=== PATIENT | male | born 1955 | race Caucasian/White ===

== ENCOUNTER → 2017-11-03 09:38 | Outpatient (CLI) | payer BC, SELFPAY ==
[2017-11-03 11:12] LABS: Blood Urea Nitrogen 19 mg/dL (7-18); Creatinine,Serum 1.07 mg/dL (0.70-1.30); Estimated Glomerular Filt Rate 70 ml/min (>60); GFR (African American) 85 ML/MIN (>60)
== END ==
PROVIDERS: Visit Provider Family Medicine
DX: R59.0 Localized enlarged lymph nodes (principal)
CPT/HCPCS: 36415; 82565; 84520

== ENCOUNTER → 2017-11-04 10:15 | Outpatient (CLI) | payer BC, SELFPAY ==
--- NOTE | 2017-11-04 10:36 | CT_ITS ---
CT abdomen pelvis w con CLINICAL INDICATION: Lymphadenopathy, right groin pain and discomfort ITS.REASON: LYMPHADENOPATHY ORDERING PHYSICIAN: Christopher Singleton MD PATIENT AGE: 62 years COMPARISON: 05/03/2013 TECHNIQUE: Axial images obtained with sagittal and coronal reformats. All CT scans at the facility use one or more dose reduction, viz: automated exposure control, ma/kV adjustment per patient size (including targeted exams where dose is matched to indication, i.e. head), or iterative reconstruction technique. PROCEDURE: Oral Contrast: Redicat IV Contrast: 75 mL's of Isovue-370. FINDINGS: Lung bases are clear. There are multiple hepatic cysts measuring up to 17 mm. No radio opaque gallstones. The spleen, adrenal glands, and pancreas are unremarkable. No renal or ureteral calculi. No hydronephrosis. There are bilateral renal cysts measuring up to 5.5 cm left. No intestinal obstruction or free air. Unremarkable appendix. No evidence of diverticulitis. There are diverticula of the descending and sigmoid colon. No pelvic mass or abnormal fluid collection or focal inflammatory change of the pelvis. There is a tiny umbilical hernia containing fat. There are scattered small lymph nodes in the mesentery's. No enlarged lymph nodes are evident within the abdomen or pelvis. Small nodes are present in the inguinal region but no enlarged lymph nodes are evident. No evidence of abdominal wall or inguinal hernia. No acute bony anomalies. Degenerative changes are present in the lumbar spine with mild chronic wedging of T12. IMPRESSION: 1. No change from 05/03/2013 with no acute abdominal or pelvic findings. 2. Multiple hepatic cysts. 3. No enlarged lymph nodes apparent. No evidence of abdominal wall hernias
== END ==
PROVIDERS: Family Provider Family Medicine; PCP Family Medicine; Visit Provider Family Medicine
DX: R59.0 Localized enlarged lymph nodes (principal)
CPT/HCPCS: 74177; Q9967

== ENCOUNTER 2018-09-16 23:46 | Emergency (ER) | payer BC, SELFPAY ==
[2018-09-16 23:46] VITALS: BP 193/85; PULSE 74; RESP 18; TEMP 36.8; O2SAT 99; BMI 31.8
--- NOTE | 2018-09-16 23:54 | [facility].EDGENADL ---
ED Disposition Clinical Impression: Cervical radiculopathy Right shoulder pain Qualifiers: Chronicity: acute Qualified Code(s): M25.511 - Pain in right shoulder Disposition: Home, Self-Care Condition on Discharge: Good Additional Instructions: Prednisone as prescribed. Follow-up with your primary care doctor, call tomorrow for appointment. Follow-up with primary care doctor for final interpretation of shoulder x-ray, bone lesion and right humerus. Return to the emergency department if symptoms worsen. Prescriptions: predniSONE [Prednisone 20mg Tab] 20 mg PO BID #10 tab Referrals: Provider,Referral, [Primary Care Provider] - - Critical Care Critical Care Time: No Attestation: On , the high probability of a clinically significant, sudden or life threatening deterioration of the following system(s) required my full and direct attention, intervention and personal management. The time I documented below is in addition to time spent performing reported procedures but includes the following listed in this critical care notation. Medical Decision Making - Chapo Inquiry Pt receiving controlled substance: No Vital Signs: 09/16/18 23:46 Temperature 98.3 F Temperature Source Oral Pulse Rate [Right Radial] 74 Respiratory Rate 18 Blood Pressure [Right Arm] 193/85 H Blood Pressure Mean [Right Arm] 121 02 Sat by Pulse Oximetry 99 Oxygen Delivery Method Room Air - Lab Data Lab Results 09/16/18 23:50: WBC 7.9, RBC 4.91, Hgb 13.4 L, Hct 43.3, MCV 88.1, MCH 27.3, MCHC 31.0 L, RDW 12.9, Plt Count 182, MPV 6.6 L, Neut % (Auto) 44.7, Lymph % (Auto) 45.9, [place] % (Auto) 6.5, Eos % (Auto) 2.2, Baso % (Auto) 0.7, Neut # (Auto) 3.5, Lymph # (Auto) 3.6, [place] # (Auto) 0.5, Eos # (Auto) 0.2, Baso # (Auto) 0.1 09/16/18 23:50: Sodium 145, Potassium 3.7, Chloride 107, Carbon Dioxide 27, Anion Gap 14.7, BUN 19 H, Creatinine 1.19, Estimated Creat Clear 105, Estimated GFR 62, Est GFR ( Amer) 75, Glucose 105, Calcium 9.3, Total Bilirubin 0.6, AST 20, ALT 33, Alkaline Phosphatase 109, Troponin I < 0.02, Total Protein 7.2, Albumin 3.9, Globulin 3.3 H, Albumin/Globulin Ratio 1.2 Result diagrams: 09/16/18 23:50 09/16/18 23:50 Orders (Tests/Meds): ED MEDICATIONS Generic Name Dose Route Start Last Admin Trade Name Freq PRN Reason Stop Dose Admin Sodium Chloride 1,000 mls @ 999 mls/hr 09/16/18 23:45 Sod Chlor 0.9% 1000ml Bag IV 09/17/18 00:45 .Q1H1M EPHRAIM ORDERS Category Date Time Status XR chest 2V Stat Exams 09/17/18 00:01 Taken XR shoulder RT min 2V Stat Exams 09/17/18 00:01 Taken - Radiology Data #1 Image(s): Chest, Shoulder Image Reviewed: Yes I reviewed the patient's radiology image Chest: No acute disease. Shoulder: Sclerotic density in proximal right humerus. Degenerative changes of acromioclavicular and glenohumeral joints. - ECG Data Tracing #1 EKG interpreted by Siddhartha Perez MD: Rhythm: sinus Rate: 69 [place]: normal Ectopy: none Conduction: normal ST Segment Changes: none T Wave Changes: none Q Waves: none No evidence of acute ischemia or injury Normal electrocardiogram General Adult HPI - General Chief complaint: Syncope Stated complaint: arm pain Time Seen by Provider: 09/17/18 01:03 Mode of Arrival: Wheelchair Limitations: No Limitations Description of Symptoms (Recalled from ER Triage Doc. by RN): while watching a movie tonight approx 15 min ago at 1130 pt right shoulder and back became numb and patient felt shaky pt states he became nauseated and tried to walk around and became light headed. pt states that he is having some shortness of breath also. pt states that his right shoulder has been bothering him for approx 1 week. - History of Present Illness HPI narrative: States he has been having pain in his right shoulder for about a week anteriorly. He put his right arm over his head tonight because he thought it made it feel bett
--- NOTE | 2018-09-17 00:01 | XR_ITS ---
XR shoulder RT min 2V Ordering Physician: Siddhartha Perez MD Patient Age: 63 years: Male HISTORY: ITS.REASON: pain pain proximal humerus just below the joint past 5 days no known injury. The lifting a Joseph's. TECHNIQUE: 3 views right shoulder. COMPARISON :Today's 09/17/2018 CXR. & September 2010 CXR Left shoulder April 2008 FINDINGS . No fracture nor dislocation at the right shoulder the glenohumeral joint is intact. Humeral head and neck intact Hypertrophic, degenerative changes at right AC joint. Inferior spurring and may encroach upon the medial outlet. There is Approximate 3 cm length x 2 cm wide focal very dense ovoid sclerotic area at the proximal right humeral shaft. No prior films for comparison.. The bone in this region shows no expansion or destruction. No endosteal changes. This dense sclerotic focus is fairly well marginated. Period Suspect more likely a indolent or benign features such as osteoma but cannot totally exclude more significant sclerotic/or blastic lesion or metastatic lesion.. Suggest a follow-up right humerus in 3-4 weeks to further evaluate. If any outside films of humerus available to confirm stability of the be helpful as well. IMPRESSION:... 1. No acute findings at the right shoulder. No fracture nor dislocation 2. . AC joint hypertrophy ... Glenohumeral joint is intact . 3.... Approximate 3 cm length x 2 cm ovoid sclerotic focus at proximal humeral shaft. More likely indolent or benign feature, but suggest Follow-Up Right Humerus radiograph within 3 - 4 weeks or sooner if pain progresses. (Any outside films of the right humerus would also be helpful to confirm stable character)
--- NOTE | 2018-09-17 00:01 | XR_ITS ---
XR chest 2V HISTORY: ITS.REASON: weakness ORDERING PHYSICIAN: Siddhartha Perez MD PATIENT AGE: 63 years Technique: PA and lateral chest COMPARISON: September 2010 PA and lateral chest FINDINGS: Lungs are clear with no active disease. No focal infiltrate. No effusion. No pulmonary nodule or mass evident. Duyen and mediastinum appear satisfactory with No hilar no mediastinal adenopathy. No pleural effusion or pneumothorax. The patient does have some progressive marginal osteophytes at the lower T-spine. The most evident progressive generous marginal osteophyte extends left at at T10-11, with marginal ossified to also seen throughout the mid right T-spine showing slight progression since 2010.. Lateral film shows mild diffuse anterior hyperostosis which has become more evident throughout the mid T-spine since 2010. CXR IMPRESSION....... Lungs clear nothing definite acute. progressive degenerative changes T-spine. . progression of marginal osteophytes & hyperostosis at T-spine
[2018-09-17 00:04] LABS: Basophils # 0.1 K/mm3 (0-0.2); Basophils % 0.7 % (0.1-2.0); Eosinophils # 0.2 K/mm3 (0.0-0.4); Eosinophils % 2.2 % (0.1-12.0); Hematocrit 43.3 % (42.0-52.0); Hemoglobin 13.4 g/dL (14.1-18.0); Lymphocytes # 3.6 K/mm3 (0.7-4.5); Lymphocytes % 45.9 % (10-50); Mean Corpuscular Hemoglobin 27.3 pg (27.0-31.2); Mean Corpuscular Volume 88.1 fl (80-94); Mean Platelet Volume 6.6 fl (7.4-10.4); Monocytes # 0.5 K/mm3 (0.1-1.0); Monocytes % 6.5 % (1.7-9.3); Neutrophils # 3.5 K/mm3 (1.8-7.8); Neutrophils % 44.7 % (37.0-80.0); Platelet Count 182 K/mm3 (142-424); Red Blood Count 4.91 M/mm3 (4.60-6.20); Red Cell Distribution Width 12.9 % (11.5-17.5); White Blood Count 7.9 K/mm3 (4.8-10.8)
[2018-09-17 00:26] LABS: Alanine Aminotransferase 33 U/L (12-78); Albumin Level 3.9 gm/dL (3.4-5.0); Albumin/Globulin Ratio 1.2 (1.1-1.8); Alkaline Phosphatase 109 U/L (46-116); Anion Gap 14.7 mEq/L (5-15); Aspartate Amino Transferase 20 U/L (15-37); Bilirubin,Total 0.6 mg/dL (0.2-1.0); Blood Urea Nitrogen 19 mg/dL (7-18); Calcium 9.3 mg/dL (8.5-10.1); Carbon Dioxide 27 mmol/L (21.0-32.0); Chloride 107 mmol/L (98-107); Creatinine Clearance Estimated 105 mL/min (50-200); Creatinine,Serum 1.19 mg/dL (0.70-1.30); Estimated Glomerular Filt Rate 62 ml/min (>60); GFR (African American) 75 ML/MIN (>60); Globulin 3.3 gm/dl (1.3-3.2); Glucose 105 mg/dL (74-106); Potassium 3.7 mmoL/L (3.5-5.1); Sodium 145 mmol/L (136-145); Total Protein,Serum 7.2 gm/dL (6.4-8.2); Troponin I < 0.02 ng/ml (0.00-0.06)
[2018-09-17 02:49] VITALS: BP 146/79; PULSE 89; RESP 17; TEMP 36.7; O2SAT 100
== END 2018-09-17 02:49 | disposition home or self-care (01) ==
PROVIDERS: Emergency Provider Emergency Medicine
DX: M54.12 Radiculopathy, cervical region (principal); M25.511 Pain in right shoulder
CPT/HCPCS: 71046; 73030; 80053; 84484; 85025; 93005; 96365; 96375; 99283

== ENCOUNTER → 2018-10-02 15:03 | Outpatient (CLI) | payer BC, SELFPAY ==
--- NOTE | 2018-10-02 15:09 | XR_ITS ---
EXAM: XR cervical spine 5V HISTORY: ITS.REASON: RT UPPER EXTREMITY NUMBNESS ORDERING PHYSICIAN: Christopher Singleton MD PATIENT AGE: 63 years COMPARISON: None FINDINGS: Normal alignment. Mild degenerative changes with small anterior osteophytes at C4, C5, and C6. Facet and uncovertebral hypertrophic changes are noted. There is mild foraminal narrowing on the right at C3-C4 and on the left at C2-C3 from facet and uncovertebral hypertrophy. No acute fracture or dislocation. No lytic or blastic change. IMPRESSION: Mild degenerative changes as described above, no acute finding. Right-sided foraminal narrowing at C3-C4 and left-sided foraminal narrowing at C2-C3
== END ==
PROVIDERS: PCP Family Medicine; Visit Provider Family Medicine
DX: R20.0 Anesthesia of skin (principal)
CPT/HCPCS: 72050

== ENCOUNTER → 2018-10-23 09:55 | Outpatient (POV) | payer BC, SELFPAY | PROVIDERS: Visit Provider Specialist | DX: R20.2 Paresthesia of skin (principal); M79.601 Pain in right arm | CPT/HCPCS: 95886; 95908 ==

== ENCOUNTER → 2018-10-23 14:06 | Outpatient (CLI) | payer BC, SELFPAY ==
--- NOTE | 2018-10-23 14:10 | XR_ITS ---
XR hip RT 2-3V w/pelvis HISTORY: ITS.REASON: RT HIP PAIN ORDERING PHYSICIAN: Christopher Singleton MD PATIENT AGE: 63 years COMPARISON: None FINDINGS: There are mild osteoarthritic changes of the right hip. Small osteophyte is noted projecting off the superior aspect of the lesser trochanter and there is a small sclerotic focus in the medial aspect of the acetabular area which may be due to small bone island. No fracture or dislocation. No lytic or blastic change. Small bone island also noted along the right ilium laterally and superiorly IMPRESSION: 1. Mild osteoarthritis of the right hip.
== END ==
PROVIDERS: PCP Family Medicine; Visit Provider Family Medicine
DX: M25.551 Pain in right hip (principal)
CPT/HCPCS: 73502

== ENCOUNTER → 2019-04-13 09:38 | Outpatient (CLI) | payer OTHER, SELFPAY ==
--- NOTE | 2019-04-13 09:42 | XR_ITS ---
PROCEDURE: XR SHOULDER RT MIN 2V CLINICAL INDICATION: RT SHOULDER PAIN COMPARISON: Shoulder R from 09/17/2018 FINDINGS: There are moderate to severe osteoarthritic changes of the acromioclavicular joint with spurring at the AC joint. Some of the spurs projecting inferior and may be causing impingement upon supraspinatus tendon. No significant subacromial stenosis. There are minor osteoarthritic changes of the glenohumeral joint. There is a densely calcified lesion involving the proximal shaft of the humerus which is well-circumscribed measuring 2.8 cm and appears stable IMPRESSION: 1. Osteoarthritic change of the AC joint with bony spurring with mild osteoarthritic changes of the glenohumeral joint. 2. Stable sclerotic lesion of the proximal humerus. This is well-circumscribed and not significantly changed Dictated by: Bimal Encarnacion MD 04/13/2019 10:06 Electronically signed by Bimal Encarnacion MD in [place] 04/13/2019 10:06
== END ==
PROVIDERS: PCP Family Medicine; Visit Provider Surgery
DX: M25.511 Pain in right shoulder (principal)
CPT/HCPCS: 73030

== ENCOUNTER → 2019-04-19 09:28 | Outpatient (CLI) | payer BC, SELFPAY ==
[2019-04-19 10:03] LABS: Blood Urea Nitrogen 23 mg/dL (7-18); Creatinine,Serum 1.04 mg/dL (0.70-1.30); Estimated Glomerular Filt Rate 72 ml/min (>60); GFR (African American) 87 ML/MIN (>60)
== END ==
PROVIDERS: Visit Provider Surgery
DX: Z01.818 Encounter for other preprocedural examination (principal); R10.9 Unspecified abdominal pain; R11.2 Nausea with vomiting, unspecified
CPT/HCPCS: 36415; 82565; 84520

== ENCOUNTER → 2019-04-20 09:29 | Outpatient (CLI) | payer BC, SELFPAY ==
--- NOTE | 2019-04-20 09:29 | CT_ITS ---
PROCEDURE: CT ABDOMEN PELVIS W CON CLINICAL INDICATION: abdominal pain COMPARISON: ABDPELW CT abdomen pelvis w con from 11/04/2017 TECHNIQUE: IV Contrast: 75ML OPTIRAY 350 Oral Contrast 20ml Gastroview Axial images obtained with sagittal and coronal reformats. All CT scans at the facility use one or more dose reduction, viz: automated exposure control, ma/kV adjustment per patient size (including targeted exams where dose is matched to indication, i.e. head), or iterative reconstruction technique. FINDINGS: LOWER THORAX: There is a small amount of atelectasis in both lung bases. ABDOMEN & PELVIS: There is fatty infiltration of the liver. Multiple hepatic and renal cysts are again noted and not significantly changed largest cyst in the lower pole the left kidney measures up to 7.5 centimeters. A 3 millimeter nonobstructing stone is seen in the lower pole of the right kidney. There is no ureteral stone. Remaining intra-abdominal organs have a normal appearance. There is no free fluid lymphadenopathy or focal inflammatory process. The appendix has a normal appearance. Calcifications are seen in the abdominal aorta and and iliac vessels. There is no aneurysm. There is colonic diverticulosis without diverticulitis. Chronic compression deformity of T12 is unchanged. Degenerative changes are seen in spine. Dystrophic calcifications are seen in the prostate gland without a discrete mass. IMPRESSION: No acute findings or significant changes compared 11/04/2017. Dictated by: Geo Lara 04/20/2019 10:48 Electronically signed by Geo Lara in [facility] 04/20/2019 10:48
== END ==
PROVIDERS: PCP Family Medicine; Visit Provider Surgery
DX: R10.9 Unspecified abdominal pain (principal)
CPT/HCPCS: 74177; Q9967

== ENCOUNTER → 2019-04-30 12:12 | Outpatient (CLI) | payer BC, SELFPAY ==
--- NOTE | 2019-04-30 12:19 | XR_ITS ---
PROCEDURE: XR ABDOMEN MIN 2V CLINICAL INDICATION: LT LOW QUAD PAIN Left lower quadrant pain COMPARISON: No exams were available for comparison FINDINGS: Upright and supine views of the abdomen show a nonspecific bowel gas pattern. No intestinal obstruction or free air. There are few scattered air-fluid levels within the small bowel which do not appear distended. There is questionable bowel wall thickening in the left mid abdominal region. Abdominal CT may provide further evaluation if clinically warranted. IMPRESSION: Nonspecific bowel gas pattern with a few scattered small bowel air-fluid levels and questionable bowel wall thickening in the mid abdominal region on the left Dictated by: Bimal Encarnacion MD 04/30/2019 13:11 Electronically signed by Bimal Encarnacion MD in [facility] 04/30/2019 13:11
== END ==
PROVIDERS: PCP Family Medicine; Visit Provider Family Medicine
DX: R10.32 Left lower quadrant pain (principal)
CPT/HCPCS: 74019

== ENCOUNTER → 2019-05-14 10:36 | Outpatient (CLI) | payer BC, SELFPAY ==
[2019-05-14 10:38] LABS: Adenovirus F 40/41, stool Not Detected (NotDetected); Astrovirus Not Detected (NotDetected); Campylobacter Not Detected (NotDetected); Clostridium Difficile A/B, PCR Not Detected (NotDetected); Cryptosporidium Not Detected (NotDetected); Cyclospora Cayetanesis Not Detected (NotDetected); Entamoeba histolytica Not Detected (NotDetected); Enteroaggregative E coli Not Detected (NotDetected); Enteropathogenic E coli Not Detected (NotDetected); Enterotoxigenic E coli Not Detected (NotDetected); Giardia lamblia Not Detected (NotDetected); Norovirus Not Detected (NotDetected); Plesimonas Shigalloides, PCR Not Detected (NotDetected); Rotavirus A Not Detected (NotDetected); Salmonella, PCR Not Detected (NotDetected); Sapovirus Not Detected (NotDetected); Shiga-like toxin E coli Not Detected (NotDetected); Shigella Enterovasive E coli Not Detected (NotDetected); Vibrio Cholerae Not Detected (NotDetected); Vibrio, PCR Not Detected (NotDetected); Yersinia Entercolitica, PCR Not Detected (NotDetected)
== END ==
PROVIDERS: Visit Provider Family Medicine
DX: R19.7 Diarrhea, unspecified (principal)
CPT/HCPCS: 87507

== ENCOUNTER → 2019-11-21 16:13 | Outpatient (CLI) | payer BC, SELFPAY ==
[2019-11-21 17:56] LABS: Blood Urea Nitrogen 20 mg/dl (9-20); Estimated Glomerular Filt Rate 68 ml/min (>60); GFR (African American) 82 ML/MIN (>60)
== END ==
PROVIDERS: Visit Provider Family Medicine
DX: K57.32 Diverticulitis of large intestine without perforation or abscess without bleeding (principal)
CPT/HCPCS: 36415; 82565; 84520

== ENCOUNTER → 2019-11-22 11:22 | Outpatient (CLI) | payer BC, SELFPAY ==
--- NOTE | 2019-11-22 11:35 | CT_ITS ---
PROCEDURE: CT ABDOMEN PELVIS W CON CLINICAL INDICATION: DIVERTICULITIS Left lower quadrant pain COMPARISON: CT CT ABDOMEN PELVIS W CON from 04/20/2019 TECHNIQUE: IV Contrast: 75ML OPTIRAY 350 Oral Contrast 450ml Redicat Axial images obtained with sagittal and coronal reformats. All CT scans at the facility use one or more dose reduction, viz: automated exposure control, ma/kV adjustment per patient size (including targeted exams where dose is matched to indication, i.e. head), or iterative reconstruction technique. FINDINGS: LOWER THORAX: 5 mm noncalcified nodules present in the right lower lobe posteriorly ABDOMEN & PELVIS: There are multiple hypodense nodules of the liver the largest in the quadrate area measuring 18 mm. These may represent hepatic cysts. The spleen, adrenal glands, and pancreas have an unremarkable appearance. There are bilateral renal cysts measuring up to 7 cm in the lower pole on the left. There is a nonobstructing 4 mm stone in the lower pole of the right kidney. No hydronephrosis. No ureteral calculi. No evidence of appendicitis. There are few scattered small mesenteric lymph nodes which are nonspecific. There is colonic diverticulosis. There is focal stranding of the pericolic fat in the left lower quadrant at the junction of the descending and sigmoid colon consistent with acute diverticulitis. No abscess or perforation. There are degenerative changes of the spine and hips. Scattered bone islands are noted. IMPRESSION: Colonic diverticulosis with acute diverticulitis involving the junction of the descending and sigmoid colon in the left lower quadrant. No evidence of abscess or perforation. Right nephrolithiasis Multiple hepatic cysts Dictated by: Bimal Encarnacion MD 11/22/2019 15:44 Bimal Encarnacion MD in [place] 11/22/2019 15:44
== END ==
PROVIDERS: PCP Family Medicine; Visit Provider Family Medicine
DX: K57.32 Diverticulitis of large intestine without perforation or abscess without bleeding (principal)
CPT/HCPCS: 74177; Q9967

== ENCOUNTER 2020-05-06 13:00 | Outpatient (RCR) | payer BC, SELFPAY ==
--- NOTE | 2020-04-28 14:43 | HMH.PTOPEV ---
PT Outpatient Evaluation Rehab PT Outpatient Evaluation Start: 04/28/20 13:06 Freq: Status: Active Protocol: Document 04/28/20 14:21 PHOASHLEY (Rec: 04/28/20 14:43 PHORNE [id number]) Electronically Signed By Vaibhav Ford, PT 04/28/20 14:21 Outpatient Therapy Subjective History Subjective History Pt is 65 yowm who presents with c/o pain in the L shld x ~ 8 mos (2 falls onto the L shld in that time-frame) and R low back x ~ 1-2 wks. He reports the low back hurts worse because I fell back into the tub because my left shoulder hurt when I was trying to get out. He reports hx of L shld RCT repair ~ 10 yrs ago and Lumbar compression fxs ~ 20 yrs ago. He reports the L shld is much improved over the past 2-3 wks. He reports the low back has improved a little over the past week and he has no pain with walking, only transfers. He reports other PMH of HTN. Chief Complaint Pain,Stiff Symptom Type Ache,Sharp Symptoms Relieved By Rest/Positioning,Heat,Ice Prior Functional Limitations None Current Functional Limitations Bending/Stooping Symptom Description Activity Dependent Level of pain today (0-10) 0 Pain scale - at its worst (0-10) 9 Shoulder/Elbow Eval Shoulder Objective Measurements Palpation Tenderness tenderness shoulder exam standard left tenderness over the bicipital tendon left shoulder exam standard Shoulder ROM Left full ROM shoulder exam standard left Shoulder MMT Shoulder Abduction Strength Grade 4- Good- Shoulder Extension Strength Grade 4- Good- Shoulder Flexion Strength Grade 4- Good- Shoulder External Rotation Strength 4 Good Grade Shoulder Internal Rotation Strength 4- Good- Grade Shoulder Special Tests Shoulder Empty Can (Supraspinatus) Test Negative Left,Negative Right Shoulder Sethi-Rodolfo Impingement Negative Right,Positive Left Test Shoulder [place] Test Negative Left,Negative Right Elbow Objective Measurements Lumbopelvic Eval Palapation tenderness right Lumbar/Sacral Palpation Findings Tenderness Lumbar/Sacral Palpation Overall Comment R SI and Quad Lumborum Accessory Movement L-spine Vertebrae Accessory Movements Central P/A Strunk that Elicit Symptoms L2
== END 2020-05-06 13:05 | disposition home or self-care (01) ==
LOC: PT 13:00
PROVIDERS: PCP Family Medicine; Visit Provider Family Medicine
DX: M54.5 Low back pain (principal); M25.512 Pain in left shoulder
CPT/HCPCS: 97010; 97014; 97033; 97035; 97110; 97140; 97163; G0283

== ENCOUNTER → 2020-05-07 12:36 | Outpatient (CLI) | payer BC, SELFPAY ==
--- NOTE | 2020-05-07 12:43 | XR_ITS ---
PROCEDURE: XR LUMBAR SPINE MIN 4V CLINICAL INDICATION: RT SIDE SACROILIAC JOINT DYSFUNCTION COMPARISON: CT CT ABDOMEN PELVIS W CON from 11/22/2019 FINDINGS: There are mild osteoarthritic changes of both SI joints with decrease in the joint spaces and mild osteosclerosis along the superior aspect of the joint. No bony lytic process evident. Mild osteoarthritis is present in the hips on both sides There is normal alignment. Mild degenerative disc disease is present at T12-L1 L2-L3 and L4-5. Mild sclerosis of the endplates are noted. A sclerotic region is present in the L3 vertebral body posteriorly at 11 mm and may be due to a bone island. There is slight decrease in height anteriorly of L3 which has developed since 11/22/2019 suggesting mild compression change. Anterior osteophytes are present at L3-L4. Possible bone island of the right ilium superiorly at 6 mm. There is chronic wedge deformity of T11 and T12 with partial fusion anteriorly and degenerative disc disease at T12-L1 with anterior osteophytes. IMPRESSION: 1. Lumbar spondylosis as described above. 2. Minimal wedge compression changes of L3 which have developed since the previous exam without retropulsion. 3. Osteoarthritic change of the SI joints Dictated by: Bimal Encarnacion MD 05/07/2020 14:01 Bimal Encarnacion MD in [place] 05/07/2020 14:01
== END ==
PROVIDERS: PCP Family Medicine; Visit Provider Family Medicine
DX: M53.3 Sacrococcygeal disorders, not elsewhere classified (principal)
CPT/HCPCS: 72110

== ENCOUNTER → 2020-05-14 15:08 | Outpatient (CLI) | payer BC, SELFPAY ==
[2020-05-14 16:50] LABS: Chloride 98 mmol/L (98-107); Potassium 3.9 mmoL/L (3.5-5.1); Sodium 138 mmol/L (136-145)
[2020-05-14 16:53] LABS: Alanine Aminotransferase 23 U/L (12-78); Albumin Level 4.6 g/dl (3.5-5.0); Albumin/Globulin Ratio 1.8 (1.1-1.8); Alkaline Phosphatase 60 U/L (38-126); Anion Gap 8.9 mEq/L (5-15); Aspartate Amino Transferase 22 U/L (17-59); Bilirubin,Total 1.2 mg/dl (0.2-1.3); Blood Urea Nitrogen 21 mg/dl (9-20); Carbon Dioxide 35 mmol/L (22.0-30.0); Estimated Glomerular Filt Rate 67 ml/min (>60); GFR (African American) 82 ML/MIN (>60); Globulin 2.6 g/dL (1.3-3.2); Total Protein,Serum 7.2 g/dl (6.3-8.2)
[2020-05-14 16:54] LABS: Calcium 9.8 mg/dl (8.4-10.2); Glucose 121 mg/dl (74-100)
== END ==
PROVIDERS: Visit Provider Family Medicine
DX: M54.41 Lumbago with sciatica, right side (principal); S32.030D Wedge compression fracture of third lumbar vertebra, subsequent encounter for fracture with routine healing
CPT/HCPCS: 36415; 80053

== ENCOUNTER → 2020-05-15 12:44 | Outpatient (CLI) | payer BC, SELFPAY ==
--- NOTE | 2020-05-15 12:48 | MR_ITS ---
PROCEDURE: MR LUMBAR SPINE WO/W CON CLINICAL INDICATION: ACUTE MIDLINE LOW BACK PAIN, COMPRESSION FX Line low back pain history of compression fracture 19 years ago. Fell 2-3 weeks ago in the bathroom now with right-sided low back pain and numbness in the right leg. Completed physical therapy x2 weeks. COMPARISON: CT CT ABDOMEN PELVIS W CON from 11/22/2019 CR XR LUMBAR SPINE MIN 4V from 05/07/2020 TECHNIQUE: Standard multiplanar multiecho sequences are performed contrast. Following administration of 23 cc ProHance intravenously. 3-D MIP and myelographic images are also rendered and reviewed FINDINGS: There is normal height and alignment of the lumbar vertebral bodies. A benign island is incidentally noted in L3. Focal edema or mode developing Modic type 1 signal is is present at the base of an osteophyte projecting from the anterior superior L4 cortex. There is otherwise normal signal throughout the lumbar vertebral bodies. There is normal height of the intervertebral discs. There is no disc herniation. There are multilevel mild diffuse endplate osteophyte disc bulges without significant narrowing the spinal canal. The spinal cord terminates at a normal level the conus. There is moderate to severe bilateral sacroiliac joint degenerative change. A left renal cyst is partly visible. Minimal visualization of the remaining surrounding structures is unremarkable. L1-2: There is mild diffuse endplate osteophyte disc bulge and mild degenerative change of the facet joints. There is no significant narrowing the central spinal. L2-3: There is mild diffuse endplate osteophyte disc bulge and mild degenerative change of the facet joints. There is no significant narrowing the central spinal. L3-4: There is mild diffuse endplate osteophyte disc bulge and mild degenerative change of the facet joints. There is mild bilateral neural foraminal narrowing. L4-5: There is mild diffuse endplate osteophyte disc bulge. There is moderate left greater and mild right facet degenerative change. There is narrowing of the lateral recesses which could impinge on the traversing L5 nerve roots. There is moderate narrowing of the neural foramina. L5-S1: There is mild diffuse endplate osteophyte disc bulge. Incidentally noted is a torn annulus fibrosis without disc herniation. There is moderate bilateral hypertrophic degenerative change of the facet joints. There is moderate bilateral foraminal narrowing. There is a short segment of articulation of the right L5 transverse process with the sacrum, separate from the facet joints. This can be a source of pain. IMPRESSION: 1. No acute disc herniation. 2. Scattered degenerative changes as described above. 3. Lateral recess and foraminal narrowing at L4-5 and moderate bilateral foraminal narrowing at L5-S1. There is no obvious impingement, however correlate clinically to determine if there are clinical findings consistent with L4 or L5 nerve root impingement. 4. SI joint degenerative change and short segment of lumbosacral articulation as further described above. Dictated by: Tomasa Franklin MD 05/16/2020 08:52 Tomasa Franklin MD in [place] 05/16/2020 08:52
== END ==
PROVIDERS: PCP Family Medicine; Visit Provider Family Medicine
DX: M54.41 Lumbago with sciatica, right side (principal); S32.030D Wedge compression fracture of third lumbar vertebra, subsequent encounter for fracture with routine healing
CPT/HCPCS: 72158; 76376; A9576

== ENCOUNTER → 2020-08-14 14:49 | Outpatient (CLI) | payer BC, SELFPAY ==
[2020-08-14 15:11] LABS: Blood Urea Nitrogen 17 mg/dl (9-20); Estimated Glomerular Filt Rate 75 ml/min (>60); GFR (African American) 91 ML/MIN (>60)
--- NOTE | 2020-08-14 16:09 | CT_ITS ---
PROCEDURE INFORMATION: Exam: CT Abdomen And Pelvis With Contrast Exam date and time: 08/14/2020 4:09 PM Age: 65 years old Clinical indication: Abdominal pain; Localized; Patient HX: Lower abd pain TECHNIQUE: Imaging protocol: Computed tomography of the abdomen and pelvis with contrast. Radiation optimization: All CT scans at this facility use at least one of these dose optimization techniques: automated exposure control; mA and/or kV adjustment per patient size (includes targeted exams where dose is matched to clinical indication); or iterative reconstruction. Contrast material: ISOVUE; Contrast volume: 75 ml; Contrast route: IV; COMPARISON: CT ABDOMEN PELVIS W CON 11/22/2019 12:04 PM FINDINGS: Liver: Multiple small hepatic cysts. Gallbladder and bile ducts: Distended gallbladder without evidence of gallstones. Pancreas: Normal. No ductal dilation. Spleen: Normal. No splenomegaly. Adrenal glands: Normal. No mass. Kidneys and ureters: 2 mm nonobstructing right renal stone. Multiple simple bilateral renal cysts measuring up to 7.8 cm in diameter. Stomach and bowel: Diverticulosis. Thickened segment of mid to distal sigmoid colon with adjacent inflammatory fat stranding. No adjacent fluid collection. Appendix: No evidence of appendicitis. Intraperitoneal space: Unremarkable. No free air. No significant fluid collection. Vasculature: Mild atherosclerotic changes are seen within the abdominal aorta and branch vasculature without evidence of aneurysm. Lymph nodes: Unremarkable. No enlarged lymph nodes. Urinary bladder: Unremarkable as visualized. Reproductive: Unremarkable as visualized. Bones/joints: Unremarkable. No acute fracture. Soft tissues: Unremarkable. IMPRESSION: 1. Sigmoid diverticulitis. 2. 2 mm nonobstructing right renal stone. 3. Simple bilateral renal cysts. No follow-up imaging recommended. COMMENTS: Consistent with the [employer]'s Incidental Findings Committee white paper (J Am Cheko Radiol 2018): Any incidental renal lesion less than 1 cm or classified as too small to characterize, or any incidental cystic renal lesion characterized as simple-appearing, is likely benign. No follow-up imaging is recommended for these lesions per consensus recommendations based on imaging criteria.
== END ==
PROVIDERS: Visit Provider Physician Assistant
DX: R10.30 Lower abdominal pain, unspecified (principal)
CPT/HCPCS: 36415; 74177; 82565; 84520; Q9967

== ENCOUNTER 2020-11-28 13:24 | Emergency (ER) | payer BC, SELFPAY ==
[2020-11-28 13:24] VITALS: BP 160/100; PULSE 92; RESP 18; TEMP 36.7; O2SAT 98; BMI 31.2
[2020-11-28 13:35] VITALS: BMI 31.2
--- NOTE | 2020-11-28 13:48 | CT_ITS ---
PROCEDURE: CT CERVICAL SPINE WO CON CLINICAL INDICATION: Fall, spine pain COMPARISON: No exams were available for comparison TECHNIQUE: Axial images obtained with sagittal and coronal reformats. All CT scans at the facility use one or more dose reduction, viz: automated exposure control, ma/kV adjustment per patient size (including targeted exams where dose is matched to indication, i.e. head), or iterative reconstruction technique. Axial spiral CT scanning performed of the cervical spine beginning at the base of the skull and continuing to the upper T-spine. 3-D multiplanar reconstruction with 3-D manipulation of volumetric data set in image rendering was completed by the radiologist and/or technologist with the supervision of the radiologist on independent workstation. FINDINGS: No fracture nor subluxation is evident. Normal prevertebral soft tissues. Facets, neural foramen and vertebral bodies intact and unremarkable. There is no significant disc space narrowing. There minor multilevel osteoarthritic changes of the apophyseal joints mid cervical spine. There is focal calcification of the posterior longitudinal ligament at the C3-4 level. Minor arthritic changes at the C1/C2 relationships. Apices of lungs are clear with no acute findings. IMPRESSION: Cervical spine intact with no acute fracture nor subluxation. Degenerate changes and osteoarthritic changes noted as described Dictated by: Dr. Keshav Jiang MD 11/28/2020 16:08 Dr. Keshav Jiang MD in [facility] 11/28/2020 16:08
--- NOTE | 2020-11-28 13:48 | CT_ITS ---
PROCEDURE: CT THORACIC SPINE WO CON CLINICAL HISTORY: Fall, spine pain COMPARISON: No exams were available for comparison TECHNIQUE: Axial images obtained with sagittal and coronal reformats. All CT scans at the facility use one or more dose reduction, viz: automated exposure control, ma/kV adjustment per patient size (including targeted exams where dose is matched to indication, i.e. head), or iterative reconstruction technique. FINDINGS: There is normal curvature and alignment. There is mild generalized osteopenia. There is mild non recent compression of T12 with possibly 25 percent loss of height anteriorly. Prominent multilevel degenerate changes are seen upper and midthoracic spine. No paraspinal mass. IMPRESSION: Osteopenia, negative for acute compression fracture Dictated by: Dr. Keshav Jiang MD 11/28/2020 16:11 Dr. Keshav Jiang MD in [facility] 11/28/2020 16:11
--- NOTE | 2020-11-28 13:48 | CT_ITS ---
PROCEDURE: CT HEAD/BRAIN WO CON CLINICAL INDICATION: Fall, spine pain COMPARISON: No exams were available for comparison TECHNIQUE: Axial images obtained. All CT scans at the facility use one or more dose reduction, viz: automated exposure control, ma/kV adjustment per patient size (including targeted exams where dose is matched to indication, i.e. head), or iterative reconstruction technique. FINDINGS: No midline shift, mass effect, intracranial hemorrhage, hydrocephalus, or extra-axial fluid collection is evident. The sylvian fissures and cortical sulci mildly. The calvarium has an unremarkable appearance. No mastoid effusion. No sinus air-fluid level. IMPRESSION: Mild age-appropriate cortical atrophy, no acute intracranial pathology noted Dictated by: Dr. Keshav Jiang MD 11/28/2020 16:03 Dr. Keshav Jiang MD in [facility] 11/28/2020 16:03
--- NOTE | 2020-11-28 13:48 | CT_ITS ---
PROCEDURE: CT LUMBAR SPINE WO CON CLINICAL HISTORY: Fall, spine pain COMPARISON: No exams were available for comparison TECHNIQUE: Axial images obtained with sagittal and coronal reformats. All CT scans at the facility use one or more dose reduction, viz: automated exposure control, ma/kV adjustment per patient size (including targeted exams where dose is matched to indication, i.e. head), or iterative reconstruction technique. FINDINGS: There is normal curvature and alignment. All lumbar vertebrae appear intact and disc spaces are well maintained. There are mild diffuse disc bulges at L 3 4 and L4-5 levels. There are mild hypertrophic facet changes at the L4-5 and L5-S1 levels. There is moderate anterior osteophytic spurring at the L2-3, L3-4 and L4-5 levels. There is no acute compression fracture seen. IMPRESSION: Mild multilevel degenerate changes as noted, mild diffuse disc bulges L3-4 and L4-5 Dictated by: Dr. Keshav Jiang MD 11/28/2020 16:14 Dr. Keshav Jiang MD in [facility] 11/28/2020 16:14
--- NOTE | 2020-11-28 13:56 | HMH.EDGENADL ---
ED Disposition Clinical Impression: Muscle spasm Strain of lumbar region Qualifiers: Encounter type: initial encounter Qualified Code(s): S39.012A - Strain of muscle, fascia and tendon of lower back, initial encounter Disposition: Home, Self-Care Condition on Discharge: Fair Instructions: DI for Low Back Pain Prescriptions: methocarbamoL [Methocarbamol 500mg Tablet] 1,000 mg PO TID 30 Days #60 tab Transmission Status: Pending to [facility] Oxycodone HCl [Oxycodone 5mg tab (IR)] 5 mg PO Q6 3 Days #14 tab [facility] predniSONE [Prednisone 20mg Tab] 20 mg PO DAILY #5 tab Transmission Status: [facility] Referrals: Christopher Singleton MD [Primary Care Provider] - - Critical Care Critical Care Time: No Attestation: On 11/28/20, the high probability of a clinically significant, sudden or life threatening deterioration of the following system(s) required my full and direct attention, intervention and personal management. The time I documented below is in addition to time spent performing reported procedures but includes the following listed in this critical care notation. Medical Decision Making - Medical Records Medical records reviewed: Yes: I reviewed the patient's medical records. - Chapo Inquiry Pt receiving controlled substance: No Vital Signs: 11/28/20 13:24 11/28/20 14:38 Temperature 98.1 F Temperature Source Oral Pulse Rate 67 Pulse Rate [Right] 92 H Respiratory Rate 18 18 Blood Pressure 118/76 Blood Pressure [Right Arm] 160/100 H Blood Pressure Mean [Right Arm] 120 02 Sat by Pulse Oximetry 98 Oxygen Delivery Method Room Air Orders (Tests/Meds): ED MEDICATIONS Generic Name Dose Route Start Last Admin Trade Name Freq PRN Reason Stop Dose Admin Sodium Chloride 10 ml 11/28/20 17:45 Sodium Chloride 0.9% 10ml Vial IV 12/28/20 17:44 NEEDED PRN to Dilute Lorazepam inj Discontinued Medications Generic Name Dose Route Start Last Admin Trade Name Freq PRN Reason Stop Dose Admin Hydromorphone HCl 1 mg 11/28/20 14:01 11/28/20 14:12 Hydromorphone 4 Mg/Ml Syringe IV 11/28/20 14:02 1 mg ONCE ONE Administration Hydromorphone HCl 1 mg 11/28/20 17:45 Hydromorphone 2mg/Ml Syringe IV 11/28/20 17:46 ONCE ONE Lorazepam 1 mg 11/28/20 13:29 11/28/20 13:42 Lorazepam 1mg Tablet PO 11/28/20 13:30 1 mg ONCE ONE Administration Lorazepam 1 mg 11/28/20 17:45 Lorazepam 2mg/Ml Vial IV 11/28/20 17:46 ONCE ONE Morphine Sulfate 4 mg 11/28/20 13:29 11/28/20 13:39 Morphine 4mg/Ml Syringe IV 11/28/20 13:30 4 mg ONCE ONE Administration Ondansetron HCl 4 mg 11/28/20 13:37 11/28/20 13:38 Ondansetron 4mg/2ml Vial IV 11/28/20 13:38 4 mg ONCE ONE Administration Medical Decision Narrative: Patient is a 65-year-old male presents the ED today with severe mid back pain after a fall. Differential diagnosis includes spinal fracture, slipped disc, muscle spasm. Patient patient has severe pain on initial evaluation IV access was obtained 4 mg of IV morphine given in addition to 1 mg of oral Ativan. Pt stated he was nauseous as well we administered 4 mg of IV Zofran. I have ordered CT of the head C-spine T-spine and L-spine for further evaluation of spinal fracture. Pain, no intracranial abnormality, no evidence of fracture of the cervical thoracic or lumbar spine. Patient reassessed, pain is improved, but is still having muscle spasm of the bilateral paraspinal muscles. Patient has no neurologic deficits on examination no lower extremity numbness or weakness, no saddle anesthesia, no difficulty urinating. And his informed at bedside that if any of the symptoms develop he is to return to the emergency department quickly. Discussed signs and symptoms of cauda equina syndrome, discussed intractable pain management at home as indications retur
[2020-11-28 14:38] VITALS: BP 118/76; PULSE 67; RESP 18
[2020-11-28 17:57] VITALS: BP 118/79; PULSE 72; RESP 18; O2SAT 97
[2020-11-28 18:00] VITALS: BP 134/61; PULSE 76; RESP 18; TEMP 36.8; O2SAT 98
== END 2020-11-28 18:10 | disposition home or self-care (01) ==
PROVIDERS: Emergency Provider Student in an Organized Health Care Education/Training Program; PCP Family Medicine
DX: S39.012A Strain of muscle, fascia and tendon of lower back, initial encounter (principal); W01.198A Fall on same level from slipping, tripping and stumbling with subsequent striking against other object, initial encounter; Y92.017 Garden or yard in single-family (private) house as the place of occurrence of the external cause
CPT/HCPCS: 70450; 72125; 72128; 72131; 99282; J2405

== ENCOUNTER 2021-01-19 10:00 | Outpatient (RCR) | payer BC, SELFPAY ==
--- NOTE | 2020-12-23 12:06 | HMH.PTOPEV ---
PT Outpatient Evaluation Rehab PT Outpatient Evaluation Start: 12/23/20 11:24 Freq: Status: Active Protocol: Document 12/23/20 11:24 EDGAR (Rec: 12/23/20 12:06 EDGAR [id number]) Electronically Signed By Oneal Merritt, PT 12/23/20 11:24 Outpatient Therapy Subjective History Subjective History Pt reports acute onset mid back following a fall on . Pt reports 'cleaning out fence row, tripped, fell backwards directly onto thoraco-lumbar junction, and hit my head too.' Pt reports Xrays were negative, and reports improved s/s since injury, however, still reports localized midline mid back pain, referred pain into paraspinal mm and ribs, and inability to play golf d/t pain. Chief Complaint Pain,Stiff Symptom Type Ache,Sharp,Dull Symptoms Relieved By Rest/Positioning,Heat,OTC Meds ,Prescription Meds Symptoms Aggravated By Bending/Stooping,Physical Activity,Twisting Prior Functional Limitations Lifting,Housework,Recreation Activity,Bending/Stooping Current Functional Limitations Lifting,Housework,Recreation Activity,Bending/Stooping Symptom Description Constant but Variable Level of pain today (0-10) 2 Pain scale - at its best (0-10) 1 Pain scale - at its worst (0-10) 5 Shoulder/Elbow Eval Shoulder Objective Measurements Posture Shoulder Posture Sitting Position (L) Rounded,(R) Rounded Shoulder Posture Standing Position (L) Rounded,(R) Rounded Scapula Posture Sitting Position (L) Protracted,(R) Protracted Scapular Posture Standing Position (L) Protracted,(R) Protracted Flexibilty Deficits Latissmus Dorsi Muscle Length (R) Mild Tightness,(L) Mild Tightness Pectoralis Minor Muscle Length (R) Mild Tightness,(L) Mild Tightness Pectoralis Major Muscle Length (R) Mild Tightness,(L) Mild Tightness Shoulder MMT Bilateral Lower Trapezius Strength Grade 3+ Fair+ Middle Trapezius Strength Grade 3+ Fair+ Rhomboids Strength Grade 3+ Fair+ Shoulder Abduction Strength Grade 4 Good Shoulder Flexion Strength Grade 4 Good Shoulder External Rotation Strength 4 Good Grade Shoulder Internal Rotation Strength 5 Normal Grade Elbow Objective Maulik
== END 2021-01-19 10:05 | disposition home or self-care (01) ==
LOC: PT 10:00
PROVIDERS: PCP Family Medicine; Visit Provider Family Medicine
DX: S23.9XXD Sprain of unspecified parts of thorax, subsequent encounter (principal)
CPT/HCPCS: 97010; 97014; 97035; 97110; 97140; 97163; G0283

== ENCOUNTER → 2021-09-07 06:35 | Outpatient (CLI) | payer MEDICARE, SELFPAY ==
--- NOTE | 2021-09-07 | CA_ITS ---
APPROVED REPORT Exam: Exercise Treadmill Technologist: Belinda Salas, Ht: 6 ft 3 in Wt: 255 lbs BSA: 2.43 m2 HR: 65 bpm BP: 143/83 mmHg Medical History Medications: Irbesartan,,,,, Aspirin,,,,, TAMSULOSIN,,,,, Lansoprazole,,,,, LoraTADINE,,,,, OxYCODONE,,,,, SuLmdac,,,,, Stress Test Details Test: Gary HR Resting HR: 75 bpm Max Heart Rate (APMHR): 155.590941 bpm Max HR Achieved: 135 bpm Target HR (85% APMHR): 131.714512 bpm % of APMHR: 87.10 Recovery HR: 90 bpm BP Resting BP: 160/79 mmHg Max BP: 202/98 mmHg Recovery BP: 186.0/90.0 mmHg ECG Resting ECG: NSR Clinical Reason for Termination: Dyspnea Exercise duration: 09:01 min Highest Stage Achieved: II Exercise capacity: 10.1 METs Stress ECG Conclusion 9 Min Max HR: 135 % of PM: 102 METs: 10.1 Test stopped due to: SOA Symptoms: No Cp Arrhythmias/Ectopy: None ST-T Changes: <1.5mm ST Segment changes Conclusion: Negative stress test. Hypertensive response. Test Summary REST . . . . . . . Sitting REST . . . . . . . Standing REST 09:32 0.0 1.2 75 . 160/ 79 . . Stage 1 01:00 10.0 1.7 98 . . . . Stage 1 02:00 10.0 1.7 101 . . . . Stage 1 03:00 10.0 1.7 99 . 180/ 90 . . Stage 2 01:00 12.0 2.5 112 . . . . Stage 2 02:00 12.0 2.5 113 . . . . Stage 2 03:00 12.0 2.5 118 . 182/ 90 . . Stage 3 01:00 14.0 3.4 126 . . . . Stage 3 02:00 14.0 3.4 130 . . . . Stage 3 03:00 14.0 3.4 135 . . . . Stage 4 00:01 16.0 4.2 135 . . . Stop exercise at 09:01 RECOVERY 01:00 0.0 0.0 103 . . . . RECOVERY 02:00 0.0 0.0 88 . 202/ 98 . . RECOVERY 03:00 0.0 0.0 91 . 202/ 98 . . RECOVERY 04:00 0.0 0.0 93 . 202/ 98 . . RECOVERY 05:00 0.0 0.0 87 . 185/ 90 . . RECOVERY 06:00 0.0 0.0 87 . 186/ 90 . . RECOVERY 06:06 0.0 0.0 89 . 186/ 90 . . Electronically signed by : King Luna MD 09/07/2021 18:42:12
--- NOTE | 2021-09-07 06:39 | NM_ITS ---
APPROVED REPORT Exam: Nuclear Stress Test Indication: Chest pain, HTN, High cholesterol, Family history Patient Location: Outpatient Stress Tech: Belinda Donahue PA Tech:Maritza Wolf, ARRT, RT (R)(N) Ht: 6 ft 3 in Wt: 255 lbs HR: 65 bpm BP: 143/83 mmHg BSA: 2.43 m2 TID: 1.22 BMI: 31.8 History: Chest pain, HTN, High cholesterol, Family history Procedure: Patient exercised on Gary protocol 9:00 minutes and sec, resting heart rate 65 bpm, resting blood pressure 143/83 mmHg, with exercise maximum heart rate achived was 135 bpm which is 102 % of the maximum predicted heart rate and blood pressure was 202/90 mmHg. Test was stopped due to SOA. Patient denied any complaint of chest pain. Patient has Good exercise capacity, achieved 10.1 METs of workload on treadmill, the blood pressure response to exercise was Hypertensive. Electrocardiogram Resting electrocardiogram shows sinus rhythm, with exercise there is less than 1.[address] segment depression noted from the baseline EKG. The EKG portion of the exercise sestamibi is negative for ischemia. Cardiac Stress and Resting SPECT Images: Cardiac Stress and Resting SPECT images were obtained using technetium 99m Myoview 30.0 mCi stress and 9.93 mCi at rest. Gated SPECT for analysis of segmental wall motion and calculation of the ejection fraction also done. Cardiac stress and rest SPECT images show uniform myocardial activity without segmental perfusion abnormality, computer derived ejection fraction is 54% with no regional wall motion abnormality, right ventricle is normal size and contractility. Prone images were also obtained. Conclusion: 1. The EKG portion of the exercise Myoview is negative for ischemia, patient has good exercise capacity achieved 10.1 METs of workload on treadmill, the blood pressure response to exercise was hypertensive, there was no exercise-induced chest discomfort. 2. No scintigraphic evidence of reversible ischemia seen at this level of exercise, computer derived ejection fraction 54% with no regional wall motion abnormality, right ventricle is normal size and contractility. 3. Normal exercise Myoview study except for hypertensive blood pressure response. Electronically signed by : King Luna MD 09/07/2021 18:45:57
--- NOTE | 2021-09-07 08:37 | HMH.ITSHM ---
Current Home Medications as stated by this patient Lawrence Walsh or digital sales representative. []METRONIDAZOLE METHOCARBAMAL LEVOFLOXACIN HYOSCYAMINE TAMSULOSIN SULINDAC OXYCODONE LORATADINE LANSOPRAZOLE IRBESARTAN ASA
== END ==
PROVIDERS: PCP Family Medicine; Visit Provider Family Medicine
DX: R07.9 Chest pain, unspecified (principal)
CPT/HCPCS: 78452; 93017; A9502

== ENCOUNTER → 2022-02-23 09:54 | Outpatient (POV) | payer MEDICARE, SELFPAY | PROVIDERS: Visit Provider Dermatology | DX: Z00.00 Encounter for general adult medical examination without abnormal findings (principal) ==

== ENCOUNTER → 2023-01-11 10:25 | Outpatient (POV) | payer MEDICARE, SELFPAY | PROVIDERS: Visit Provider Dermatology | DX: Z00.00 Encounter for general adult medical examination without abnormal findings (principal) ==

== ENCOUNTER 2024-03-07 11:00 | Outpatient (RCR) | payer MEDICARE, SELFPAY ==
--- NOTE | 2023-12-14 10:51 | HMH.OTOPEV ---
OT Inpatient Evaluation Rehab OT Outpatient Eval Start: 12/14/23 10:34 Freq: Status: Active Protocol: Document 12/14/23 10:34 RMARSHALL (Rec: 12/14/23 10:51 [facility] [id number]) E-signed By Nandini Jeter, OT Outpatient Therapy Subjective History Subjective History Pt seen this date for initial evaluation on left shoulder. Pt is right hand dominant. Previous incidence with skin cancer ~6-7 years ago. Pt reports having RTC surgery on left UE ~12-15 years ago. However, around 10/02/23 pt fell and landed on left shoulder while loading hay. Afterwards, pt had significant pain in left shoulder that woke him up while sleeping. Pt has been engaging in UE exercises at home using pulleys, green TheraBand, and dumbells. With the pulleys, pt reports having minimal difficulty with flexion and abduction, but has significant pain with horizonal abduction. Pt frequently plays golf and experiences pain during his back swing. Pt does demonstrate with decreased AROM and strength of left shoulder. Pt will continue to be seen for OT services to address shoulder deficits. New diagnosis of cancer in past 12 No months? Chief Complaint Pain,Stiff,Weakness Symptom Type Ache,Throb,Sharp,Dull Symptoms Relieved By Rest/Positioning Symptoms Aggravated By Physical Activity,Lifting Prior Functional Limitations None Current Functional Limitations Reaching,Lifting,Housework, Driving,Recreation Activity Symptom Description Intermittent,Activity Dependent Level of pain today (0-10) 0 Pain scale - at its best (0-10) 0 Pain scale - at its worst (0-10) 7 Shoulder/Elbow Eval Shoulder Objective Measurements Shoulder ROM Left Shoulder Abduction Active Range of 145 degrees Motion (degrees) Shoulder Flexion Active Range of Motion 135 degrees (degrees) Query Text: Shoulder External Rotation Active Range 50 degrees of Motion (degrees) Shoulder Internal Rotation Active Range 70 degrees of Motion (degrees) Shoulder MMT Shoulder Abduction Strength Grade 4- Good- Shoulder Flexion Strength Grade 4- Good- Shoulder External Rotation Strength 4- Good- Grade Shoulder Internal Rotation Strength 4- Good- Grade Shoulder Strength Patient Testing Sitting Position Elbow Objective Measurements OT Outpatient Assessment Impairments Problems/Impairments Palpation Tenderness,Impaired Range of Motion,Impaired Strength,Impaired Endurance, Impaired Lifting,Impaired Household Care,Impaired Recreational Activities, Subjective C/O Pain Prognosis Rehab Potential Good Clinical Impression Consistent with Diagnosis Yes Short Term Goals Number of Weeks 3 Increase Range of Motion Yes: Flex: 145 ABd: 155 ER: 70 Increase Strength Yes: 4/5 throughout left shoulder Increase Endurance Yes: Pt will tolerate L shoulder exercises for ~30 min prior to rest. Decrease Subjective C/O Pain Yes: 5/10 at worst Patient to be Ind w/ HEP Yes: AROM/AAROM exercises; Luke exercises GTB Usp Goals Number of Weeks 6 Increase Range of Motion Yes: Flex: 155 Abd: 160 ER: 80 Increase Strength Yes: 5/5 throughout left shoulder Increase Endurance Yes: Pt will tolerate L shoulder exercises for ~40 minutes prior to rest. Decrease Subjective C/O Pain Yes: 3/10 at worst Patient to be Ind w/ Advanced HEP Yes: Advanced strengthening exercises Outpatient Therapy Plan of Care Treatment Plan May Include Therapeutic Exercise Including Home Yes Exercise Program Manual Therapy Techniques Yes Neuromuscular Re-education Yes Therapeutic Activities to Return to Yes Previous Functional/Work Level ADL/Self Care Education Yes Dry Needling Yes Thermal Modalities Yes Electrical Stimulation Yes Ultrasound/Phonophoresis Yes Iontophoresis Yes Orthotics/Bracing/Splinting Yes Massage Yes Eval/Re-Eval Yes Frequency Times per week 2 Duration Number of Weeks 6 Addendums This patient is a candidate for social No or vocational rehab? Patient/Guardian verbally acknowledges Yes understanding of treatment program and consents to further treatment? Patient/Guardian verbally acknowledges Yes understanding of diagnosis, prognosis and goals for treatment? Eval Complexity OT Charge [id number] - Moderate Complexity PHYSICIAN CERTIFICATION: I certify the specified therapy services for Lawrence Walsh are required, authorized, and reviewed every 30 days.
--- NOTE | 2024-01-10 08:56 | HMH.RHREAS ---
Rehab Reassessment Rehab OP Re-assessment Start: 12/14/23 10:34 Freq: Status: Active Protocol: Document 01/10/24 08:04 MARCY (Rec: 01/10/24 08:56 MARCY [id number]) E-signed By Nandini Jeetr OT Rehab Re-assessment Subjective Subjective Well I golfed yesterday so it 's a little wore. Objective Objective Notes Pt continues to be seen weekly in order to address left shoulder deficits. Each session pt engages in L shoulder AROM, AAROM, and strengthening exercises. Pt also receives PROM manual stretching in all planes: flexion, abduction, ER, and IR . Pt usually refuses modalities. Assessment Progress Assessment Slower Than Expected Assessment Notes Pt is currently only being seen one time a week per his request, therapist has recommended upping therapy to twice a week. Pt is agreeable to this plan. Pt missed last week because he was on vacation. Pt reports worst pain reaching 7/10 especially during certain movements. Pt is very consistent with completing HEP independently. Pt's AROM has improved with flexion and er, but remains very limited. Current L shoulder AROM Flex: 145 degrees Abd: 145 degrees ER: 65 degrees IR: [address] degrees [address] goals [address] and 5 Goals Not Met See below Revised Goals ST, 2, and 4 LT-5 Plan Plan Continue with OT plan of care at this time Therapist also recommends returning to PCP for more imaging such as MRI. Pt agreeable with this plan as well. Frequency of Therapy 2x's a week Duration of therapy 4 more weeks Time and Billing Re-Eval Time 9 Re-Eval Billing Units 1 PHYSICIAN CERTIFICATION: I certify the specified therapy services for Lawrence Walsh are required, authorized, and reviewed every 30 days.
--- NOTE | 2024-02-09 08:25 | HMH.RHREAS ---
Rehab Reassessment Rehab OP Re-assessment Start: 12/14/23 10:34 Freq: Status: Active Protocol: Document 02/09/24 08:06 MARCY (Rec: 02/09/24 08:25 MARCY [id number]) E-signed By Nandini Jeter OT QuickDASH Activities Please rate your ability to do the following activities in the last week by selecting the number below the appropriate response. 1. Open a tight or new jar. Moderate difficulty 2. Do heavy material control associate (e.g., wash Severe difficulty elaine, floors). 3. Carry a shopping bag or briefcase. Mild difficulty 4. Wash your back. Moderate difficulty 5. Use a knife to cut food. No difficulty 6. Recreational activities in which you Moderate difficulty take some force or impact through your arm, shoulder, or hand (e.g., golf, hammering, tennis, etc.). 7. During the past week, to what extent Slightly has your arm, shoulder or hand problem interfered with your normal social activities with family, friends, neighbors or groups? 8. During the past week, were you Moderately limited limited in your work or other regular daily activites as a result of your arm, shoulder or hand problem? 9. Arm, shoulder or hand pain. Moderate 10. Tingling (pins and needles) in your None arm, shoulder or hand. 11. During the past week, how much Moderate difficulty difficulty have you had sleeping because of the pain in your arm, shoulder or hand? Quick DASH 28 Rehab Re-assessment Subjective Subjective I think the therapy is helping me. Objective Objective Notes Pt continues to be seen weekly in order to address left shoulder deficits. Each session pt engages in L shoulder AROM, AAROM, and strengthening exercises. Pt also receives PROM manual stretching in all planes: flexion, abduction, ER, and IR . Pt usually refuses modalities. Assessment Progress Assessment Slower Than Expected Assessment Notes Pt has been consistent about attending therapy sessions 2x' s a week within the past month . Pt reports worst pain reaching 5/10 especially during certain movements such as abduction and cross body motions. Pt is very consistent with completing HEP independently. Pt's AROM has remained the same since last re-assessment. He has most pain with abduction, ER, and IR. Pt's strength has improved since last re- assessment and he is now able to tolerate more exercise reps . Current L shoulder AROM Flex: 150 degrees Abd: 140 degrees ER: 65 degrees IR: [address] degrees Patient goals [address], 3, 4, and 5 Goals Not Met See below Revised Goals ST LT-5 Plan Plan Continue with OT plan of care at this time Therapist also recommends returning to PCP for more imaging such as MRI. Pt agreeable with this plan as well. Frequency of Therapy 2x's a week Duration of therapy 4 more weeks Time and Billing Re-Eval Time 8 Re-Eval Billing Units 1 Charge for OT reassessment? No PHYSICIAN CERTIFICATION: I certify the specified therapy services for Lawrencerayshawn Walsh are required, authorized, and reviewed every 30 days.
== END 2024-03-07 23:59 | disposition home or self-care (01) ==
LOC: OT 11:00
PROVIDERS: Visit Provider Family Medicine
DX: M25.512 Pain in left shoulder (principal)
CPT/HCPCS: 97014; 97110; 97140; 97166; 97530; G0283

== ENCOUNTER 2024-03-13 11:36 | Outpatient (CLI) | payer MEDICARE, SELFPAY ==
--- NOTE | 2024-03-13 11:42 | XR_ITS ---
FINAL REPORT CLINICAL HISTORY: LEFT SHOULDER PAIN COMPARISON: None FINDINGS: LEFT SHOULDER 3 views show no evidence of acute displaced fracture or dislocation of the visualized bony architecture. There are moderate degenerative changes of the acromioclavicular and glenohumeral joints. IMPRESSION: Degenerative changes without acute abnormality. Reviewed, Interpreted and Dictated by Christopher Jaramillo MD Transcribed by Елена Aponte Authenticated and [facility]
== END 2024-03-13 23:59 | disposition home or self-care (01) ==
LOC: RAD 11:38
PROVIDERS: PCP Nurse Practitioner Family; Visit Provider Nurse Practitioner Family
DX: M25.512 Pain in left shoulder (principal)
CPT/HCPCS: 73030

== ENCOUNTER 2024-03-26 10:20 | Outpatient (CLI) | payer MEDICARE, SELFPAY ==
[2024-03-26 11:14] LABS: Blood Urea Nitrogen 21 mg/dl (9-20); Estimated Glomerular Filt Rate 74 ml/min (>60); GFR (African American) 90 ML/MIN (>60)
[2024-03-27 03:37] LABS: Sex Hormone Binding Globulin 49.9 nmol/L (19.3-76.4)
[2024-03-27 04:07] LABS: PSA, Free 1.74 ng/mL; Prostate Specific Ag 3.6 ng/mL (0.0-4.0); Testosterone,Total 556 ng/dL (264-916)
== END 2024-03-26 23:59 | disposition home or self-care (01) ==
LOC: LAB 10:22
PROVIDERS: PCP Family Medicine; Visit Provider Urology
DX: Z12.5 Encounter for screening for malignant neoplasm of prostate (principal); N52.9 Male erectile dysfunction, unspecified; N40.2 Nodular prostate without lower urinary tract symptoms
CPT/HCPCS: 36415; 82565; 84153; 84154; 84270; 84403; 84520

== ENCOUNTER 2024-05-14 14:32 | Outpatient (CLI) | payer MEDICARE, SELFPAY ==
[2024-05-15 08:21] LABS: PSA, Free 0.43 ng/mL; Prostate Specific Ag 1.3 ng/mL (0.0-4.0)
== END 2024-05-14 23:59 | disposition home or self-care (01) ==
LOC: LAB 14:34
PROVIDERS: PCP Family Medicine; Visit Provider Urology
DX: N40.0 Benign prostatic hyperplasia without lower urinary tract symptoms (principal); R97.20 Elevated prostate specific antigen [PSA]
CPT/HCPCS: 36415; 84153; 84154

== ENCOUNTER 2024-05-15 11:24 | Outpatient (CLI) | payer MEDICARE, SELFPAY ==
--- NOTE | 2024-05-15 11:29 | XR_ITS ---
FINAL REPORT CLINICAL HISTORY: COUGH X3 WEEKS FINDINGS: 2 views of the chest were obtained . The heart is normal in size. The mediastinum is within normal limits. There is emphysematous change. The lungs are otherwise clear. There is no pneumothorax. Osseous structures demonstrate a likely chronic lower thoracic compression fracture. IMPRESSION: No acute cardiopulmonary process. Reviewed, Interpreted and Dictated by Kitty Shearer MD Transcribed by Kandace Hollis Authenticated and [facility]
== END 2024-05-15 23:59 | disposition home or self-care (01) ==
LOC: RAD 11:26
PROVIDERS: PCP Family Medicine; Visit Provider Nurse Practitioner Family
DX: R05.9 Cough, unspecified (principal)
CPT/HCPCS: 71046

== ENCOUNTER 2024-10-03 15:34 | Outpatient (CLI) | payer MEDICARE, SELFPAY ==
--- OUTSIDE RECORDS SUMMARY | 2024-06-05 05:45 | XMS_ITS ---
Author Organization [facility] Address [address] [place] [id number] Care Team Providers Care Line Decorator Name Role Phone Ap Singleton Primary Care Provider [phone] Beverley Franz Unavailable [phone] Allergies Allergen (clinical drug ingredient) Drug/Non Drug Allergy documented on EMR Reaction Allergy Type Onset Date Status erythromycin Erythromycin Unknown Drug Allergy A ctive atorvastatin Atorvastatin Unknown Drug Allergy A ctive Results Component Value Reference Range Notes P-Comprehensive Metabolic Pa caleb (CMP) Reviewed date:06/06/2024 04:33:36 PM Interpretation:Normal Performing Lab: Notes/Report: Test performed by [employer], [employer] [address] [place] [address] , [address], [place] [address] Delmar Jaramillo MD, Correspondence Transcriber CLIA: [id number] Sodium 140 135-145 mmol/L Potassium 4.3 3.5-5.3 [...] Omeprazole 40 MG take [address] [facility] once daily 30 minutes before morning [...] Duration: 30 days 05/15/2024 Active Vital Signs Blood pressure systolic 126 mm Hg 06/06/19 25 Blood pressure diastolic 78 mm Hg 025 Heart Rate 67 /min 06/05/2024 Height 75.50 in 06/05/2024 Weight 253.4 lbs 06/05/2024 BMI 31.25 kg/m2 06/05/2024 Encounters Encounter Location Date [facility] [address] [phone] 06/05/2024 Beverley Franz Gastroesophageal reflux disease without esophagitis K21.9 ; Essential hypertension I10 and Pure hypercholesterolemia E78.00 Assessments Encounter Date Diagnosis (ICD Code) Assessment Notes Treatment Notes Treatment Clinical Notes Section Notes 06/05/2024 Gastroesophageal ref lux disease without esophagitis (ICD-10 - K21.9) will try RX to see about cost; will also do without for [id number] to see if cough returns 06/05/2024 Essential [...] about cost; will also do without for [id number] to see if cough returns Pure hypercholesterolemia reviewed Lipid s with LDL at 144; discussed low fat/cholesterol diet; he has several dietary changes that he will make; does not want to take a statin due to SE of joint pain; will recheck Lipids after 4 months with dietary changes Next Appt Details Follow Up: 4 Months,and prn, Reason: Provider Name:Reena cedillo, 10/03/2024 03:00:00 PM, [address], [address], [place], [place], [phone], Provider Name:Beverley elena, 04/08/2025 10:00:00 AM, [address], [address], [place], [place], [phone], Progress Notes * JEET CARRDOB:07/1954 (69 yo M)Acc No.[id number]:06/05/2024 Patient: BERONICA EDWARDSMOND Provider: TARIQ Arguelles :1955 A ge:69 Y S ex:Male Date:06/05/2024 Address:[address] [facility] [address] [place] [facility] [id number] Pcp:Ap Singleton Subjective: * Chief Complaints: * [...] Hospitalization/Major Diagno stic Procedure: D iverticulitis 12-17-09, [facility] ER-right arm pain 09/16/18. * Family History: [...] * Images: Billing Information: * Visit Code: 96176 Office Visit, Est Pt., Level 3. * Procedure Codes: G2211 Complex e/m visit add on. 3074F SYST BP LT 130 MM HG. 3078F DIAST BP < 80 MM HG. * Electronic signature of Wen Franz APRN on 10/03/2024 at 03:38 PM EDT Sign off status: Pending * Provider: TARIQ Arguelles Date: 0 06/05/2024 Generated for Dutch potter/Denis/eTransmitting on: 0 10/03/2024 03:38 PM EDT History and Physical Notes * HPI (History [...]
--- OUTSIDE RECORDS SUMMARY | 2024-10-02 05:30 | XMS_ITS ---
Author Organization [facility] Address [address] [facility] [address] [place] [phone] Care Team Providers Care Supervisor Dock Name Role Phone Ap Singleton Primary Care Provider [phone] Beverley Franz Unavailable [phone] Allergies Allergen (clinical drug ingredient) Drug/Non Drug [...] W/U Status Risk Notes Problem Environmental allergy (974599916) Environmental allergies (Z91.048) Active confirmed Vital Signs Blood pressure systolic 130 mm Hg 10/03/19 25 Blood pressure diastolic 76 mm Hg 025 Heart Rate 64 /min 10/02/2024 Height 75.50 in 10/02/2024 Weight 247 lbs 10/02/2024 BMI 30.46 kg/m2 10/02/2024 Encounters Encounter Location Date Provider Diagnosis [facility] [address] [facility] [address] [facility] [address] [place] [phone] 10/02/2024 Beverley Franz Gastroesophageal ref lux disease without esophagitis K21.9 ; Environmental allergies Z91.048 ; Reflux K21.9 ; Acute diarrhea R19.7 and Lesion of skin of nose L98.9 Assessments Encounter Date Diagnosis (ICD Code) Assessment Notes Treatment Notes Treatment Clinical Notes Section Notes 10/02/2024 Gastroesophageal reflux disease without esophagitis (ICD-10 - K21.9) will try RX to see about cost; will also do without for [id number] to see if cough returns 10/02/2024 Environmental [...] screen; he does play alot of golf Plan Of Treatment Medication Medication Name Sig Start Date Stop Date Notes Loratadine 10 MG 1 tablet Orally Once a day Voquezna 10 MG 1 tablet Orally Once a day; Duration: 30 days has failed PPI Treatment Notes Assessment Notes Gastroesophageal reflux dise ase without esophagitis will try RX to see about cost; will also do without for [id number] to see if cough returns Environmental allergies [...] Follow Up: 6 Months,and prn, Reason: Provider Name:Reena Rodriguez nguyen, 10/03/2024 03:00:00 PM, [address], [place], [phone], Provider Name:Beverley elena, 04/08/2025 10:00:00 AM, [facility] [address] [facility], [address], [place], [place], [phone], Progress Notes * JEET CARRDOB:07/1954 (69 yo M)Acc No.[id number]:10/02/2024 Progress Notes Patient: BERONICA EDWARDSMOND Provider: TARIQ Arguelles :1955 A ge:69 Y S ex:Male Date:10/02/2024 Address:[facility] [address] [id number] Pcp:Ap Singleton Subjective: * Chief Complaints: * [...] Hospitalization/Major Diagno stic Procedure: D iverticulitis 12-17-09, [facility] ER-right arm pain 09/16/18. * Family [...] esion of skin of nose - L98.9 Plan: * Treatment: Value Reference Range w [...] about cost; will also do without for ejnkb2ofoj to see if cough returns ?3.?Reflux? Notes: will do GI consult??4.?Acute diarrhea? Notes: encouraged bland diet until diarrhea ceases??5.?Lesion of skin of nose? Notes: has derm appt 12/2024 ; reinforced use of sun screen; he does play alot of golf?? * Procedure Codes: 3 6416 CAPILLARY BLOOD DRAW, 73834 CBC WITH AUTO DIFF * Follow Up: 6 Months,and prn * Images: Billing Information: * Visit Code: 67625 Office Visit, Est Pt., Level 3. * Procedure Codes: 40827 CAPILLARY BLOOD DRAW. 30663 CBC WITH AUTO DIFF. * Electronic signature of Wen Franz , DIRECT CARE PROFESSIONAL on 10/03/2024 at 03:39 PM EDT Sign off status: Pending * Provider: TARIQ Arguelles Date: 0 10/02/2024 Generated for Dutch potter/Faxing/eTransmitting on: 0 10/03/2024 03:39 PM EDT History and Physical Notes * [...]
--- OUTSIDE RECORDS SUMMARY | 2024-10-03 15:38 | XMS_ITS ---
Author Organization Unknown Allergies, Adverse Reactions and Alerts Date IsAllergic OnsetDate Allergen Reaction Type Severity Josh rgyCode Legacyallergictoid ReactionCode ReactionCodeSystemID 07/05 00:00 :00 1 Atorvasta tin 07/05 00:00 :00 1 Erythromy [facility] [id number]
--- OUTSIDE RECORDS SUMMARY | 2024-10-03 15:39 | XMS_ITS | Data Portability ---
Author Organization [facility] LUD[facility] [place] [facility] Address [address] [facility] [place] [address] Care Team Providers Care Rn Clinical Name Role Phone KORYANTHONY Primary Care Provider [phone] Assessment No assessment recorded. Plan of Treatment Reminders Order Date Submit Date Provider Last Modified By Organization Details Last Modified Time Details Appointments RECHECK 2024 02:00P M KRISTOPHER MOSLEY MD Not available Not available Not available Lab urinalysi s panel, auto [address] [facility], [address], [address], [place], [address], 09/08/2024 07:38:30 urinalysi s panel, auto [email or web address] [facility], [facility] [address], [place], [address], 06/29/2024 15:47:39 Referral None recorded. Procedures None recorded. Surgeries None recorded. Imaging None recorded. Medication Orders cefuroxim e axetil 500 mg tablet 2024 025 [facility], [address], [place], [address], 06/29/2024 15:47:45 tamsulosi n 0.4 mg capsule 2024 025 [facility], [address] [place], [address], 06/29/2024 15:47:46 tadalafil 5 mg tablet 2024 025 [facility], [address] [place], [address], 06/29/2024 15:47:44 Patient TargetsNo targets recorded. Patient InstructionsNo instructions recorded. Reason for Referral None Reported. Results Created Date Observation Date Name Description Value Unit Range Abnormal Flag Note LastModifiedBy Organization Detail LastModifiedTime 06/30/1906/29/2024 urina lysis panel , auto Unknown Analyte Clean Catch Not Available [facility] [address], [place], [address], 06/29/2024 12:00:13 06/30/19 25 06/29/2024 urina lysis panel , auto Unknown Analyte Yellow Not Available [facility] [address], [place], [address], 06/29/2024 12:00:13 06/30/19 25 06/29/2024 urina lysis panel , auto Unknown Analyte Clear Not Available [facility] [address], [place], [address], 06/29/2024 12:00:13 06/30/19 25 06/29/2024 urina lysis panel , auto Unknown Analyte 1.030 Not Available [facility] [address], [place], [address], 06/29/2024 12:00:13 06/30/19 25 06/29/2024 urina lysis panel , auto Unknown Analyte 1.003 - 1.030 Not Available [facility] [address], [place], [address], 06/29/2024 12:00:13 06/30/19 25 06/29/2024 urina lysis panel , auto Unknown Analyte 7.0 Not Available [facility] [address], [place], [address], 06/29/2024 12:00:13 06/30/1906/29/2024 urina lysis panel , auto Unknown Analyte 5.0 - 8.0 Not Available [facility] [address], [place], [address], 06/29/2024 12:00:13 06/30/19 25 06/29/2024 urina lysis panel , auto Unknown Analyte 25 Yue/uL Not Available [facility] [address], [place], [address], 06/29/2024 12:00:13 06/30/19 25 06/29/2024 urina lysis panel , auto Unknown Analyte Negati ve Not Available [facility] [address], [place], [address], 06/29/2024 12:00:13 06/30/1906/29/2024 urina lysis panel , auto Unknown Analyte POSITI VE (Abnor mal) Not Available [facility] [address], [place], [address], 06/29/2024 12:00:13 06/30/19 25 06/29/2024 urina lysis panel , auto Unknown Analyte Negati ve Not Available [facility] [address], [place], [address], 06/29/2024 12:00:13 06/30/19 25 06/29/2024 urina lysis panel , auto Unknown Analyte Negati ve Not Available [facility] [address], [place], [address], 06/29/2024 12:00:13 06/30/1906/29/2024 urina lysis panel , auto Unknown Analyte Negati ve Not Available [facility] [address], [place], [address], 06/29/2024 12:00:13 06/30/19 25 06/29/2024 urina lysis panel , auto Unknown Analyte Normal Not Available [facility] [address], [place], [address], 06/29/2024 12:00:13 06/30/1906/29/2024 urina lysis panel , auto Unknown Analyte Normal Not Available [facility] [address], [place], [address], 06/29/2024 12:00:13 06/30/1906/29/2024 urina lysis panel , auto Unknown Analyte Negati ve Not Available [facility] [address], [place], [address], 06/29/2024 12:00:13 06/30/19 25 06/29/2024 urina lysis panel , auto Unknown Analyte Negati ve Not Available [facility] [address], [place], [address], 06/29/2024 12:00:13 06/30/19 25 06/29/2024 urina lysis panel , auto Unknown Analyte Normal Not Available [facility] [address], [place], [address], 06/29/2024 12:00:13 06/30/19 25 06/29/2024 urina lysis panel , auto Unknown Analyte Normal Not Available [facility] [address], [place], [address], 06/29/2024 12:00:13 06/30/19 25 06/29/2024 urina lysis panel , auto Unknown Analyte Negati ve Not Available [facility] [address], [place], [address], 06/29/2024 12:00:13 06/30/19 25 06/29/2024 urina lysis panel , auto Unknown Analyte Negati ve Not Available [facility] [address], [place], [address], 06/29/2024 12:00:13 06/30/19 25 06/29/2024 urina lysis panel , auto Unknown Analyte Negati ve Not Available [facility] [address], [place], [address], 06/29/2024 12:00:13 06/30/19 25 06/29/2024 urina lysis panel , auto Unknown Analyte Negati ve Not Available [facility] [address], [place], [address], 06/29/2024 12:00:13 09/04/19 25 09/03/2024 urina lysis panel , auto Unknown Analyte Clean Catch Not Available [facility] [address], [place], [address], 09/03/2024 14:25:00 09/04/19 25 09/03/2024 urina lysis panel , auto Unknown Analyte Yellow Not Available [facility] [address], [place], [address], 09/03/2024 14:25:00 09/04/19 25 09/03/2024 urina lysis panel , auto Unknown Analyte Clear Not Available [facility] [address], [place], [address], 09/03/2024 14:25:00 09/04/1909/03/2024 urina lysis panel , auto Unknown Analyte 1.015 Not Available [facility] [address], [place], [address], 09/03/2024 14:25:00 09/04/19 25 09/03/2024 urina lysis panel , auto Unknown Analyte 1.003 - 1.030 Not Available [facility] [address], [place], [address], 09/03/2024 14:25:00 09/04/19 25 09/03/2024 urina lysis panel , auto Unknown Analyte 6.0 Not Available [facility] [address], [address], 09/03/2024 14:25:00 09/04/19 25 09/03/2024 urina lysis panel , auto Unknown Analyte 5.0 - 8.0 Not Available [facility] [address], [place], [address], 09/03/2024 14:25:00 09/04/19 25 09/03/2024 urina lysis panel , auto Unknown Analyte Negati ve Not Available [facility] [address], [place], [address], 09/03/2024 14:25:00 09/04/19 25 09/03/2024 urina lysis panel , auto Unknown Analyte Negati ve Not Available [facility] [address], [place], [address], 09/03/2024 14:25:00 09/04/19 25 09/03/2024 urina lysis panel , auto Unknown Analyte Negati ve Not Available [facility] [address], [place], [address], 09/03/2024 14:25:00 09/04/19 25 09/03/2024 urina lysis panel , auto Unknown Analyte Negati ve Not Available [facility] [address], [place], [address], 09/03/2024 14:25:00 09/04/19 25 09/03/2024 urina lysis panel , auto Unknown Analyte Negati ve Not Available [facility] [address], [place], [address], 09/03/2024 14:25:00 09/04/19 25 09/03/2024 urina lysis panel , auto Unknown Analyte Negati ve Not Available [facility] [address], [place], [address], 09/03/2024 14:25:00 09/04/19 25 09/03/2024 urina lysis panel , auto Unknown Analyte Normal Not Available [facility] [address], [place], [address], 09/03/2024 14:25:00 09/04/19 25 09/03/2024 urina lysis panel , auto Unknown Analyte Normal Not Available [facility] [address], [place], [address], 09/03/2024 14:25:00 09/04/19 25 09/03/2024 urina lysis panel , auto Unknown Analyte Negati ve Not Available [facility] [address], [place], [address], 09/03/2024 14:25:00 09/04/19 25 09/03/2024 urina lysis panel , auto Unknown Analyte Negati ve Not Available [facility] [address], [place], [address], 09/03/2024 14:25:00 09/04/19 25 09/03/2024 urina lysis panel , auto Unknown Analyte Normal Not Available [facility] [address], [place], [address], 09/03/2024 14:25:00 09/04/19 25 09/03/2024 urina lysis panel , auto Unknown Analyte Normal Not Available [facility] [address], [place], [address], 09/03/2024 14:25:00 09/04/19 25 09/03/2024 urina lysis panel , auto Unknown Analyte Negati ve Not Available [facility] [address], [place], [address], 09/03/2024 14:25:00 09/04/19 25 09/03/2024 urina lysis panel , auto Unknown Analyte Negati ve Not Available [facility] [address], [address], 09/03/2024 14:25:00 09/04/19 25 09/03/2024 urina lysis panel , auto Unknown Analyte 50 Carlos Manuel/uL Not Available [facility] [address], [place], [address], 09/03/2024 14:25:00 09/04/19 25 09/03/2024 urina lysis panel , auto Unknown Analyte Negati ve Not Available [facility] [address], [place], [address], 09/03/2024 14:25:00 Result Notes None recorded. Problems No Known Problems Procedures Surgical History Date Name Laterality Status Provider Name and Address Organization Details Recorded Time procedure on shoulder completed Antonieta Kelly [facility] 06/29/2024 12:21:53 Imaging Results None recorded. Procedure Notes None recorded. Medical Equipment None Reported. Allergies Allergen ID Allergen Name Allergen Category Reaction Reaction Severity Criticality Documentation Date Start Date Code Code System Note Provider Name and Address Organization Details Recorded Time 286238 E-Mycin medicatio n Not available Not available Not available 02/20/2016201460 8 RxNorm Comme nt: Olegario ed By: Aubree schrader Date: 2014 9:49: 34 AM; Not Available [facility] 6 08:11:38 Medications Name Sig Start Date Stop Date Status Note LastModified by Organization Details LastModified Time tamsulosin 0.4 mg capsule Take 1 capsule twice a day by oral route. 2024 active Not Available Not Available Not Avai lable cefuroxime axetil 500 mg tablet Take 1 tablet every 12 hours by oral route. 2024 active Not Available Not Available Not Avai lable valsartan 40 mg tablet active Medication Descriptio n: valsartan; refills:0 Not Available Not Available Not Available tadalafil 5 mg tablet Take 1 tablet every day by oral route. 2024 active Not Available Not Available Not Avai lable loratadine active Medicatio n Descriptio n: loratadine ; refills:0 Not Available Not Available Not Available aspirin active Medication Descriptio n: aspirin; refills:0 Not Available Not Available Not Available lansoprazo le active Medication Descriptio n: lansoprazo le; refills:0 Not Available Not Available Not Available oxybutynin active Not Available Not Av ailable Not Available tadalafil active Not Available Not Erika ilable Not Available loratadine 10 mg capsule Take by oral route. active Not Available Not Available No t Available Vitals Date Recorded Body height Body mass index (BMI) Body weight Provider Name and Address Organization Details Last Updated DateTime 06/29/2024 190.5 cm 31.2 kg/m2 160787.09 g Antonieta Kelly [facility] 06/29/2024 12:20:24 Date Recorded Body height Body mass index (BMI) Body weight Provider Name and Address Organization Details Last Updated DateTime 09/03/2024 190.5 cm 30 kg/m2 288424.17 g Deidre Lacey [facility] 09/03/2024 14:25:52 Social History Question Answer Notes LastModified by Organizat ion Details LastModified Time Tobacco Smoking Status Never Smoker Ysabel [facility] 06/29/2024 10:55:36 What Is Your Relationship Status? [email or web address] Information not available 06/29/2024 Sex: Unknown Functional Status Question Answer Note LastModified by Organizat ion Details LastModified Time How many times per week do you consume alcohol? Less than 1 time per week [email or web address] Information not available 06/29/2024 Do you or have you ever used any other forms of tobacco or nicotine? No [email or web address] Information not available 06/29/2024 What is your level of alcohol consumption? Occasional Information not available 06/29/2024 Are you currently employed? No [email or web address] Information not available 06/29/2024 Mental Status None recorded. Family History Relationship Description Onset Age of this Age Resolved Age Notes LastModified by Organization Details LastModified Time Brother Kidney stone [email or web address] Not av ailable 06/29/2024 10:55:36 Sister Kidney stone [email or web address] Not erika ilable 06/29/2024 10:55:36 Medical History Condition Response Erectile Dysfunction Y BPH Y Acid Reflux (GERD) Y Cancer Y Arthritis Y Seasonal Allergies Y Past Encounters Encounter ID Performer Location Encounter Start Date Encounter Closed Date Diagnosis/Indication Diagnosis SNOMED-CT Code Diagnosis ICD10 Code Diagnosis Note [id number] MD [facility] [address] [place] [address] 06/29/2024 10:47:53 06/29/2024 12:49:24 Benign prostatic hyperplasia with outflow obstruction 826125948 N40.1 Primary er ectile dysfunction 680454767 N52.9 We will readdress this at follow-up in 4 to 6 weeks Acute urin deyvi tract infection 863230621 N39.0 [id number] MD CAS[facility]DRA [facility] [address] [place] [address] 09/03/2024 14:01:49 09/03/2024 15:23:03 Benign prostatic hyperplasia with outflow obstruction 943044452 N40.1 N13.8 Follow-up 6 months, he will decrease his tamsulosin to once per day Primary er ectile dysfunction 425367397 N52.9 As above Health Concerns Section Related Observation LastModified by Organization Detai ls LastModified Time None Recorded Concern Status LastModified by Organization Details LastModified Time None Recorded Advance Directives Directive None Recorded Payers Insurance Date Sequence Insurance Name Policy Number Policy Serna Covered Member ID Serna Member ID Guarantor Name 09/09/2024 2 [employer] Lawrence Walsh [id number] Lawrence Walsh 08/31/2024 1 [place] Lawrence Walsh [id number] Lawrence Gillilandkatey Notes Date Note Type Note Provider Name and Address Organization Details Recorded Time 06/29/2024 text/html Patient was seen by me years ago and Greg for obstructive symptoms. Since that time he has recently seen Dr. Eaton there. He last saw him in February and April for urinary obstruction. In February on exam total felt as though he might have a prostate nodule. His PSA at that time was 3.6. Nothing was done regarding that. At follow-up in April he had a repeat PSA of 1.[address] Eaton suggested that he have an MRI. In the interim his obstructive symptoms seems to become more bothersome. He takes tamsulosin once per day and tadalafil 5 mg daily. He still has some issues with erectile dysfunction with poor rigidity. We discussed consideration of the addition of sildenafil. We also discussed increasing his tamsulosin to twice daily to address his obstructive symptoms. His exam however does reveal that he has some slight asymmetry with his prostate but he has no true nodule or induration. The right side is more prominent. Considering the decline in PSA I suggest we follow his PSA for now. His urine today is nitrite positive but only trace leukocytes. He has no dysuria. He does have complaints of urinary frequency with mild urgency however this has been present for several months or years. KRISTOPHER MOSLEY MD [facility] [place], [address], [facility] 06/29/2024 15:48:21 09/03/2024 text/html Patient is here in follow-up of obstructive urination symptoms. In April his PSA was 1.2. In June he was taking tamsulosin once per day as well as tadalafil 5 mg daily but still had bothersome obstructive symptoms. After discussion we increased his tamsulosin to twice per day. He has noticed no significant improvement and inquired about decreasing it back to once per day. His symptoms at this point did not bother him significantly to proceed with any intervention. He typically has nocturia x 2. We discussed that for further intervention of obstructive symptoms we probably should consider medical cystoscopy to assess treatment options. He also mentions some difficulty with rigidity. We discussed the addition of sildenafil to his tadalafil intermittently or even consider injection therapy. At this point he will observe. KRISTOPHER MOSLEY MD [address] [place] [address], [phone], [facility] 09/08/2024 07:39:56
--- OUTSIDE RECORDS SUMMARY | 2024-10-03 15:39 | XMS_ITS | Patient Health Record ---
Author Organization [facility] Address [address] [place] [id number] Care Team Providers Care Automotive Professional Name Role Phone Mani Ap Cope Primary Care Provider Beverley Franz Unavailable [phone] Reena Spears Unavailable [phone] Allergies Allergen (clinical drug ingredient) Drug/Non Drug Allergy documented on EMR Reaction Allergy Type Onset Date Status erythromycin Erythromycin Unknown Drug Allergy A ctive atorvastatin Atorvastatin Unknown Drug Allergy A ctive Results Component Value Reference Range Notes P-Comprehensive Metabolic Pa caleb (CMP) Reviewed date:06/06/2024 04:33:36 PM Interpretation:Normal Performing Lab: Notes/Report: Test performed by [facility], [address] , [address], [place] [address] Delmar Jaramillo MD, Rn Supplemental CLIA: [id number] Sodium 140 135-145 mmol/L Potassium 4.3 3.5-5.3 [...] 0.8 <0.2-1.2 mg/dL A/G Ratio 1.8 1.1-2.5 CBC Fingerstick (in house) Reviewed date:10/02/2024 07:19:47 [...] - 38 plat 171 100 - 400 CXR Reviewed date:06/05/2024 02:27:19 PM Interpretation:Negative Performing Lab: Notes/Report: Negative CBC Fingerstick (in house) Reviewed date:05/15/2024 07:36:10 [...] - 38 plat 129 100 - 400 Physical Therapy Reviewed date:12/07/2023 10:27:02 AM Interpretation: Performing Lab: Notes/Report: P-Acetylcholine Receptor Bin ding Antibody Reviewed date:12/12/2023 03:39:27 PM Interpretation:Normal Performing Lab: Notes/Report: Acetylcholine Receptor Binding Antibody 0.0 0.0-0.4 nmol/L INTERPRETIVE INFORMATION: Acetylcholine Binding Ab Negative ....... 0.0 - 0.4 nmol/L Positive ....... 0.5 nmol/L or greater Approximately 85-90 percent of patients with myasthenia gravis (MG) express antibodies to the acetylcholine receptor (AChR), which can be divided into binding, blocking, and modulating antibodies. Binding antibody can activate complement and lead to loss of AChR. Blocking antibody may impair binding of acetylcholine to the receptor, leading to poor muscle contraction. Modulating antibody causes receptor endocytosis resulting in loss of AChR expression, which correlates most closely with clinical severity of disease. Approximately 10-15 percent of individuals with confirmed myasthenia gravis have no measurable binding, blocking, or modulating antibodies. This test was developed and its performance characteristics determined by [facility]. It has not been cleared or approved by the [place] Food and Drug Administration. This test was performed in a CLIA certified laboratory and is intended for clinical purposes. Performed By: [facility] [address] [place] [id number] Rn Supplemental: Jaguar Mosley MD, PhD CLIA Number: [id number] P-Uric Acid Reviewed date:12/12/2023 03:39:27 PM Interpretation:Normal Performing Lab: Notes/Report: Test performed by [facility] [address] [place] [address] , [facility] [place] [address] Delmar Jaramillo MD, Rn Supplemental CLIA: [id number] Uric Acid 6.0 3.4-8.0 mg/dL P-Sed Rate (ESR) Reviewed date:12/12/2023 03:39:27 PM Interpretation:Normal Performing Lab: Notes/Report: Test performed by [facility] [address] [place] [address] , [place] [address] Delmar Jaramillo MD, Rn Supplemental CLIA: [id number] Erythrocyte Sedimentation Rate (ESR), Automated 5 <21 mm/hr P-CPK Reviewed date:12/12/2023 03:39:27 PM Interpretation:Normal Performing Lab: Notes/Report: Test performed by [facility] [address] [place] [address] , [place] [address] Delmar Jaramillo MD, Rn Supplemental CLIA: [id number] Creatine Kinase 110 20-200 U/L Glycohemoglobin A1c (in hous e) Reviewed date:06/05/2024 02:27:41 PM Interpretation:5.2 Performing Lab: Notes/Report: 5.2 glycohemoglobin 5.2% 5 - 6.5 % P-Lipid Panel Reviewed date:06/05/2024 02:28:07 PM Interpretation:LDL 141;HDL 47;TG 109 Performing Lab: Notes/Report: Test performed by [facility] [address] [place] [address] , [address], [place] [address] Delmar Jaramillo MD, Rn Supplemental CLIA: [id number] Cholesterol 210 <200 mg/dL Triglycerides 109 <150 [...] Results: 141 Units: mg/dL % Change: +11% Glycohemoglobin A1c (in hous e) Reviewed date:05/28/2024 02:42:12 PM Interpretation: Performing Lab: Notes/Report: X ray : Shoulder, left Reviewed date:03/14/2024 12:42:43 PM Interpretation:degenerative changes Performing Lab: Notes/Report: degenerative changes P-Culture, Urine Reviewed date:03/15/2024 12:27:00 PM Interpretation:No growth Performing Lab: Notes/Report: Test performed by [facility], [facility] [address] [place] [address] , [address], [place] [address] Delmar Jaramillo MD, Rn Supplemental CLIA: [id number] Specimen Source Urine - Void Culture, Urine See Below Final Report : No growth Urinalysis - Inhouse Reviewed date:03/13/2024 03:04:51 PM Interpretation: Performing Lab: Notes/Report: Color/Clarity yellow/clear Leuk trace Nitrite neg Urobili 1.6 Protein neg pH 7.0 Blood neg Sp. Gr. 1.015 Ketone neg Bili neg Gluc neg Influenza Screen (in house) Reviewed date:04/27/2024 12:17:29 [...] Interpretation:Negative Performing Lab: Notes/Report: Negative Result: neg Medications Medication SIG (Take, Route, Frequency, Duration) [...] a day; Duration: 30 days 10/03/2024 Active Irbesartan 150 MG 1 tab(s) orally [...] a day; Duration: 30 days 06/08/2024 Active Tamsulosin HCl 0.4 MG TAKE 1 CAPSULE BY MOUTH ONCE DAILY AT BEDTIME FOR 90 DAYS Active Sulindac 200 MG 1 tab(s) orally 2 times a day Active Aspirin 81 MG 1 tab(s) orally every other day Active Immunizations Vaccine Route Administration Date Status Comme nts COVID 19 Moderna IM Intramuscular 05/14/2020 Administered COVID 19 Moderna Unknown 06/13/2020 Administered COVID 19 Moderna Unknown 12/17/2020 Administered COVID 19 Moderna Unknown 10/19/2021 Administered Flublok IM Intramuscular 02/22/2018 Administered Fluzone High Dose (65yr and older) IM Intramuscular 02/01/2022 Pending Fluzone High Dose (65yr and older) IM Intramuscular 2023 Administered Fluzone High Dose (65yr and older) IM Intramuscular 12/20/2023 Administered Fluzone PF Quad (6-35 months) Unknown 01/08/2016 Administered Fluzone PF Quad (6-35 months) Unknown 12/28/2016 Administered Fluzone Quad (6months&older) IM Intramuscular 12/25/2018 Administered Fluzone Quad (6months&older) IM Intramuscular 02/25/2020 Administered Fluzone Quad (6months&older) IM Intramuscular 01/05/2021 Administered PNEUMOVAX 23 VACCINE IM Intramuscular 07/21/2016 Administe red Prevnar (PCV20) IM Intramuscular 07/21/2021 Administered Shingrix Unknown 03/11/2023 Administered Tetanus Tdap-Adacel (over 7yrs) IM Intramuscular 10/06/2017 Administered Problems Problem Type SNOMED Code ICD Code Onset Dates Problem Status W/U Status Risk Notes Problem Gastroesophageal reflux disease (102022109) GERD (gastroesophageal reflux disease) (K21.9) Active confirmed Problem Tear film insufficiency (40596384) Dry eyes, bilateral (H04.123) Active confirmed Problem Hyperglycemia (69159165) Hyperglycemia (R73.9) Active confirmed Problem Hypertension (62105388) HTN (hypertension) (I10) Active confirmed Problem Essential hypertension (06145242) Essential hypertension (I10) Active confirmed Problem Diverticulitis (28701773) Diverticulitis (K57.92) Active confirmed Problem Environmental allerg y (937909180) Environmental allergies (Z91.048) Active confirmed Problem Gastroesophageal reflux disease (339916314) Reflux (K21.9) Active confirmed Problem Mixed anxiety and depressive disorder (705357229) Depression with anxiety (F41.8) Active confirmed Problem Chronic pain (27475320) Other chronic pain (G89.29) Active confirmed Problem Conductive hearing loss, bilateral (571386505) Conductive hearing loss, bilateral (H90.0) Active confirmed Problem Tinnitus of left ear (8342621433462) Tinnitus, left ear (H93.12) Active confirmed Problem Diverticulitis of colon (513470544) Diverticulitis of large intestine without perforation or abscess without bleeding (K57.32) Active confirmed Problem Male erectile disorder (817540671) Male erectile disorder (N52.9) Active confirmed Problem Sciatica (56710679) Sciatica of right side (M54.31) Active confirmed Problem Gastroesophageal reflux disease without esophagitis (532225897) Gastroesophageal reflux disease without esophagitis (K21.9) Active confirmed Problem New daily persistent headache (332099503467345) New daily persistent headache (G44.52) Active confirmed Problem Carpal tunnel syndrome of right wrist (841086175955662) Carpal tunnel syndrome of right wrist (G56.01) Active confirmed Problem Osteoarthritis of knee (572365604) Primary osteoarthritis of both knees (M17.0) Active confirmed Problem Hemorrhoids without complication (28916536) Hemorrhoids, unspecified hemorrhoid type (K64.9) Active confirmed Problem Carpal tunnel syndrome of left wrist (628401111186456) Carpal tunnel syndrome of left wrist (G56.02) Active confirmed Problem Body mass index 30.0 0 to 34.99 (615312250137286) BMI 31.0-31.9,adult (Z68.31) Active confirmed Problem Pure hypercholesterolemia (911097793) Pure hypercholesterolemia (E78.00) Active confirmed Problem Benign prostatic hypertrophy without outflow obstruction (786237942) Benign prostatic hyperplasia without lower urinary tract symptoms (N40.0) Active confirmed Problem Prostate nodule (832607754625979) Prostate nodule (N40.2) Active confirmed Problem Tinnitus (56094273) Tinnitus, un specified laterality (H93.19) Active confirmed Problem Somatic dysfunction of right sacroiliac joint (finding) (84088895207402700) Sacroiliac joint dysfunction of right side (M53.3) Active confirmed Problem Personality change (465005073) Personality change (F68.8) Active confirmed Vital Signs Heart Rate 67 /min 10/03/2024 Blood pressure diastolic 86 mm Hg 10/03/2024 Height 75.50 in 10/03/2024 Blood pressure systolic 132 mm Hg 10/03/2024 Weight 247.8 lbs 10/03/2024 BMI 30.56 kg/m2 10/03/2024 Encounters Encounter Location Date [facility] [address] [place] [id number] 12/05/2023 Ap Singleton Ptosis, bilateral H0 2.403 ; Acute pain of left shoulder M25.512 and Seborrheic keratoses L82.1 [facility] [id number] 12/20/2023 Beverley Franz Dry eyes, bilateral H04.123 and Shoulder pain, left M25.512 [facility] [id number] 03/13/2024 Beverley Franz Left shoulder pain M25.512 ; Frequent urination R35.0 ; Eye irritation H57.89 and GERD (gastroesophageal reflux disease) K21.9 [facility] [id number] 04/27/2024 Ap Singleton Acute URI J06.9 and Acute cough R05.[address] [id number] 05/15/2024 Beverley Franz Adult general medical examination Z00.00 ; Cough R05.9 ; Reflux K21.9 ; Prostate nodule N40.2 ; Lipid screening Z13.220 ; HTN (hypertension) I10 ; Diverticulitis of large intestine without perforation or abscess without bleeding K57.32 ; Pure hypercholesterolemia E78.00 ; Other chronic pain G89.29 ; Primary osteoarthritis of both knees M17.0 ; Frequent urination R35.0 and BMI 31.0-31.9,adult Z68.31 [facility] [address] [place], [place] [id number] 05/18/2024 Beverley Franz Pure hypercholesterolemia E78.00 ; Hyperglycemia R73.9 and Essential hypertension I10 [facility] [address] [place], [place] [id number] 05/22/2024 Beverley Franz Hyperglycemia R73.9 [facility] [address] [id number] 06/05/2024 Beverley Franz Gastroesophageal reflux disease without esophagitis K21.9 ; Essential hypertension I10 and Pure hypercholesterolemia E78.00 [facility] [address], [place] [id number] 10/02/2024 Beverley Franz Gastroesophageal reflux disease without esophagitis K21.9 ; Environmental allergies Z91.048 ; Reflux K21.9 ; Acute diarrhea R19.7 and Lesion of skin of nose L98.9 [facility] [address] [id number] 10/03/2024 Reena Crowdy Diarrhea of presumed infectious origin R19.7 ; Injury of left hand, initial encounter S69.92XA ; Left orbit trauma, initial encounter S05.92XA and Muscle spasms of neck M62.838 [facility] [address] [place], [place] [id number] 11/04/2023 Ap Singleton [facility] [address] [place], [place] [id number] 06/05/2024 [facility] [address] [place], [place] [id number] 07/05/2024 Ap [facility] [address] [place], [place] [id number] 10/02/2024 Ap Singleton Assessments Encounter Date Diagnosis (ICD Code) Assessment Notes Treatment Notes Treatment Clinical Notes Section Notes 12/05/2023 Acute pain of left shoulder (ICD-10 - M25.512) 12/05/2023 Ptosis, bilateral (ICD-10 - H02.403) 12/20/2023 Dry eyes, bilateral (ICD-10 - H04.123) will schedule YAG procedure; will stop claritin due to drying effect of the eyes; continue with moisturing with the gel gtts; moist heat in AM fo assist with opening; encouraged to wear sunglasses whenever out; turn the fan OFF; increase water intake 12/20/2023 Shoulder pain, left (ICD-10 - M25.512) continue with exercises as per PT 03/13/2024 Left shoulder pain (ICD-10 - M25.512) discussed Tx plan; has a trip planned to [facility] and will be playing rounds of golf; will see what he wishes to do after ths; will xray today; he edgar consider ortho appt, additional PT; he will continue with the exercises; he has made tremendous progress with PT 03/13/2024 Frequent urination (ICD-10 - R35.0) discussed his frequency; UA appears neg; will wait on Culture results; he agrees to urology appt 04/27/2024 Acute URI (ICD-10 - J06.9) 04/27/2024 Acute cough (ICD-10 - R05.1) 05/15/2024 Adult general medica l examination (ICD-10 [...] the full feelingi in his throat throat/cough 05/18/2024 Hyperglycemia (ICD-1 0 - R73.9) 05/18/2024 Pure hypercholesterolemia (ICD-10 - E78.00) 05/22/2024 Hyperglycemia (ICD-1 0 - R73.9) 06/05/2024 Essential hypertensi on (ICD-10 - I10) 06/05/2024 Gastroesophageal ref lux disease without esophagitis (ICD-10 - K21.9) will try RX to see about cost; will also do without for [id number] to see if cough returns 10/02/2024 Environmental allerg ies (ICD-10 - Z91.048) to add OTC Flonase daily; has been taking claritin QOD and will take daily 10/02/2024 Gastroesophageal ref lux disease without esophagitis (ICD-10 - K21.9) will try RX to see about cost; will also do without for [id number] to see if cough returns 10/03/2024 Injury of left hand, initial encounter (ICD-10 - S69.92XA) 10/03/2024 Diarrhea of presumed infectious origin (ICD-10 - R19.7) 10/03/2024 Left orbit trauma, initial encounter (ICD-10 - S05.92XA) 10/02/2024 Reflux (ICD-10 - K21.9) will do GI consult 06/05/2024 Pure hypercholesterolemia (ICD-10 - E78.00) reviewed Lipids with LDL at 144; discussed low fat/cholesterol diet; he has several dietary changes that he will make; does not want to take a statin due to SE of joint pain; will recheck Lipids after 4 months with dietary changes 05/18/2024 Essential hypertensi on (ICD-10 - I10) 05/15/2024 Reflux (ICD-10 - K21.9) will do GI consult 03/13/2024 Eye irritation (ICD- 10 - H57.89) has been following with eye provider and DX with eyelash mites ( demodex mites); has started using RX cream 12/05/2023 Seborrheic keratoses (ICD-10 - L82.1) 03/13/2024 GERD (gastroesophage al reflux disease) (ICD-10 - K21.9) 05/15/2024 Prostate nodule (ICD -10 - N40.2) wants a second opinion with Dr. Vargas or Dr. Narvaez 10/02/2024 Acute diarrhea (ICD- 10 - R19.7) encouraged bland diet until diarrhea ceases 10/03/2024 Muscle spasms of nec k (ICD-10 - M62.838) 10/02/2024 Lesion of skin of no se (ICD-10 - L98.9) has derm appt 12/2024 ; reinforced use of sun screen; he does play alot of golf 05/15/2024 Lipid screening (ICD -10 - Z13.220) [...] will RTC for lab Plan Of Treatment Pending Test Test Name Order Date X ray : Hand, left 10/03/2024 X ray : Orbits, bilateral 10/03/2024 CBC Venipuncture (in house) 05/18/2024 X ray : Wrist, left 10/03/2024 P-Comprehensive Metabolic Panel (CMP) P-Magnesium 05/18/2024 TEN-stool panel 10/03/2024 Next Appt Details Provider Name:Reena cedillo, 10/03/2024 03:00:00 PM, [address], [address], [place], [id number], Provider Name:Beverley elena, 04/08/2025 10:00:00 AM, [address], [address], [place], [place], [id number], Insurance Providers Payer Name Payer Address Payer Phone Subscriber Number Group Number Insured Name Patient Relationship to Insured Coverage Start Date Coverage End Date MEDICARE PART B [address] [address] [place] [address] [id number] JEET MERLOS Self - patient is the insured [facility] [address] [place] [id number] JEET MERLOS Self - patient is the insured Medications Administered Medication Instructions Date of Administration Dosage Notes Dexamethasone 06/08/2005 1 mL Morphine 05/03/2013 Reported to [facility] ([facility]) History Medical History History ICD Code Hypertension Esophageal reflux Arthritis diverticulosis hemorrhoids Left rotator cuff tear, s/p surgical rep air BPH COVID 19 Surgical History Surgery Date(Month/Year) Pilonidal abcess cyst removal rotator cuff surgery on L shoulder, Dr. 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 Costello 07/17/2013 Colonoscopy, Dr. Khan 01/15/2020 Hospitalization History Reason Date(Month/Year) [facility] ER-right arm pain 09/16/18 Diverticulitis 12-17-09
--- OUTSIDE RECORDS SUMMARY | 2024-10-03 15:39 | XMS_ITS | Continuity of Care Document ---
Author Organization [facility] Brian mitchell [facility] Address [address] [address] [place] [address] Care Team Providers Care Solutions Architect Name Role Phone ANTHONY HORN Primary Care Provider Assessment No assessment recorded. Plan of Treatment Reminders Order Date Submit Date Provider Last Modified By Organization Details Last Modified Time Details Appointments RECHECK 2024 02:00P M KRISTOPHER MOSLEY MD Not available Not available Not available Lab urinalysi s panel, auto 2024 025 [email or web address] [facility], [address], [address], [place], [address], 09/08/2024 07:38:30 Referral None recorded. Procedures None recorded. Surgeries None recorded. Imaging None recorded. Medication Orders None recorded. Patient TargetsNo targets recorded. Patient InstructionsNo instructions recorded. Reason for Referral None Reported. Results Created Date Observation Date Name Description Value Unit Range Abnormal Flag Note LastModifiedBy Organization Detail LastModifiedTime 09/04/1909/03/2024 urina lysis panel , auto Unknown Analyte Clean Catch Not Available [facility] [address], [place], [address], 09/03/2024 14:25:00 09/04/19 25 09/03/2024 urina lysis panel , auto Unknown Analyte Yellow Not Available [facility] [address], [place], [address], 09/03/2024 14:25:00 09/04/19 25 09/03/2024 urina lysis panel , auto Unknown Analyte Clear Not Available [facility] [address], [place], [address], 09/03/2024 14:25:00 09/04/19 25 09/03/2024 urina lysis panel , auto Unknown Analyte 1.015 Not Available [facility] [address], [place], [address], 09/03/2024 14:25:00 09/04/19 25 09/03/2024 urina lysis panel , auto Unknown Analyte 1.003 - 1.030 Not Available [facility] [address], [place], [address], 09/03/2024 14:25:00 09/04/19 25 09/03/2024 urina lysis panel , auto Unknown Analyte 6.0 Not Available [facility] [address], [place], [address], 09/03/2024 14:25:00 09/04/19 25 09/03/2024 urina lysis panel , auto Unknown Analyte 5.0 - 8.0 Not Available [facility] [address], [place], [address], 09/03/2024 14:25:00 09/04/19 25 09/03/2024 urina lysis panel , auto Unknown Analyte Negati ve Not Available [facility] [address], [place], [address], 09/03/2024 14:25:00 09/04/19 25 09/03/2024 urina lysis panel , auto Unknown Analyte Negati ve Not Available [facility] [address], [place], [address], 09/03/2024 14:25:00 09/04/19 25 09/03/2024 urina lysis panel , auto Unknown Analyte Negati ve Not Available [facility] [address], [place], [address], 09/03/2024 14:25:00 09/04/19 25 09/03/2024 urina lysis panel , auto Unknown Analyte Negati ve Not Available [facility] [address], [place], [address], 09/03/2024 14:25:00 09/04/19 25 09/03/2024 urina lysis panel , auto Unknown Analyte Negati ve Not Available [facility] [address], [place], [address], 09/03/2024 14:25:00 09/04/19 25 09/03/2024 urina lysis panel , auto Unknown Analyte Negati ve Not Available [facility] [address], [place], [address], 09/03/2024 14:25:00 09/04/19 25 09/03/2024 urina lysis panel , auto Unknown Analyte Normal Not Available [facility] [address], [place], [address], 09/03/2024 14:25:00 09/04/19 25 09/03/2024 urina lysis panel , auto Unknown Analyte Normal Not Available [facility] [address], [place], [address], 09/03/2024 14:25:00 09/04/19 25 09/03/2024 urina lysis panel , auto Unknown Analyte Negati ve Not Available [facility] [address], [place], [address], 09/03/2024 14:25:00 09/04/19 25 09/03/2024 urina lysis panel , auto Unknown Analyte Negati ve Not Available [facility] [address], [place], [address], 09/03/2024 14:25:00 09/04/19 25 09/03/2024 urina lysis panel , auto Unknown Analyte Normal Not Available [facility] [address], [place], [address], 09/03/2024 14:25:00 09/04/19 25 09/03/2024 urina lysis panel , auto Unknown Analyte Normal Not Available [facility] [address], [place], [address], 09/03/2024 14:25:00 09/04/19 25 09/03/2024 urina lysis panel , auto Unknown Analyte Negati ve Not Available [facility] [address], [place], [address], 09/03/2024 14:25:00 09/04/19 25 09/03/2024 urina lysis panel , auto Unknown Analyte Negati ve Not Available [facility] [address], [place], [address], 09/03/2024 14:25:00 09/04/19 25 09/03/2024 urina lysis panel , auto Unknown Analyte 50 Carlos Manuel/uL Not Available [facility] [address] [facility] [address], [place], [address], 09/03/2024 14:25:00 09/04/19 25 09/03/2024 urina lysis panel , auto Unknown Analyte Negati ve Not Available [facility] [address] [facility] [address], [place], [address], 09/03/2024 14:25:00 Result Notes None recorded. Problems No Known Problems Procedures Surgical History Date Name Laterality Status Provider Name and Address Organization Details Recorded Time procedure on shoulder completed Antonieta Robin [facility] 06/29/2024 12:21:53 Imaging Results None recorded. Procedure Notes None recorded. Medical Equipment None Reported. Allergies Allergen ID Allergen Name Allergen Category Reaction Reaction Severity Criticality Documentation Date Start Date Code Code System Note Provider Name and Address Organization Details Recorded Time 486853 E-Mycin medicatio n Not available Not available Not available 02/20/20162014 8 RxNorm Comme nt: Olegario ed By: Aubree schrader Date: 2014 9:49: 34 AM; Not Available [facility] 6 08:11:38 Medications Name Sig Start Date [...] Updated DateTime 09/03/2024 190.5 cm 30 kg/m2 052420.17 g Deidre Lacey [facility] 09/03/2024 14:25:52 Social History Question Answer Notes LastModified by [facility] Details LastModified Time Tobacco Smoking Status [facility]/29[facility]2024 10:55:36 What Is Your Relationship Status? [email or web address] Information not available 06/29/2024 Sex: Unknown Functional Status Question Answer Note LastModified by [facility] Details LastModified Time How many times per week do you consume alcohol? Less than 1 time per week [email or web address] Information not available 06/29/2024 Do you or have you ever used any other forms of tobacco or nicotine? No [email or web address] Information not available 06/29/2024 What is your level of alcohol consumption? Occasional [email or web address] Information not available 06/29/2024 Are you currently employed? No [email or web address] Information not available 06/29/2024 Mental Status None recorded. Family History Relationship Description Onset Age of this Age Resolved Age Notes LastModified by Organization Details LastModified Time Brother Kidney stone [email or web address] Not av ailable 06/29/2024 10:55:36 Sister Kidney stone [email or web address] Not erika ilable 06/29/2024 10:55:36 Medical History Condition Response Erectile Dysfunction Y Seasonal Allergies Y Arthritis Y Acid Reflux (GERD) Y Cancer Y BPH Y Past Encounters Encounter ID Performer Location Encounter Start Date Encounter Closed Date Diagnosis/Indication Diagnosis SNOMED-CT Code Diagnosis ICD10 Code Diagnosis Note [id number] KRISTOPHER MOSLEY MD [facility] [address] [place] [address] 09/03/2024 14:01:49 09/03/2024 15:23:03 Benign prostatic hyperplasia with outflow obstruction 880276960 N40.1 N13.8 Follow-up 6 months, he will decrease his tamsulosin to once per day Primary er ectile dysfunction 727153864 N52.9 As above Health Concerns Section Related Observation LastModified by Organization Detai ls LastModified Time None Recorded Concern Status LastModified by Organization Details LastModified Time None Recorded Payers Encounter Date Sequence Insurance Name Policy Number Policy Serna Covered Member ID Serna Member ID Guarantor Name 09/03/2024 1 [place]ARE[place] Lawrence Walsh [id number] Lawrence Walsh 09/03/2024 2 [facility] Lawrence Walsh [id number] Lawrence Walsh Notes Date Note Type Note Provider Name and Address Organization Details Recorded Time 09/03/2024 text/html Patient is here in follow-up [...] point he will observe. KRISTOPHER MOSLEY MD [address], [place], [address], [facility] 09/08/2024 07:39:56
--- NOTE | 2024-10-03 15:40 | XR_ITS ---
PROCEDURE INFORMATION: Exam: XR Left Wrist Exam date and time: 10/03/2024 3:50 PM Age: 69 years old Clinical indication: Injury or trauma; Fall; Blunt trauma (contusions or hematomas); Wrist; Left; Additional info: Fall yesterday playing pickleball TECHNIQUE: Imaging protocol: Radiologic exam of the left wrist. Views: 3 or more views. COMPARISON: CR XR WRIST LT MIN 3V 10/03/2024 3:50 PM FINDINGS: Bones/joints: No acute fracture or dislocation. Joint spaces are preserved. Normal bone mineralization. Normal carpal bone alignment. Radiocarpal joint is preserved. Soft tissues: No soft tissue swelling or radiopaque foreign body. IMPRESSION: No acute findings.
--- NOTE | 2024-10-03 15:40 | XR_ITS ---
PROCEDURE INFORMATION: Exam: XR Orbits Exam date and time: 10/03/2024 3:50 PM Age: 69 years old Clinical indication: Injury or trauma; Fall; Blunt trauma (contusions or hematomas); Orbit/periorbital; Left; Additional info: Injury of left hand, left orbit trauma. Fall yesterday playing pickleball TECHNIQUE: Imaging protocol: XR of the orbits. Views: Minimum of 4 views COMPARISON: CT HEAD/BRAIN WO CON 11/28/2020 3:08 PM FINDINGS: Paranasal sinuses: Well aerated. Bones/joints: No fracture. Soft tissues: Unremarkable. IMPRESSION: No acute findings.
--- NOTE | 2024-10-03 15:40 | XR_ITS ---
PROCEDURE INFORMATION: Exam: XR Left Hand Exam date and time: 10/03/2024 3:50 PM Age: 69 years old Clinical indication: Injury or trauma; Fall; Blunt trauma (contusions or hematomas); Hand; Left; Additional info: Fall yesterday playing pickleball TECHNIQUE: Imaging protocol: Radiologic exam of the left hand. Views: 3 or more views. COMPARISON: CR XR WRIST LT MIN 3V 10/03/2024 3:50 PM FINDINGS: Bones/joints: No acute fracture or dislocation. Narrowed IP joints. Normal bone mineralization. Radiocarpal joint and carpal bones are unremarkable. Soft tissues: Normal. IMPRESSION: No acute findings.
== END 2024-10-03 23:59 | disposition home or self-care (01) ==
LOC: RAD 15:35
PROVIDERS: PCP Family Medicine; Visit Provider Physician Assistant
DX: S69.92XA Unspecified injury of left wrist, hand and finger(s), initial encounter (principal); S05.92XA Unspecified injury of left eye and orbit, initial encounter
CPT/HCPCS: 70200; 73110; 73130

== ENCOUNTER 2024-10-15 06:33 | Day surgery (SDC) | payer MEDICARE, SELFPAY ==
[2024-10-12 16:00] VITALS: BMI 29.9
[2024-10-15 07:02] VITALS: BP 133/74; PULSE 66; RESP 18; TEMP 36.4; O2SAT 98; BMI 29.3
[2024-10-15] MEDS: LACTATED RINGERS 1000ML 1,000 ML 50 ML IV (07:14)
--- NOTE | 2024-10-15 07:22 | EXP.HP ---
History of Present Illness *Admission Date: 10/15/24 *Reason for visit:: GERD/dysphagia and screening *History of present illness: Mr. Walsh is a 69-year-old gentleman who is here for diagnostic EGD secondary to heartburn, reflux and dysphagia and for screening colonoscopy (paternal grandfather with colon cancer). The examination is deemed medically necessary for EGD and screening colonoscopy. The patient has been seen, interviewed and examined prior to the procedure by both myself and the anesthesia provider. [facility] Disclaimer: The information contained in this section may have been updated after the patient was seen, as this information can be updated by other users. Medical History Torn rotator cuff Surgical History History of colonoscopy Family History Grandfather Cancer Father Diabetes Hypertension Stroke Mother Hypertension Stroke Social History (Updated 10/15/24 @ 07:00 by Sammi Moe RN) Smoking Status: Never smoker alcohol intake: never substance use type: other current occupational status: retired Travel in the last 8 weeks?: None household members: spouse housing: house caffeine: No Have you lived/traveled outside US in past 30 days?: No Contact w/someone who lives/traveled outside US past 30 days?: No Exposure to someone with infectious disease in past 14 days?: No Do you have a fever (greater than 100.4 F or 38 C)?: No Have you tested positive for COVID-19?: No Exposed to someone with COVID-19 in past 14 days?: No Do you have a sore throat?: No Do you have a cough?: No Do you have any weakness?: No Do you have any diarrhea?: No Are you experiencing any unusual bleeding?: No Do you have any muscle aches/pain?: No Do you have any abdominal pain?: No Are you experiencing loss of taste or smell?: No Other Medical History Have you received the Flu Vaccine for this season: Yes Have you received the Pneumonia Vaccine: Yes Review of Systems Review of Systems Review of systems (narrative): Negative *Cardiovascular Comments: Negative *Gastrointestinal Comments: Negative *Genitourinary Comments: Negative *Musculoskeletal Comments: Negative *Neurologic Comments: Negative Meds Home Medications and Allergies Home Medications ?Medication ?Instructions ?Recorded ?Confirmed ?Type irbesartan 150 mg tablet 150 mg PO DAILY . 09/16/18 10/15/24 History lansoprazole 30 mg capsule,delayed 30 mg PO DAILY . 09/16/18 10/15/24 History release loratadine 10 mg tablet 10 mg PO DAILY allergies 09/16/18 10/15/24 History sulindac 200 mg tablet 200 mg PO BID Arthritis 04/10/19 10/15/24 History omeprazole 40 mg capsule,delayed 40 mg PO DAILY 03/26/24 10/15/24 History release oxybutynin chloride 10 mg 10 mg PO DAILY 90 days #90 tabs 05/14/24 10/15/24 Rx tablet,extended release 24 hr tamsulosin 0.4 mg capsule (Flomax) 0.4 mg PO DAILY 90 days #90 caps 05/14/24 10/15/24 Rx aspirin 81 mg tablet,delayed 81 mg PO DAILY heart health 06/26/24 10/15/24 History release New Prescriptions to Start Prescriptions: Allergies Allergy/AdvReac Type Severity Reaction Status Date / Time erythromycin base Allergy Unknown Rash Verified 10/15/24 06:58 (ERYTHROMYCIN BASE) Exam Data for Last 24 hours Vital signs and Labs for Last 24 Hours: Temp Pulse Resp BP Pulse Ox O2 Del Method 97.5 F L 66 18 133/74 98 Room Air 10/15/24 07:02 10/15/24 07:02 10/15/24 07:02 10/15/24 07:02 10/15/24 07:02 10/15/24 07:02 I & O for Last 24 hours: Intake & Output 10/12/24 10/13/24 10/14/24 10/15/24 23:59 23:59 23:59 23:59 Weight 240 lb 235 lb *Routine HEENT Exam Head: Present normocephalic Eye: Present EOMI and PERRL ENT: Present mucous membranes moist *Routine Neck Exam Neck: Present supple *Routine Respiratory Exam Respiratory: Present CTA bilaterally *Routine Cardiovascular Exam Cardiovascular: Present RRR *Routine Abdominal Exam Abdominal: Present soft and normoactive bowel sounds; Absent tenderness *Routine Rectal Exam Rectal:: deferred *Routine Genitalia Exam Genitalia:: deferred *Routine Extremities Exam Extremities: Absent cyanosis, clubbing or edema *Routine Skin Exam Skin: Present warm; Absent rash *Routine Neurological Exam Neurological: Present alert and oriented X3 Assessment and Plan *Assessment and plan (1) Dysphagia: Status: Acute Category: Medical Code(s): R13.10 - Dysphagia, unspecified (2) Chronic GERD: Status: Acute Category: Medical Code(s): K21.9 - Gastro-esophageal reflux disease without esophagitis (3) Heartburn: Status: Acute Category: Medical Code(s): R12 - Heartburn (4) Screening for malignant neoplasm of colon: Status: Acute Category: Medical Code(s): Z12.11 - Encounter for screening for malignant neoplasm of colon Plan A/P: 1. Dysphagia/GERD and heartburn for upper endoscopy and screening for colonoscopy is the preprocedural diagnosis. The patient will be anesthetized/sedated using MAC sedation. The patient has been seen and examined. Cardiac and lung assessment prior to the examination is stable. Proceed with planned EGD and colonoscopy.
--- NOTE | 2024-10-15 07:25 | P.PCN_ITS ---
[facility] Procedure Note Date: 10/15/24 Time: 07:41 Procedure Note:: Upper Endoscopy Procedure Report: Esophagogastroduodenoscopy with cold biopsies and TTS balloon dilation Endoscopost: Siddharth Naranjo II, MD Referring Physician: Anatoliy Singleton MD Date of Procedure: October 15, 2024 Equipment: Olympus GIF 190 standard upper endoscope Sedation: MAC sedation Indications: Mr. Walsh is a 69-year-old gentleman who is here for diagnostic/therapeutic upper endoscopy secondary to chronic heartburn, reflux and dysphagia. He has had the dysphagia to solids for the last 6 to 9 months and will sometimes have to regurgitate food. He has been on PPI therapy and has been on Nexium for well over a year. He has tried Tums and Pepto-Bismol over the years. He had been on lansoprazole but was still getting breakthrough heartburn and reflux. He had been given samples of Voquezna with great symptom relief but his insurance required that he failed esomeprazole. He does get a little bloating, belching and gassiness. Procedure: Prior to the procedure, a history and physical exam was performed, and patient's medications and allergies were reviewed. The risks, benefits and alternatives of the sedation and procedure were discussed with the patient. All questions were answered and informed consent was obtained. The patient was brought to the procedure room. Patient identification and proposed procedure were verified by the physician and the nurse. The patient was placed in a left lateral decubitus position and the scope was passed under direct vision. Throughout the procedure, the patient's blood pressure, pulse, and oxygen saturations were monitored continuously. The upper GI endoscopy was accomplished without difficulty. The patient tolerated the procedure well. Findings: The scope was passed directly into the upper esophagus and advanced to the fourth portion of duodenum and proximal jejunum. A cold biopsy was taken from the proximal jejunum for the disaccharidase assay. The proximal jejunum, post bulbar duodenum, ampulla and duodenal bulb were normal with normal mucosa and conniventes. The scope was withdrawn through a normal duodenal bulb and pylorus into the stomach. There was mild linear reactive gastropathy of the antrum. There are a few scattered fundic gland polyps in the body and fundus. Upon retroflexion there was no hiatal hernia. Cold biopsies were taken from the antrum. The scope was then withdrawn into the esophagus. There was no evidence of reflux esophagitis or Syed's. There was no Schatzki's ring, furrowing, corrugation or strictures. There were strong tertiary contractions and evidence of moderate esophageal dysmotility. The entire esophagus was dilated to 60 Tanzanian/20 mm with a TTS hydrostatic balloon. There was some resistance at the cricopharyngeus. The remainder of the esophageal mucosa was normal. Impression: 1. Cricopharyngeal spasm status post dilation to 20 mm 2. Nonerosive GERD with moderate esophageal dysmotility 3. Mild linear reactive gastropathy of antrum 4. A few scattered gastric fundic gland polyps Plan: I will follow-up the biopsies and discuss the findings with the patient and family. I will proceed with screening colonoscopy.
--- NOTE | 2024-10-15 07:35 | P.PNANES_ITS ---
[facility] Disclaimer: The information contained in this section may have been updated after the patient was seen, as this information can be updated by other users. Medical History Torn rotator cuff Surgical History History of colonoscopy Family History Grandfather Cancer Father Diabetes Hypertension Stroke Mother Hypertension Stroke Social History (Updated 10/15/24 @ 07:00 by Sammi Moe RN) Smoking Status: Never smoker alcohol intake: never substance use type: other current occupational status: retired Travel in the last 8 weeks?: None household members: spouse housing: house caffeine: No Have you lived/traveled outside US in past 30 days?: No Contact w/someone who lives/traveled outside US past 30 days?: No Exposure to someone with infectious disease in past 14 days?: No Do you have a fever (greater than 100.4 F or 38 C)?: No Have you tested positive for COVID-19?: No Exposed to someone with COVID-19 in past 14 days?: No Do you have a sore throat?: No Do you have a cough?: No Do you have any weakness?: No Do you have any diarrhea?: No Are you experiencing any unusual bleeding?: No Do you have any muscle aches/pain?: No Do you have any abdominal pain?: No Are you experiencing loss of taste or smell?: No [facility] Anesthesia Checklist Patient Identification Patient Identification: Arm Band Structural Data Admitted From: Home Planned Operative Procedure/s: Colonoscopy Consent for Planned Operative Procedure(s) Verified: Yes Verified Documents: Surgical Consent and History and Physical NPO Status Verified Time NPO: 00:00 Additional verifications Anesthesia Reactions: No Hx Blood Transfusions: No Blood Transfusion Reaction: No Airway Assessment Mallampati Score:: Class II C-Spine Mobility Assessed: Yes TMJ Mobility Assessed: Yes Dentition: Good Dentition Neurological Assessment Level of Consciousness: Awake, Alert and Appropriate Anesthesia Plan Anesthesia Risk discussed: Yes Anesthesia Plan: Verified ASA Class: II Anesthesia Type: MAC
--- NOTE | 2024-10-15 07:41 | P.PCN_ITS ---
[facility] Procedure Note Date: 10/15/24 Time: 07:57 Procedure Note:: Colonoscopy Procedure Report: Colonoscopy Endoscopist: Siddharth Naranjo II, MD Referring physician: Anatoliy Singleton MD Date of Procedure: October 15, 2024 Equipment: Olympus 190 variable stiffness pediatric colonoscope Sedation: MAC sedation Indication: Mr. Wlash is a 69-year-old gentleman who is here for screening colonoscopy. His paternal grandfather had colon cancer in his 60s. The patient does have a prior history of sigmoid diverticulitis. He had been seen by colorectal surgery (Dr. Antoni Khan) who had recommended surgery 6 or 7 years ago. The patient's last colonoscopy was in February 2019 (Dr. Yovanny Costello) who found resolving diverticulitis. The patient has not had a diverticulitis attack in for 5 years. He reports no rectal bleeding, abdominal pain or weight loss. He does have some chronic constipation. Procedure: Prior to the procedure, a history and physical exam was performed, and patient's medications and allergies were reviewed. The risks, benefits and alternatives of the sedation and procedure were discussed with the patient. All questions were answered and informed consent was obtained. The patient was brought to the procedure room. Patient identification and proposed procedure were verified by the physician and the nurse. The patient was placed in a left lateral decubitus position and the scope was passed under direct vision. Throughout the procedure, the patient's blood pressure, pulse, and oxygen saturations were monitored continuously. The colonoscopy was accomplished without difficulty. The patient tolerated the procedure well. Findings: On digital rectal examination there was normal rectal tone. There were no external hemorrhoids. The prostate was 2+, mildly firm but symmetric without nodules. The colonoscope was introduced through the anal canal to the rectum and advanced to the cecum. The ileocecal valve and appendiceal orifice were identified. The scope was advanced a short distance into the ileum which appeared grossly normal. The scope was then withdrawn into the colon. The cecum, ascending and transverse colon and mucosa were grossly normal. There were scattered diverticuli throughout the descending and sigmoid colon (LEFT colon). The rectum itself was normal. Upon retroflexion within the rectum there were grade 1-2 internal hemorrhoids. The preparation was excellent throughout with [place] Preparation Score of 9. The cecal time was 12 minutes. Impression: 1. Left-sided diverticulosis 2. Grade 1-2 internal hemorrhoids Plan: I would encourage a fiber bowel regimen on a long-term daily maintenance basis. He will not require surveillance colonoscopy again for 10 years.
[2024-10-15 07:58] VITALS: BP 100/63; PULSE 70; RESP 20; TEMP 36.1; O2SAT 95
[2024-10-15 08:08] VITALS: BP 104/69; PULSE 69; RESP 20; O2SAT 96
[2024-10-15 08:18] VITALS: BP 106/69; PULSE 65; RESP 20; O2SAT 98
[2024-10-15 08:28] VITALS: BP 111/80; PULSE 69; RESP 20; TEMP 36.1; O2SAT 99
== END 2024-10-15 08:31 | disposition home or self-care (01) ==
PROVIDERS: PCP Family Medicine; Visit Provider Internal Medicine Gastroenterology
PROC: 0DJ08ZZ Inspection of Upper Intestinal Tract, Via Natural or Artificial Opening Endoscopic (ICD-10-PCS; CPT 45378; principal; 2024-10-15 08:00)
DX: Z12.11 Encounter for screening for malignant neoplasm of colon (principal); K57.30 Diverticulosis of large intestine without perforation or abscess without bleeding; K64.0 First degree hemorrhoids; K64.1 Second degree hemorrhoids; K21.9 Gastro-esophageal reflux disease without esophagitis; K31.9 Disease of stomach and duodenum, unspecified; K31.7 Polyp of stomach and duodenum; Z88.1 Allergy status to other antibiotic agents; Z79.82 Long term (current) use of aspirin; Z79.899 Other long term (current) drug therapy
CPT/HCPCS: 43239; 43249; 45378; 82657; C1726; J2003; J2704; J7120

== ENCOUNTER 2025-03-22 14:09 | Emergency (ER) | payer MEDICARE, SELFPAY ==
--- OUTSIDE RECORDS SUMMARY | 2024-04-27 05:15 | XMS_ITS ---
Author Organization [facility] Address [address] [place] [id number] Care Team Providers Care Tax Services Professional Name Role Phone Ap Singleton Primary Care Provider Allergies Allergen (clinical drug ingredient) Drug/Non Drug Allergy documented on EMR Reaction Allergy Type Onset Date Status erythromycin Erythromycin Unknown Drug Allergy A ctive atorvastatin Atorvastatin Unknown Drug Allergy A ctive Results Component Value Reference Range Notes Influenza Screen (in house) Reviewed date:04/27/2024 12:17:29 PM Interpretation:Negative Performing Lab: Notes/Report: Negative results neg CBC Fingerstick (in house) Reviewed date:04/27/2024 12:24:38 PM Interpretation: Performing Lab: Notes/Report: wbc 7.2 3.5 - 10 lym 18.9 15 - 50 mid 6.1 2 - 15 gran 75.0 35 - 80 rbc 4.51 3.5 - 5.5 hgb 13.8 11.5 - 16.5 hct 40.4 35 - 55 mcv 89.6 75 - 100 mch 30.6 25 - 35 mchc 34.1 31 - 38 plat 198 100 - 400 Covid test (in house) Reviewed date:05/02/2024 08:03:43 AM Interpretation:Negative Performing Lab: Notes/Report: Negative Result: neg REASON FOR VISIT poss sinus Medications Medication SIG (Take, Route, Frequency, Duration) Notes Start Date End Date Status Irbesartan 150 MG 1 tab(s) orally once a day; Duration: 90 days Active Sulindac 200 MG 1 tab(s) orally 2 ti mes a day Active Omeprazole 40 MG take 1 capsule by [facility] once daily 30 minutes before morning meal Orally Once a day; Duration: 90 days Active Tamsulosin HCl 0.4 MG TAKE 1 CAPSULE BY MOUTH ONCE DAILY AT BEDTIME FOR 90 DAYS; Duration: 90 Active Loratadine 10 MG 1 tab(s) orally once a day otc Not-Taking Benzonatate 200 MG 1 capsule as needed Orally three times a day as needed 04/27/2024 Active oxyBUTYnin Chloride ER 10 MG 1 tablet Orally Once a day; Duration: 30 day(s) Active Aspirin 81 MG 1 tab(s) orally ever y other day Active Lidocaine-Hydrocortisone Chester 3-2.5 % apply rectally 2 times a day 01/05/2021 Active HYDROcodone Bit-Homatrop MBr 5-1.5 MG/5ML 5 ml as needed Orally four times a day as needed 04/27/2024 Active Vital Signs Weight 242.4 lbs 04/27/2024 Blood pressure systolic 98 mm Hg 04/27/19 25 Blood pressure diastolic 70 mm Hg 025 Heart Rate 79 /min 04/27/2024 Height 75.50 in 04/27/2024 BMI 29.89 kg/m2 04/27/2024 Encounters Encounter Location Date Provider Diagnosis [facility] [address] [place], [place] [id number] 04/27/2024 Ap Singleton Acute URI J06.9 and Acute cough R05.1 Assessments Encounter Date Diagnosis (ICD Code) Assessment Notes Treatment Notes Treatment Clinical Notes Section Notes 04/27/2024 Acute URI (ICD-10 - J06.9) 04/27/2024 Acute cough (ICD-10 - R05.1) Plan Of Treatment Medication Medication Name Sig Start Date Stop Date Notes Benzonatate 200 MG 1 capsule as needed Orally three times a day as needed 04/27/2024 HYDROcodone Bit-Homatrop MBr 5-1.5 MG/5ML 5 ml as needed Orally four times a day as needed 04/27/2024 Next Appt Details Follow Up: as scheduled, Lexy son: Provider Name:Issa daigle, 03/22/2025 02:15:00 PM, [address], [address], [place], [id number], Provider Name:Beverley elena, 04/08/2025 10:00:00 AM, [address], [address], [place], [place], [id number], Progress Notes * Lawrence CARRDOB:07/1954 (70 yo M)Acc No.[id number]:04/27/2024 Progress Notes Patient: Lawrence EDWARDS Provider: Ap Singleton M.D. :1955 A ge:69 Y S ex:Male Date:04/27/2024 Address:[address], [place], [id number] Subjective: * Chief Complaints: * 1 . Poss sinus. * HPI: E NT/respiratory: 69 year old male presents with c/o cough P t presents today with c/o cough and nasal congestion for a couple of weeks. Pt sts that he has yellow sputum production. Pt sts that he has some post nasal drainage but not a lot. Pt sts that when he first got sick that he had a couple of days of fever and body aches but sts that has resolved and he mostly has a lingering cough with sinus congestion. c/o nasal congestion. c/o post nasal drainage. c/o chest congestion. Denies : Fever. D enies : headache. D enies : body aches. * ROS: D ERMATOLOGY: no R shahnaz. n o H tiara. G ASTROENTEROLOGY: no N ausea. n o V omiting. n o D iarrhea.? U ROLOGY: no D ifficulty urinating. n o B lood in urine. * Medical History: H ypertension, Esophageal reflux, Arthritis, Diverticulosis, Hemorrhoids, Left rotator cuff tear, s/p surgical repair, BPH, COVID 19. * Surgical History: P ilonidal abcess cyst removal , rotator cuff surgery on L shoulder, Dr. 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 Costello 07/17/2013, Colonoscopy, Dr. Khan 01/15/2020. * Hospitalization/Major Diagno stic Procedure: D iverticulitis 12-17-09, [facility] ER-right arm pain 09/16/18. * Family History: F ather: , stroke, hypertension, CAD. M other: alive, pacemaker, stroke. 1 daughter(s) - healthy. . * Social History: C URRENT TOBACCO USE S moking Status: Patient does NOT smoke. C affeine: yes, frequency:. Home smoke detector use: yes. Past smoking status: no, Smoking status: Does not smoke. Alcohol: Type: , Frequency: ,Years: , Determination:. * Medications: T aking oxyBUTYnin Chloride ER 10 MG Tablet Extended Release 24 Hour 1 tablet Orally Once a day , Taking Aspirin 81 MG Tablet Delayed Release 1 tab(s) orally every other day , Taking Lidocaine-Hydrocortisone Chester 3-2.5 % Kit apply rectally 2 times a day , Taking Tamsulosin HCl 0.4 MG Capsule TAKE 1 CAPSULE BY MOUTH ONCE DAILY AT BEDTIME FOR 90 DAYS , Taking Irbesartan 150 MG Tablet 1 tab(s) orally once a day , Taking Sulindac 200 MG Tablet 1 tab(s) orally 2 times a day , Taking Omeprazole 40 MG Capsule Delayed Release take 1 capsule by mouth once daily 30 minutes before morning meal Orally Once a day , Not-Taking Loratadine 10 MG Tablet 1 tab(s) orally once a day , Notes to Pharmacist: otc, Medication List reviewed and reconciled with the patient * Allergies: E rythromycin, Atorvastatin. Objective: * Vitals: W t:242.4, Temp:97.6, BP:98/70, HR:79, O2 Sat:97% on RA, Nurse:KAREEN, Ht: 75.50, BMI:29.89. * Examination: G eneral Examination: General Appearance: NAD, appears healthy, alert, , pleasant. H EENT: sclera and conjunctiva clear, PERRLA, TM's normal, translucent. O ral cavity: mucosa moist and WNL, no erythema. N fariha: supple, no lymphadenopathy. H eart: RRR. L ungs: CTAB A&P. N eurologic Exam: alert and oriented. E xtremities: no leg edema. Assessment: * Assessment: 1. A cute URI - J06.9 (Primary) 2 . A jeb cough - R05.1 Plan: * Treatment: Value Reference [place] r esults neg * Deena Jasso 04/27/2024 12:1 6:28 PM > results reviewed w/ pt in office ?LAB: CBC Fingerstick (in house) (Collection Date & Time - 04/27/2024)* Value Reference [place] w bc 7.2 3.5 - 10 * l ym 18.9 15 - 50 * m id 6.1 2 - 15 * g ran 75.0 35 - 80 * r bc 4.51 3.5 - 5.5 * h gb 13.8 11.5 - 16.5 * h ct 40.4 35 - 55 * m cv 89.6 75 - 100 * m ch 30.6 25 - 35 * m chc 34.1 31 - 38 * p lat 198 100 - 400 * Deena Jasso 04/27/2024 11:0 7:51 AM > results reviewed w/ pt in office ?LAB: Covid test (in house) (Collection Date & Time - 04/27/2024)?Negative* Value Reference [place] R esult: neg * Deena Jasso 05/02/2024 8:03: 35 AM > reviewed w/ pt in office 2.?Acute cough? Start Benzonatate Capsule, 200 MG, 1 capsule as needed, Orally, three times a day as needed, 30, Refills 0.??3.?Others? Start HYDROcodone Bit-Homatrop MBr Solution, 5-1.5 MG/5ML, 5 ml as needed, Orally, four times a dayas needed, 250 Milliliter, Refills 0.?? * Procedure Codes: G 2211 Complex e/[place], [address] [place], [address] CAPILLARY BLOOD DRAW, 02583 CBC WITH AUTO DIFF, 58349 Flu Test- Nasal Swab, Modifiers: QW , 01196 COVID TEST IN HOUSE, Modifiers: QW * Follow Up: a s scheduled * Images: Billing Information: * Visit Code: 25819 Office Visit, Est Pt., Level 3. * Procedure Codes: G2211 Complex e/[place]. [address] [place]. [address] CAPILLARY BLOOD DRAW. 42016 CBC WITH AUTO DIFF. 86329 Flu Test- Nasal Swab. Modifiers: QW 68633 COVID TEST IN HOUSE. Modifiers: QW * Electronic signature of Ap Singleton MD on 03/22/2025 at 02:17 PM EST Sign off status: Pending * Provider: Ap Singleton M.D. Date: 0 04/27/2024 Generated for Printi ng/Faxing/eTransmitting on: 1 05/23/2024 02:17 PM EST History and Physical Notes * HPI (History of Present Illness) Category Sub-Category Detail Notes Category Not es ENT/respiratory cough Pt presents toda y with c/o cough and nasal congestion for a couple of weeks. Pt sts that he has yellow sputum production. Pt sts that he has some post nasal drainage but not a lot. Pt sts that when he first got sick that he had a couple of days of fever and body aches but sts that has resolved and he mostly has a lingering cough with sinus congestion Fever post nasal drainage headache chest congestion nasal congestion body aches Examination Category Sub-Category Detail Notes Category Not es General Examination HEENT: sclera and c onjunctiva clear, PERRLA, TM's normal, translucent Heart: RRR Lungs: CTAB A&P Extremities: no leg edema General Appearance: NAD, appears healthy , alert, , pleasant Neurologic Exam: alert and oriented Neck: supple, no lymphaden opathy Oral cavity: mucosa moist and WNL , no erythema
--- OUTSIDE RECORDS SUMMARY | 2024-05-15 05:00 | XMS_ITS ---
[facility] Address [address] [place] [id number] Care Team Providers Care Veneer Supervisor Name Role Phone Ap Singleton Primary Care Provider [phone] Beverley Franz Unavailable [phone] Allergies Allergen (clinical drug ingredient) Drug/Non Drug Allergy documented on EMR Reaction Allergy Type Onset Date Status erythromycin Erythromycin Unknown Drug Allergy A ctive atorvastatin Atorvastatin Unknown Drug Allergy A ctive Results Component Value Reference Range Notes CBC Fingerstick (in house) Reviewed date:05/15/2024 07:36:10 PM Interpretation: Performing Lab: Notes/Report: wbc 5.9 3.5 - 10 lym 31.9 15 - 50 mid 6.6 2 - 15 gran 61.5 35 - 80 rbc 4.60 3.5 - 5.5 hgb 14.1 11.5 - 16.5 hct 42.1 35 - 55 mcv 91.4 75 - 100 mch 30.6 25 - 35 mchc 33.5 31 - 38 plat 129 100 - 400 CXR Reviewed date:06/05/2024 02:27:19 PM Interpretation:Negative Performing Lab: Notes/Report: Negative Reason For Referral Diagnosis 1 Prostate nodule (N40 .2) Referral Organization [facility] Referring Provider First Name Beverley Referring Provider Last Name Osei Referring Provider Speciality Family Pra ctice Referred Provider Urology, . Referred Provider Specialty Urology General Notes Beverley Franz 12:09:02 PM > wants a second opinion with Dr Vargas or Dr Narvaez for a prostat nodule; will be OOT from 05/24-05/31/2024, Cass Thomson 05/15/2024 1:23:57 PM > sent to Dr. Vargas at [facility] Referral Priority Routine Diagnosis 1 Diverticulitis of la rge intestine without perforation or abscess without bleeding (K57.32) Referral Organization [facility] Referring Provider First Name Beverley Referring Provider Last Name Osei Referring Provider Speciality Family Pra ctice Referred Provider YOHANNES BARAKAT Referred Provider Specialty Gastroentero logy General Notes Beverley Franz 8:38:51 AM > history of chronic diverticulits and probable reflux; wishes to see Alix Solomon Brynn 05/21/2024 11:15:48 AM > spoke with Haley and refaxed referral Referral Priority Routine REASON FOR VISIT 2 month check and AWV Medications Medication SIG (Take, Route, Frequency, Duration) Notes Start Date End Date Status oxyBUTYnin Chloride ER 10 MG 1 tablet Orally Once a day Active Benzonatate 200 MG 1 capsule as needed Orally three times a day as needed 04/27/2024 Active HYDROcodone Bit-Homatrop MBr 5-1.5 MG/5ML 5 ml as needed Orally four times a day as needed 04/27/2024 Active Voquezna 10 MG 1 tablet Orally Once a day; Duration: 30 day(s) 05/15/2024 Active Omeprazole 40 MG take 1 capsule by [facility] once daily 30 minutes before morning meal Orally Once a day; Duration: 90 days Active Sulindac 200 MG 1 tab(s) orally 2 ti mes a day Active Lidocaine-Hydrocortisone [place] 3-2.5 % apply rectally 2 times a day 01/05/2021 Active Irbesartan 150 MG 1 tab(s) orally once a day Active Tamsulosin HCl 0.4 MG TAKE 1 CAPSULE BY MOUTH ONCE DAILY AT BEDTIME FOR 90 DAYS Active Aspirin 81 MG 1 tab(s) orally ever y other day Active Problems Problem Type SNOMED Code ICD Code Onset Dates Problem Status W/U Status Risk Notes Problem Gastroesophageal reflux disease (268308821) Reflux (K21.9) Active confirmed Problem Prostate nodule (019886688839200) Prostate nodule (N40.2) Active confirmed Problem Hypertension (70287613) HTN (hypertensio n) (I10) Active confirmed Problem Body mass index 30.00 to 34.99 (586839833328311) BMI 31.0-31.9,ad ult (Z68.31) Active confirmed Vital Signs Weight 254.4 lbs 05/15/2024 Blood pressure systolic 118 mm Hg 05/15/19 25 Blood pressure diastolic 72 mm Hg 025 Heart Rate 78 /min 05/15/2024 Height 75.50 in 05/15/2024 BMI 31.37 kg/m2 05/15/2024 Encounters Encounter Location Date Provider Diagnosis [facility] [address] [place], [place] [id number] 05/15/2024 Beverley Franz Adult general medical examination Z00.00 ; Cough R05.9 ; Reflux K21.9 ; Prostate nodule N40.2 ; Lipid screening Z13.220 ; HTN (hypertension) I10 ; Diverticulitis of large intestine without perforation or abscess without bleeding K57.32 ; Pure hypercholesterolemia E78.00 ; Other chronic pain G89.29 ; Primary osteoarthritis of both knees M17.0 ; Frequent urination R35.0 and BMI 31.0-31.9,adult Z68.31 Assessments Encounter Date Diagnosis (ICD Code) Assessment Notes Treatment Notes Treatment Clinical Notes Section Notes 05/15/2024 Adult general medica l examination (ICD-10 - Z00.00) Patient instructed to return to office Annually for Annual Wellness Visits to include annual screenings of Pain assessment, Functional Ability assessment, Cognitive Ability assessment, Fall Risk assessment, Depression screening and Bladder control screening. 05/15/2024 Cough (ICD-10 - R05.9) discu ssed possiblity of reflux as the cause of the cough; will try voquezna; discussed eating early dinners and elimination of most caffeine and pop; he will note recent eaten foods if he has the full feelingi in his throat throat/cough 05/15/2024 Reflux (ICD-10 - K21.9) will do GI consult 05/15/2024 Prostate nodule (ICD -10 - N40.2) wants a second opinion with Dr. Vargas or Dr. Narvaez 05/15/2024 Lipid screening (ICD -10 - Z13.220) will RTC for fasting Lipids 05/15/2024 HTN (hypertension) (ICD-10 - I10) 05/15/2024 Diverticulitis of la rge intestine without perforation or abscess without bleeding (ICD-10 - K57.32) note reviewed from last visit ith Dr Khan in 2019 and note pt most likely had a chronic diverticulitis and recommended surgery; has not had FU GI appt since; discussed GI referral for repeat colonoscopy and problem with reflux 05/15/2024 Pure hypercholesterolemia (ICD-10 - E78.00) 05/15/2024 Other chronic pain (ICD-10 - G89.29) 05/15/2024 Primary osteoarthrit is of both knees (ICD-10 - M17.0) 05/15/2024 Frequent urination (ICD-10 - R35.0) 05/15/2024 BMI 31.0-31.9,adult (ICD-10 - Z68.31) 05/15/2024 Other will RTO for fasting labs to include CMP, A!C, Lipids, MG++ will RTC for lab Plan Of Treatment Medication Medication Name Sig Start Date Stop Date Notes oxyBUTYnin Chloride ER 10 MG 1 tablet Orally Once a day Voquezna 10 MG 1 tablet Orally Once a day; Duration: 30 day(s) 05/15/2024 Sulindac 200 MG 1 tab(s) orally 2 times a day Irbesartan 150 MG 1 tab(s) orally once a day Tamsulosin HCl 0.4 MG TAKE 1 CAPSULE BY MOUTH ONCE DAILY AT BEDTIME FOR 90 DAYS Aspirin 81 MG 1 tab(s) orally ever y other day Treatment Notes Assessment Notes Adult general medical examination Patien t instructed to return to office Annually for Annual Wellness Visits to include annual screenings of Pain assessment, Functional Ability assessment, Cognitive Ability assessment, Fall Risk assessment, Depression screening and Bladder control screening. Cough discussed possiblity of reflux as the cause of the cough; will try voquezna; discussed eating early dinners and elimination of most caffeine and pop; he will note recent eaten foods if he has the full feelingi in his throat throat/cough Reflux will do GI consult Prostate nodule wants a second opini on with Dr. Vargas or Dr. Narvaez Lipid screening will RTC for fasting Lipids Diverticulitis of large inte rod without perforation or abscess without bleeding note reviewed from last visit ith Dr Khan in 2019 and note pt most likely had a chronic diverticulitis and recommended surgery; has not had FU GI appt since; discussed GI referral for repeat colonoscopy and problem with reflux Other will RTO for fasting labs to include CMP, A!C, Lipids, MG++ will RTC for lab Referrals Referral Date Details 05/15/2024 05/15/2024, . Urolog y 05/16/2024 05/16/2024, YOHANNES KRISTOFER CRISTIANO Next Appt Details Follow Up: will RTO for fast ing labs nd in 3 weeks, Reason: Provider Name:Issa Segundo ry, 03/22/2025 02:15:00 PM, [address], [address], [place], [place], [id number], Provider Name:Beverley elena, 04/08/2025 10:00:00 AM, [address], [address], [place], [place], [id number], Progress Notes * Lawrence CARRDOB:07/1954 (70 yo M)Acc No.[id number]:05/15/2024 Annual Wellness Visit Patient: Julieta EspanaCAROMEGAN Lawrence Provider: TARIQ Arguelles :1955 A ge:69 Y S ex:Male Date:05/15/2024 Address[address], [facility], [id number] Pcp:Ap Singleton Subjective: * Chief Complaints: * 1 . 2 month check and AWV. * HPI: H PI: Patient is here today for a scheduled 2 month c heck up and a Medicare Annual Wellness Visit. Pt sts he has had a cough and cold for 3-4 weeks and sts he saw Dr. Singleton adn was given Benzonatate and sts it has not helped. Pt sts he thinks it has made him cough more and would like a different medication. Pt sts he is not impressed with Dr. Pineda and would like a 2nd opinion from a different urologist . O pthalmology: Pt sts his eyes are doing better. E NT/respiratory: c/o cough w orse after EATING. c/o post nasal drainage. c/o Short of Breath. c/o chest congestion. Denies : sore throat. D enies : ear pain. D enies : headache. D enies : smoking. D enies : dizziness. D enies : body aches. throat congestion; worse with lying down; eating and drinking OK. * ROS: D ERMATOLOGY: no R shahnaz. n o H tiara. G ASTROENTEROLOGY: no N ausea. n o V omiting. n o D iarrhea.? M USCULOSKELETAL: Joint pain y es, s h[place]; PT was a tremendous help.? O PTHALMOLOGY: Negative for d enies issues with vision. P ositive for?saw his eye MD and was started on PO Magnesium and B12 and vit D after which twitching stopped.? U ROLOGY: Positive for u rology appt with Dr. Eaton 05/14/2024 with the following documentation:
? < content>HPI<br style= -ylhhys-bjd-tlnrgsorx-color: rgba(0, 0, 0, 0)"></content><content>labs<br style= -rbnueb-pjf-vqhoqduka-color: rgba(0, 0, 0, 0) ></content><content>Details: <br style= -pdunzq-yxp-qyysthewg-color: rgba(0, 0, 0, 0) ></content><content>Prostate nodule: On TRACI the patient was found to have a prostate nodule. His PSA has returned at 3.8 on 03/20. I am going to recommend an MRI of the prostate at this point.<br style= -yhwowl-ena-cdsdsimnq-color: rgba(0, 0, 0, 0)"></content><content><br style= -borxky-euw-thginjhev-color: rgba(0, 0, 0, 0) ></content><content>BPH with LUTS: The patient is voiding much better and has better control on Ditropan and Flomax. He would like to continue this treatment program. He now has nocturia x 0-1. He denies hesitation, intermittency, straining urinate, or feeling of incomplete emptying of the bladder.<br style= -qnwtzp-toa-ptbesecxo-color: rgba(0, 0, 0, 0) ></content><content><br style= -qxrmoy-vro-yjveruhvl-color: rgba(0, 0, 0, 0) ></content><content>Impotence: The patient has problems obtaining and maintaining an erection. I placed him on daily Cialis and he took it for a couple of weeks. He probably did not give it enough time for efficacy as his has been ill with pneumonia. He would like to continue this program as well.
& amp;#160;<content>Assessment & Plan<br style= -skadce-ess-ybnrkwzeu-color: rgba(0, 0, 0, 0) ></content><content>(1) BPH loc w/o ur obs/LUTS: <br style= -amoctz-sul-cnplxnrcs-color: rgba(0, 0, 0, 0) ></content><content></content><content>Code(s):<br style= -pldpyp-yza-zlmvmhcsa-color: rgba(0, 0, 0, 0) ></content><content>N40.0 - Benign prostatic hyperplasia without lower urinary tract symptoms<br style= -jhoxyh-rgi-oddbpdkfe-color: rgba(0, 0, 0, 0) ></content><content></content><content>Status: </content><content>Acute<br style= -zkyxvt-vlt-iqlrfepuy-color: rgba(0, 0, 0, 0) ></content><content>(2) Impotence: <br style= -czvgil-oxo-dcyeibpib-color: rgba(0, 0, 0, 0) ></content><content></content><content>Code(s):<br style= -xfzeff-jka-goutjwhhb-color: rgba(0, 0, 0, 0) ></content><content>N52.9 - Male erectile dysfunction, unspecified<br style= -jvrnup-wnj-ldrjhzchq-color: rgba(0, 0, 0, 0) ></content><content></content><content>Status: </content><content>Acute<br style= -thfziw-jkr-occcxtqsy-color: rgba(0, 0, 0, 0) ></content><content>(3) Prostate nodule: <br style= -yzxmnm-ueh-aegzuebxo-color: rgba(0, 0, 0, 0) ></content><content></content><content>Code(s):<br style= -lysrgv-swp-ubkbabodc-color: rgba(0, 0, 0, 0) ></content><content>N40.2 - Nodular prostate without lower urinary tract symptoms<br style= -lscyna-oug-wrmvjztxj-color: rgba(0, 0, 0, 0) ></content><content></content><content>Status: </content><content>Acute<br style= -wqwyie-qcc-gkujwkdul-color: rgba(0, 0, 0, 0) ></content><content>(4) Elevated PSA measurement: <br style= -vthmrl-paq-gbdrczthm-color: rgba(0, 0, 0, 0) ></content><content></content><content>Code(s):<br style= -clkkrt-voh-hqwouankd-color: rgba(0, 0, 0, 0) ></content><content>R97.20 - Elevated prostate specific antigen [PSA]<br style= -zrnpqp-tqy-afthnznrj-color: rgba(0, 0, 0, 0) ></content><content></content><content>Status: </content><content>Acute<br style= -jltgjx-nev-ooltdlxfq-color: rgba(0, 0, 0, 0) ></content><content>Orders: <br style= -ztgrtr-fpu-hvwnmzyyg-color: rgba(0, 0, 0, 0) ></content><content>Orders<br style= -pmeyui-xwg-iuvsnibak-color: rgba(0, 0, 0, 0) ></content><table style= border: 0.5px solid; border-collapse:collapse; position:relative; width:99%; margin-left: 1px; table-layout:fixed; word-break:break-word; -dc-gyfu-cgic:break-word; class= vcrgi-ea-hsffj-table ><tbody><tr><td style= border: 0.5px solid; paddinpx; width:100px; min-width:100px; box-sizing:border-box; font-size:13.33px; min- height: 20px; ><content>PSA Total+% Free</content></td><td style= border: 0.5px solid; paddinpx; width:100px; min-width:100px; box-sizing:border-box; font- size:13.33px; min-height: 20px; ><content>Today</content></td><td style= border: 0.5px solid; paddinpx; width:100px; min-width:100px; box-sizing:border-box; font- size:13.33px; min-height: 20px; > < /td><td style= border: 0.5px solid; paddinpx; width:100px; min-width:100px; box-sizing:border-box; font-size:13.33px; min-height: 20px; ><content>N40.0 - Benign prostatic hyperplasia without lower urinary tract symptoms, R97.20 - Elevated prostate specific antigen [PSA]</content></td></tr><tr><td style= border: 0.5px solid; paddinpx; width:100px; min-width:100px; box-sizing:border-box; font-size:13.33px; min-height: 20px; ><content>AMB Urinalysis</content></td><td style= border: 0.5px solid; paddinpx; width:100px; min-width:100px; box-sizing:border-box; font-size:13.33px; min-height: 20px; ><content>Today</content></td><td style= border: 0.5px solid; paddinpx; width:100px; min-width:100px; box-sizing:border-box; font-size:13.33px; min- height: 20px; > < /td><td style= border: 0.5px solid; paddinpx; width:100px; min-width:100px; box-sizing:border-box; font-size:13.33px; min-height: 20px; ><content>N52.9 - Male erectile dysfunction, unspecified</content></td></tr><tr><td style= border: 0.5px solid; paddinpx; width:100px; min-width:100px; box-sizing:border-box; font-size:13.33px; min-height: 20px; ><content>MR pelvis wo/w con</content></td><td style= border: 0.5px solid; paddinpx; width:100px; min-width:100px; box-sizing:border-box; font-size:13.33px; min-height: 20px; ><content>Today</content></td><td style= border: 0.5px solid; paddinpx; width:100px; min-width:100px; box-sizing:border-box; font-size:13.33px; min- height: 20px; > < /td><td style= border: 0.5px solid; paddinpx; width:100px; min-width:100px; box-sizing:border-box; font-size:13.33px; min-height: 20px; ><content>N40.0 - Benign prostatic hyperplasia without lower urinary tract symptoms, R97.20 - Elevated prostate specific antigen [PSA]</content></td></tr></tbody></table><content><br style= -pswnoi-iox-iggpmlbuk-color: rgba(0, 0, 0, 0) ></content><content>Medications: <br style= -psneyh-aej-muvjmgdgv-color: rgba(0, 0, 0, 0) ></content><content>Refilled<br style= -lahqxw-hqw-szfzhqjwi-color: rgba(0, 0, 0, 0) ></content> </content><table style= border: 0.5px solid; border-collapse:collapse; position:relative; width:99%; margin-left: 1px; table-layout:fixed; word-break:break-word; -zn-usew-abig:break-word; class= ozljc-pf-jepfi-table ><tbody><tr><td style= border: 0.5px solid; paddinpx; width:100px; min-width:100px; box-sizing:border-box; font-size:13.33px; min- height: 20px; ><content>oxybutynin chloride ER</content></td><td style= border: 0.5px solid; paddinpx; width:100px; min-width:100px; box-sizing:border-box; font-size:13.33px; min-height: 20px; ><content>10 mg PO DAILY 90 tabs 1RF 90 days</content></td><td style= border: 0.5px solid; paddinpx; width:100px; min-width:100px; box-sizing:border-box; font-size:13.33px; min-height: 20px; > & lt;/td><td style= border: 0.5px solid; paddinpx; width:100px; min- width:100px; box-sizing:border-box; font-size:13.33px; min-height: 20px; > < /td></tr><tr><td style= border: 0.5px solid; paddinpx; width:100px; min-width:100px; box-sizing:border-box; font-size:13.33px; min-height: 20px; ><content>tadalafil (Cialis)</content></td><td style= border: 0.5px solid; paddinpx; width:100px; min-width:100px; box-sizing:border-box; font- size:13.33px; min-height: 20px; ><content>5 mg PO DAILY 30 tabs 2RF</content></td><td style= border: 0.5px solid; paddinpx; width:100px; min-width:100px; box-sizing:border-box; font-size:13.33px; min-height: 20px; > < /td><td style= border: 0.5px solid; paddinpx; width:100px; min-width:100px; box-sizing:border-box; font-size:13.33px; min-height: 20px; > < /td></tr><tr><td style= border: 0.5px solid; paddinpx; width:100px; min-width:100px; box-sizing:border-box; font-size:13.33px; min-height: 20px; ><content>tamsulosin (Flomax)</content></td><td style= border: 0.5px solid; paddinpx; width:100px; min-width:100px; box-sizing:border-box; font- size:13.33px; min-height: 20px; ><content>0.4 mg PO DAILY 90 caps 1RF 90 days</content></td><td style= border: 0.5px solid; paddinpx; width:100px; min-width:100px; box-sizing:border-box; font-size:13.33px; min-height: 20px; >?</td><td style= border: 0.5px solid; paddinpx; width:100px; min-width:100px; box-sizing:border-box; font-size:13.33px; min-height: 20px; > < /td></tr></tbody></table><content><br style= FONT-SIZE: 13px; FONT-FAMILY: Verdana; WHITE-SPACE: pre-wrap; WORD-SPACINpx; TEXT-TRANSFORM: none; FONT-WEIGHT: 400; COLOR: rgb(0,0,0); FONT-STYLE: normal; TEXT-ALIGN: left; ORPHANS: 2; WIDOWS: 2; LETTER-SPACING: normal; BACKGROUND-COLOR: rgb(255,255,255); TEXT-INDENT: 0px; -keygvp-sap-nxtvbdtne-color: rgba(0, 0, 0, 0); lmrh-ouxehga-gphbhsdoc: normal; eyei-gjvquth-oxel: normal; -rclqhy-rwvu-tcdtvd-width: 0px; isbm-clmyvxlsvx-pnzegzwar: initial; ducj-guswjqemmp-orrez: initial; oaec-zildtrinmm-hxyhs: initial ></content>
<br style= -uhdnhj-rec-hhfvloyot-color: rgba(0, 0, 0, 0) >. n o D ifficulty urinating. n o B lood in urine. F requent urination yes, m uch better after strted on med by Dr. Eaton. p t would like second urology opinion for plan for eval of prostate nodule; med did help his urinary frequency. * Medical History: H ypertension, Esophageal reflux, [...] Hospitalization/Major Diagno stic Procedure: D iverticulitis 12-17-09, [facility] ER-right arm pain 09/16/18. * Family History: [...] morning meal Orally Once a day , Taking HYDROcodone Bit-Homatrop MBr 5-1.5 MG/5ML Solution 5 ml as needed Orally four times a day as needed , Taking Benzonatate 200 MG Capsule 1 capsule as needed Orally three times a day as needed , Medication List reviewed and reconciled with the patient * Allergies: E rythromycin, Atorvastatin. Objective: * Vitals: W t:254.4, Temp:97.9, BP:118/72, HR:78, O2 Sat:95% on RA, Nurse:yamilex, Ht: 75.50, BMI:31.37. * Examination: E NT/Respiratory: General Appearance: well nourished and hydrated, NAD, alert, active. E yes: sclera and conjunctiva clear. E ars: auditory canals normal bilaterally, tympanic membranes normal bilaterally. O ral cavity : no erythema or exudate seen on pharynx. N fariha : supple, no cervical lymphadenopathy, carotids wihout bruits. H eart : RRR. L ungs: CTAB A&P. * Physical Examination: G ENERAL: Pain Assessment: P ain level: between 2-3, on a scale of 0 to 10 (10 being extreme pain); this is shoulder pain. F unctional Status Assessment: P atient response to how often physical health interferes with daiy activities: occasionally Able to perform ADLs-including meal preparation, grocery shopping, housework, laundry, taking medications, or handling finances. he is most active; plays golf Cognitive Status: Alert and oriented. Ambulation Status: Fully ambulatory. F all Risk Assessment: I ndependent in ambulation, adequate lighting in home; sometimes is unsteady when he arises in the AM. D epression Screening: D enies depressed mood or anxiety. Describes emotional health as: calm and peaceful. B ladder Control Screening: s mall problem; has improved with meds. Assessment: * Assessment: 1. A dult general medical examination - Z00.00 (Primary) 2 . C ough - R05.9? 3. R eflux - K21.9 4 . P rostate nodule - N40.2 5 . L ipid screening - Z13.220 6 . H TN (hypertension) - I10 & #160; 7 . D iverticulitis of large intestine without perforation or abscess without bleeding - K57.32 8 . P ure hypercholesterolemia - E78.00 9 . O ther chronic pain - G89.29 1 0. P rimary osteoarthritis of both knees - M17.0 & #160; 1 1. F requent urination - R35.0 1 2. B MT 31.0-31.9,adult - Z68.31? Plan: * Treatment: 2. C ough L AB: CBC Fingerstick (in house) (Collection Date & Time - 05/15/2024) Value Reference Range w bc 5.9 3.5 - 10 * l ym 31.9 15 - 50 * m id 6.6 2 - 15 * g ran 61.5 35 - 80 * r bc 4.60 3.5 - 5.5 * h gb 14.1 11.5 - 16.5 * h ct 42.1 35 - 55 * m cv 91.4 75 - 100 * m ch 30.6 25 - 35 * m chc 33.5 31 - 38 * p lat 129 100 - 400 * Carina Richards 05/15/2024 11:24 :40 AM > Provider reviewed results while patient in office.Franz,Beverley 05/15/2024 7:36:10 PM > ?Imaging: CXR (Performed Date - 05/15/2024)?Negative* Diane Franzharine 05/16/2024 9:09:56 AM >Bennett Franzine 06/05/2024 2:27:03 PM > reviewed with pt in the office Notes: discussed possiblity of reflux as the cause of the cough; will try voquezna; discussed eating early dinners and elimination of most caffeine and pop; he will note recent eaten foods if he has the full feelingi in his throat throat/cough??3.?Reflux? Start Voquezna Tablet, 10 MG, 1 tablet, Orally, Once a day, 30 day(s), 30.?? Notes: will do GI consult??4.?Prostate nodule? Notes: wants a second opinion with Dr. Vargas or Dr. Narvaez? Referral To:. Urology??Urology ?Reason: 5.?Lipid screening? Notes: will RTC for fasting Lipids??6.?HTN (hypertension)? Continue Irbesartan Tablet, 150 MG, 1 tab(s), orally, once a day.?? 7.?Diverticulitis of large intestine without perforation or abscess without bleeding? Notes: note reviewed from last visit ith Dr Khan in 2019 and note pt most likely had a chronic diverticulitis and recommended surgery; has not had FU GI appt since; discussed GI referral for repeat colonoscopy and problem with reflux?&# 160;? Referral To:YOHANNES BARAKAT??Gastroenterology ?Reason: 8.?Primary osteoarthritis of both knees? Continue Sulindac Tablet, 200 MG, 1 tab(s), orally, 2 times a day.??9.?Frequent urination? Continue Tamsulosin HCl Capsule, 0.4 MG, TAKE 1 CAPSULE BY MOUTH ONCE DAILY AT BEDTIME FOR 90 DAYS; Continue oxyBUTYnin Chloride ER Tablet Extended Release 24 Hour, 10 MG, 1 tablet, Orally, Oncea day.??10.?Others? Continue Aspirin Tablet Delayed Release, 81 MG, 1 tab(s), orally, every other day.?? Notes: will RTO for fasting labs to include CMP, A!C, Lipids, MG++ will RTC for lab?? * Procedure Codes: G 0438 ANNUAL WELLNES VST; PERSNL PPS INIT, G2211 Complex [place], [address] PULSE OX, G0444 ANNUAL DEPRESSION SCREENING 15 MIN, 1090F PRES/ABSN URINE INCON ASSESS, 3288F FALL RISK ASSESSMENT DOCD, 1170F FXNL STATUS ASSESSED, 1159F MED LIST DOCD IN RCRD, 1003F LEVEL OF ACTIVITY ASSESS, 1036F TOBACCO NON-USER, 3017F COLORECTAL CA SCREEN DOC REV, 06246 CBC WITH AUTO DIFF, 66446 CAPILLARY BLOOD DRAW, 1125F AMNT PAIN NOTED PAIN PRSNT, 3074F SYST BP LT 130 MM HG, 3078F DIAST BP < 80 MM HG * Preventive Medicine: Counseling: E motional health: E ncouraged to try connecting with family or friends to boost mood. B ladder control: D iscussed ways to control/manage leakage of urine. Exercise: A dvised to start, increase or maintain level of exercise/physical activity. I njury prevention: D iscussed fall prevention. Discussed need for cane/walker. Potential trip hazards discussed. Immunizations: T etanus u p to date. P neumococcal r ecommended. I nfluenza u p to date. Screening / Special Tests: C olonoscopy 1 , diverticulosis, hemorrhoids, repeat 7 years. P SA , normal. D iabetic Retinal Eye Exam . * Follow Up: w ill RTO for fasting labs nd in 3 weeks * Images: Billing Information: * Visit Code: 11936 Office Visit, Est Pt., Level 4. Modifiers: 25 * Procedure Codes: G0438 ANNUAL WELLNES VST; PERSNL PPS INIT. G2211 Complex e/[place]. [address] PULSE OX. G0444 ANNUAL DEPRESSION SCREENING 15 MIN. 1090F PRES/ABSN URINE INCON ASSESS. 3288F FALL RISK ASSESSMENT DOCD. 1170F FXNL STATUS ASSESSED. 1159F MED LIST DOCD IN RCRD. 1003F LEVEL OF ACTIVITY ASSESS. 1036F TOBACCO NON-USER. 3017F COLORECTAL CA SCREEN DOC REV. 91371 CBC WITH AUTO DIFF. 03168 CAPILLARY BLOOD DRAW. 1125F AMNT PAIN NOTED PAIN PRSNT. 3074F SYST BP LT 130 MM HG. 3078F DIAST BP < 80 MM HG. * Electronic signature of Wen Franz APRN on 03/22/2025 at 02:17 PM EST Sign off status: Pending * Provider: TARIQ Arguelles Date: 0 05/15/2024 Generated for Dutch potter/Denis/Joan on: 1 05/23/2024 02:17 PM EST History and Physical Notes * HPI (History of Present Illness) Category Sub-Category Detail Notes Category Not es ENT/respiratory sore throat throat conge stion; worse with lying down; eating and drinking OK ear pain Short of Breath cough worse after EATING post nasal drainage headache chest congestion smoking dizziness body aches Opthalmology Pt sts his eyes are doing better HPI Patient is here toda y for a scheduled 2 month check up and a Medic are Annual Wellness Visit. Pt sts he has had a cough and cold for 3-4 weeks and sts he saw Dr. Singleton adn was given Benzonatate and sts it has not helped. Pt sts he thinks it has made him cough more and would like a different medication. Pt sts he is not impressed with Dr. Pineda and would like a 2nd opinion from a different urologist Physical Examination Category Sub-Category Detail Notes Section Note s GENERAL Pain Assessment: Pain level: bet ween 2-3, on a scale of 0 to 10 (10 being extreme pain); this is shoulder pain Functional Status Assessment: Patient response to how often physical health interferes with daiy activities: occasionally Able to perform ADLs-including meal preparation, grocery shopping, housework, laundry, taking medications, or handling finances. he is most active; plays golf Cognitive Status: Alert and oriented. Ambulation Status: Fully ambulatory Fall Risk Assessment: Independent in amb ulation, adequate lighting in home; sometimes is unsteady when he arises in the AM Depression Screening: Denies depressed m ood or anxiety. Describes emotional health as: calm and peaceful Bladder Control Screening: small problem ; has improved with meds Examination Category Sub-Category Detail Notes Category Not es ENT/Respiratory Oral cavity : no erythema or exudate s een on pharynx Ears: auditory canals norm al bilaterally, tympanic membranes normal bilaterally Neck : supple, no cervical lymphadenopathy, carotids wihout bruits Heart : RRR Lungs: CTAB A&P General Appearance: well nourished and h ydrated, NAD, alert, active Eyes: sclera and conjuncti va clear Consultation Request Notes Referral Date Referring Provider Referred Provider Not es 05/15/2024 Beverley Franz [facility], . 05/16/2024 Beverley Franz EAR[facility]
--- OUTSIDE RECORDS SUMMARY | 2024-05-18 05:00 | XMS_ITS ---
Author Organization [facility] Address [address] [place] [id number] Care Team Providers Care Tool Engine Lathe Set Up Operator Name Role Phone Ap Singleton Primary Care Provider FranzBennett elenasunny Staley [phone] Results Component Value Reference Range Notes Glycohemoglobin A1c (in hous e) Reviewed date:05/28/2024 02:42:12 PM Interpretation: Performing Lab: Notes/Report: P-Lipid Panel Reviewed date:06/05/2024 02:28:07 PM Interpretation:LDL 141;HDL 47;TG 109 Performing Lab: Notes/Report: Test performed by [facility] [address] [place] [address] , [address], [place] [address] Delmar Jaramillo MD, Fish Drier CLIA: [id number] Cholesterol 210 <200 mg/dL Triglycerides 109 <150 mg/dL HDL Cholesterol 47 >39 mg/dL Cholesterol / HDL Ratio 4.47 0.00-4.99 Ratio Non-HDL Cholesterol 163 <130 mg/dL LDL Cholesterol (Calculation) 141 <130 mg/dL LDL Cholesterol Levels* Less than 100 mg/dL Optimal 100 to 129 mg/dL Near Optimal/ Above Optimal 130 to 159 mg/dL Borderline High 160 to 189 mg/dL High 190 mg/dL and above Very High * Categories as recommended by the 2004 ATPIII guidelines LDL/HDL Ratio 3.0 <3.3 Ratio LDL Cholesterol Patient History Test Date: 06/03/2023 LDL Results: 126 Units: mg/dL % Change: - Test Date: 05/18/2024 LDL Results: 141 Units: mg/dL % Change: +11% REASON FOR VISIT lab draw Medications Medication SIG (Take, Route, Frequency, Duration) Notes Start Date End Date Status Sulindac 200 MG 1 tab(s) orally 2 ti mes a day Active oxyBUTYnin Chloride ER 10 MG 1 tablet Orally Once a day Active Aspirin 81 MG 1 tab(s) orally ever y other day Active Tamsulosin HCl 0.4 MG TAKE 1 CAPSULE BY MOUTH ONCE DAILY AT BEDTIME FOR 90 DAYS Active Irbesartan 150 MG 1 tab(s) orally once a day Active Lidocaine-Hydrocortisone Chester 3-2.5 % apply rectally 2 times a day 01/05/2021 Active Omeprazole 40 MG take 1 capsule by [facility] once daily 30 minutes before morning meal Orally Once a day; Duration: 90 days Active HYDROcodone Bit-Homatrop MBr 5-1.5 MG/5ML 5 ml as needed Orally four times a day as needed 04/27/2024 Active Benzonatate 200 MG 1 capsule as needed Orally three times a day as needed 04/27/2024 Active Voquezna 10 MG 1 tablet Orally Once a day; Duration: 30 day(s) 05/15/2024 Active Encounters Encounter Location Date Provider Diagnosis [facility] [address] [place] [id number] 05/18/2024 Beverley Franz Pure hypercholesterolemia E78.00 ; Hyperglycemia R73.9 and Essential hypertension I10 Assessments Encounter Date Diagnosis (ICD Code) Assessment Notes Treatment Notes Treatment Clinical Notes Section Notes 05/18/2024 Pure hypercholesterolemia (ICD-10 - E78.00) 05/18/2024 Hyperglycemia (ICD-1 0 - R73.9) 05/18/2024 Essential hypertensi on (ICD-10 - I10) Plan Of Treatment Pending Test Test Name Order Date CBC Venipuncture (in house) 05/18/2024 P-Comprehensive Metabolic Panel (CMP) P-Magnesium 05/18/2024 Next Appt Details Provider Name:Issa daigle, 03/22/2025 02:15:00 PM, [address], [address], [place], [phone], Provider Name:Beverley elena, 04/08/2025 10:00:00 AM, [address] [place] [address], [address], [place], [phone], Progress Notes * Lawrence CARRDOB:07/1954 (70 yo M)Acc No.[id number]:05/18/2024 Patient: Julieta EspanaLawrence GARAY Provider: TARIQ Arguelles :1955 A ge:69 Y S ex:Male Date:05/18/2024 Address:[address] [address] [address], [place], [id number] Pcp:Ap Singleton Subjective: * Chief Complaints: * 1 . Lab draw. * Medical History: * Medications: T aking Lidocaine-Hydrocortisone Chester 3-2.5 % Kit apply rectally 2 times a day , Taking Omeprazole [...] three times a day as needed , Taking Voquezna 10 MG Tablet 1 tablet Orally Once a day , Taking Aspirin 81 MG Tablet Delayed Release 1 tab(s) orally every other day , Taking Tamsulosin HCl 0.4 MG Capsule TAKE 1 CAPSULE BY MOUTH ONCE DAILY AT BEDTIME FOR 90 DAYS , Taking Irbesartan 150 MG Tablet 1 tab(s) orally once a day , Taking Sulindac 200 MG Tablet 1 tab(s) orally 2 times a day , Taking oxyBUTYnin Chloride ER 10 MG Tablet Extended Release 24 Hour 1 tablet Orally Once a day , Medication List reviewed and reconciled with the patient Objective: * Vitals: Assessment: * Assessment: 1. P ure hypercholesterolemia - E78.00 (Primary) 2 . H yperglycemia - R73.9? 3. E ssential hypertension - I10 Plan: * Treatment: Value Reference Range C holesterol / HDL Ratio 4.47 0.00-4.99 - Ratio * C holesterol 210 H <200 - mg/dL * H DL Cholesterol 47 >39 - mg/dL * L DL Cholesterol (Calculation) 141 H <130 - mg/d L * L DL/HDL Ratio 3.0 <3.3 - Ratio * N on-HDL Cholesterol 163 H <130 - mg/dL * T riglycerides 109 <150 - mg/dL * Beverley Franz 06/05/2024 2:27:57 PM > , see office visit note 2.?Hyperglycemia?LAB: Glycohemoglobin A1c (in house) (Collection Date & Time - 05/22/2024)* Samantha Ding 05/19/2024 2:26: 11 PM > a1c, cbc, cmp and Mg not drawn, please contact patient for redraw.Negrita Lubin 05/23/2024 3:09:16 PM > Pt came back on 05/22/2024 for A1C 3.?Essential hypertension?LAB: CBC Venipuncture (in house) ?LAB: P-Comprehensive Metabolic Panel (CMP) ?LAB: P-Magnesium * Images: Billing Information: * Visit Code: * Procedure Codes: * Electronic signature of Wen Franz APRN on 03/22/2025 at 02:16 PM EST Sign off status: Pending * Provider: TARIQ Arguelles Date: 0 05/18/2024 Generated for Dutch potter/Denis/Joan on: 1 05/23/2024 02:16 PM EST
--- OUTSIDE RECORDS SUMMARY | 2024-05-22 04:15 | XMS_ITS ---
Author Organization [facility] Address [address] [place] [phone] Care Team Providers Care Help Desk Rep Name Role Phone Ap Singleton Primary Care Provider [phone] FranzBennett elenaine Unavailable [phone] Results Component Value Reference Range Notes Glycohemoglobin A1c (in hous e) Reviewed date:06/05/2024 02:27:41 PM Interpretation:5.2 Performing Lab: Notes/Report: 5.2 glycohemoglobin 5.2% 5 - 6.5 % REASON FOR VISIT finger stick Medications Medication SIG (Take, Route, Frequency, Duration) Notes Start Date End Date Status oxyBUTYnin Chloride ER 10 MG 1 tablet Orally Once a day Active Sulindac 200 MG 1 tab(s) orally 2 ti mes a day Active Aspirin 81 MG 1 tab(s) orally ever y other day Active Irbesartan 150 MG 1 tab(s) orally once a day Active Tamsulosin HCl 0.4 MG TAKE 1 CAPSULE BY MOUTH ONCE DAILY AT BEDTIME FOR 90 DAYS Active Omeprazole 40 MG take 1 capsule by [facility] once daily 30 minutes before morning meal Orally Once a day; Duration: 90 days Active Lidocaine-Hydrocortisone Chester 3-2.5 % apply rectally 2 times a day 01/05/2021 Active Benzonatate 200 MG 1 capsule as needed Orally three times a day as needed 04/27/2024 Active HYDROcodone Bit-Homatrop MBr 5-1.5 MG/5ML 5 ml as needed Orally four times a day as needed 04/27/2024 Active Voquezna 10 MG 1 tablet Orally Once a day; Duration: 30 day(s) 05/15/2024 Active Encounters Encounter Location Date Provider Diagnosis [facility] [address] [facility] [address] [facility] [address] [place] [id number] 05/22/2024 Beverley Franz Hyperglycemia R73.9 Assessments Encounter Date Diagnosis (ICD Code) Assessment Notes Treatment Notes Treatment Clinical Notes Section Notes 05/22/2024 Hyperglycemia (ICD-10 - R73.9) Plan Of Treatment Next Appt Details Provider Name:Issa daigle, 03/22/2025 02:15:00 PM, [address] [facility] [address] [facility], [address], [place], [phone], Provider Name:Beverley Chelle elena, 04/08/2025 10:00:00 AM, [address] [facility] [address] [facility], [address], [place], [phone], Progress Notes * Lawrence CARRDOB:07/1954 (70 yo M)Acc No.[id number]:05/22/2024 Patient: Julieta Lawrence MEJIA Provider: TARIQ Arguelles :1955 A ge:69 Y S ex:Male Date:05/22/2024 Address:[address] [place] [address], [place], [id number] Pcp:Ap Singleton Subjective: * Chief Complaints: * 1 . Finger stick. * Medical History: * Medications: T aking [...] Objective: * Vitals: Assessment: * Assessment: 1. H yperglycemia - R73.9 (Primary) Plan: * Treatment: Value Reference Range g lycohemoglobin 5.2% 5 - 6.5 % * Negrita Lubin 05/22/2024 9:01:22 AM >Beverley Franz 06/05/2024 2:27:26 PM > , see office visit note * Procedure Codes: 3 6416 CAPILLARY BLOOD DRAW, 19555 GLYCATED HEMOGLOBIN TEST, Modifiers: QW , 3044F HG A1C LEVEL LT 7.0% * Images: Billing Information: * Visit Code: * Procedure Codes: 61413 CAPILLARY BLOOD DRAW. 70516 GLYCATED HEMOGLOBIN TEST. Modifiers: QW 3044F HG A1C LEVEL LT 7.0%. * Electronic signature of Wen Franz APRN on 03/22/2025 at 02:17 PM EST Sign off status: Pending * Provider: TARIQ Arguelles Date: 0 05/22/2024 Generated for Dutch potter/Denis/Joan on: 1 05/23/2024 02:17 PM EST
--- OUTSIDE RECORDS SUMMARY | 2024-06-05 04:45 | XMS_ITS ---
Author Organization [facility] Address [address] [place] [id number] Care Team Providers Care Hoop Puncher Name Role Phone Ap Singleton Primary Care Provider [phone] Beverley Franz Unavailable [phone] Allergies Allergen (clinical drug ingredient) Drug/Non Drug Allergy documented on EMR Reaction Allergy Type Onset Date Status erythromycin Erythromycin Unknown Drug Allergy A ctive atorvastatin Atorvastatin Unknown Drug Allergy A ctive Results Component Value Reference Range Notes P-Comprehensive Metabolic Pa caleb (CMP) Reviewed date:06/06/2024 04:33:36 PM Interpretation:Normal Performing Lab: Notes/Report: Test performed by [facility] [address] [place] [address] , [address], [place] [address] Delmar Jaramillo MD, Wet Machine Tender CLIA: [id number] Sodium 140 135-145 mmol/L Potassium 4.3 3.5-5.3 mmol/L Chloride 105 97-108 mmol/L CO2 25 22-32 mmol/L Glucose 95 65-99 mg/dL BUN 20 8-23 mg/dL Creatinine 1.02 0.70-1.30 mg/dL Calcium 9.3 8.6-10.4 mg/dL eGFR by Creatinine 80 >59 mL/min/1.73m2 Protein 6.8 6.0-8.3 g/dL Albumin 4.4 3.5-5.3 g/dL Alkaline Phosphatase 75 40-129 IU/L ALT (SGPT) 17 <5-55 IU/L AST (SGOT) 17 <5-46 IU/L Bilirubin, Total 0.8 <0.2-1.2 mg/dL A/G Ratio 1.8 1.1-2.5 REASON FOR VISIT 3 week f/u Medications Medication SIG (Take, Route, Frequency, Duration) Notes Start Date End Date Status Lidocaine-Hydrocortisone Chester 3-2.5 % apply rectally 2 times a day 01/05/2021 Active Aspirin 81 MG 1 tab(s) orally ever y other day Active HYDROcodone Bit-Homatrop MBr 5-1.5 MG/5ML 5 ml as needed Orally four times a day as needed 04/27/2024 Not-Taking Omeprazole 40 MG take 1 capsule by [facility] once daily 30 minutes before morning meal Orally Once a day; Duration: 90 days Active Sulindac 200 MG 1 tab(s) orally 2 ti mes a day Active oxyBUTYnin Chloride ER 10 MG 1 tablet Orally Once a day Active Tamsulosin HCl 0.4 MG TAKE 1 CAPSULE BY MOUTH ONCE DAILY AT BEDTIME FOR 90 DAYS Active Irbesartan 150 MG 1 tab(s) orally once a day Active Voquezna 10 MG 1 tablet Orally Once a day; Duration: 30 days 05/15/2024 Active Vital Signs Weight 253.4 lbs 06/05/2024 Blood pressure systolic 126 mm Hg 06/06/19 25 Blood pressure diastolic 78 mm Hg 025 Heart Rate 67 /min 06/05/2024 Height 75.50 in 06/05/2024 BMI 31.25 kg/m2 06/05/2024 Encounters Encounter [facility] Date [facility] [address] [id number] 06/05/2024 Beverley Franz Gastroesophageal reflux disease without esophagitis K21.9 ; Essential hypertension I10 and Pure hypercholesterolemia E78.00 Assessments Encounter Date Diagnosis (ICD Code) Assessment Notes Treatment Notes Treatment Clinical Notes Section Notes 06/05/2024 Gastroesophageal ref lux disease without esophagitis (ICD-10 - K21.9) will try RX to see about cost; will also do without for [id number] to see if cough returns 06/05/2024 Essential hypertensi on (ICD-10 - I10) 06/05/2024 Pure hypercholesterolemia (ICD-10 - E78.00) reviewed Lipids with LDL at 144; discussed low fat/choleste rol diet; he has several dietary changes that he will make; does not want to take a statin due to SE of joint pain; will recheck Lipids after 4 months with dietary changes Plan Of Treatment Medication Medication Name Sig Start Date Stop Date Notes Voquezna 10 MG 1 tablet Orally Once a day; Duration: 30 days 05/15/2024 Treatment Notes Assessment Notes Gastroesophageal reflux dise ase without esophagitis will try RX to see about cost; will also do without for [id number] to see if cough returns Pure hypercholesterolemia reviewed Lipid s with LDL at 144; discussed low fat/cholesterol diet; he has several dietary changes that he will make; does not want to take a statin due to SE of joint pain; will recheck Lipids after 4 months with dietary changes Next Appt Details Follow Up: 4 Months,and prn, Reason: Provider Name:Issa daigle, 03/22/2025 02:15:00 PM, [address], [address], [place], [place], [phone], Provider Name:Beverley elena, 04/08/2025 10:00:00 AM, [address] [facility] [address], [address], [place], [place], [phone], Progress Notes * DANIELLACAROLawrence GUZMANDOB:07/1954 (70 yo M)Acc No.[id number]:06/05/2024 Patient: Lawrence EDWARDS Provider: TARIQ Arguelles :1955 A ge:69 Y S ex:Male Date:06/05/2024 Address:[address], [place] [facility], [id number] Pcp:Ap Singleton Subjective: * Chief Complaints: * 1 . 3 week f/u. * HPI: E NT/respiratory: cough P t sts that his cough has resolved. G astroenterology: Acid Reflux P t presents today for a 3 week follow up. Pt sts that once he started the Voquenza his cough stopped. Pt sts that he is feeling a lot better today than he is in some time. * ROS: D ERMATOLOGY: no R shahnaz. n o H tiara. G ASTROENTEROLOGY: no N ausea. n o V omiting. n o D iarrhea.? M USCULOSKELETAL: Positive for d id well on a golf trip last week. U ROLOGY: no D ifficulty urinating. n o B lood in urine. * Medical History: H ypertension, Esophageal reflux, Arthritis, Diverticulosis, Hemorrhoids, Left rotator cuff tear, s/p surgical repair, BPH, COVID 19. * Surgical History: P ilonidal abcess cyst removal , rotator cuff surgery on L shoulder, Dr. 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 Costello 07/17/2013, Colonoscopy, Dr. Khan 01/15/2020. * Hospitalization/Major Diagno stic Procedure: D iverticulitis 12-17-09, [facility] ER-right arm pain 09/16/18. * Family History: [...] ,Years: , Determination:. * Medications: T aking Lidocaine-Hydrocortisone Chester 3-2.5 % Kit apply rectally 2 times a day , Taking Omeprazole 40 MG Capsule Delayed Release take 1 capsule by mouth once daily 30 minutes before morning meal Orally Once a day , Taking Voquezna 10 MG Tablet 1 [...] 1 tablet Orally Once a day , Not-Taking HYDROcodone Bit-Homatrop MBr 5-1.5 MG/5ML Solution 5 ml as needed Orally four times a day as needed , Discontinued Benzonatate 200 MG Capsule 1 capsule as needed Orally three times a day as needed , Medication List reviewed and reconciled with the patient * Allergies: E rythromycin, Atorvastatin. Objective: * Vitals: W t:253.4, Temp:98.1, BP:126/78, HR:67, O2 Sat:100% on RA, Nurse:KAREEN, Ht: 75.50, BMI:31.25. * Examination: G eneral Examination: General Appearance: NAD, appears healthy, alert, pleasant. H eart: RRR. L ungs: CTAB A&P. N eurologic Exam: alert and oriented. E xtremities: no leg edema. Assessment: * Assessment: 1. G astroesophageal reflux disease without esophagitis - K21.9 (Primary) 2 .?Essential hypertension - I10 3 . P ure hypercholesterolemia - E78.00 ? Plan: * Treatment: 2. E ssential hypertension L AB: P-Comprehensive Metabolic Panel (CMP) (Collection Date & Time - 06/05/2024 09:31 AM) N ormal Value Reference Range A /G Ratio 1.8 1.1-2.5 - * A lbumin 4.4 3.5-5.3 - g/dL * A lkaline Phosphatase 75 40-129 - IU/L * A LT (SGPT) 17 <5-55 - IU/L * A ST (SGOT) 17 <5-46 - IU/L * B ilirubin, Total 0.8 <0.2-1.2 - mg/dL * B UN 20 8-23 - mg/dL * C alcium 9.3 8.6-10.4 - mg/dL * C hloride 105 97-108 - mmol/L * C O2 25 22-32 - mmol/L * C reatinine 1.02 0.70-1.30 - mg/dL * G lucose 95 65-99 - mg/dL * P otassium 4.3 3.5-5.3 - mmol/L * S odium 140 135-145 - mmol/L * P rotein 6.8 6.0-8.3 - g/dL * e GFR by Creatinine 80 >59 - mL/min/1.73m2 * Beverley Franz 06/06/2024 4:33:19 PM > I reported normal results to pt 3.?Pure hypercholesterolemia? Notes: reviewed Lipids with LDL at 144; discussed low fat/cholesterol diet; he has several dietary changes that he will make; does not want to take a statin due to SE of joint pain; will recheck Lipids after 4 months with dietary changes?? * Procedure Codes: G 2211 Complex e/m visit add on, 3074F SYST BP LT 130 MM HG, 3078F DIAST BP < 80 MM HG * Follow Up: 4 Months,and prn * Images: Billing Information: * Visit Code: 96974 Office Visit, Est Pt., Level 3. * Procedure Codes: G2211 Complex e/m visit add on. 3074F SYST BP LT 130 MM HG. 3078F DIAST BP < 80 MM HG. * Electronic signature of Wen Franz APRN on 03/22/2025 at 02:18 PM EST Sign off status: Pending * Provider: TARIQ Arguelles Date: 0 06/05/2024 Generated for Dutch potter/Denis/Elasmitting on: 1 05/23/2024 02:18 PM EST History and Physical Notes * HPI (History of Present Illness) Category Sub-Category Detail Notes Category Not es ENT/respiratory cough Pt sts that his cough has resolved Gastroenterology Acid Reflux Pt presents tod ay for a 3 week follow up. Pt sts that once he started the Voquenza his cough stopped. Pt sts that he is feeling a lot better today than he is in some time Examination Category Sub-Category Detail Notes Category Not es General Examination Heart: RRR Lungs: CTAB A&P Extremities: no leg edema General Appearance: NAD, appears healthy , alert, pleasant Neurologic Exam: alert and oriented
--- OUTSIDE RECORDS SUMMARY | 2024-10-02 04:30 | XMS_ITS ---
Author Organization [facility] Address [address] [facility] [address] [place] [id number] Care Team Providers Care Wood Last Maker Name Role Phone Ap Singleton Primary Care Provider Beverley Franz Unavailable [phone] Allergies Allergen (clinical drug ingredient) Drug/Non Drug Allergy documented on EMR Reaction Allergy Type Onset Date Status erythromycin Erythromycin Unknown Drug Allergy A ctive atorvastatin Atorvastatin Unknown Drug Allergy A ctive Results Component Value Reference Range Notes CBC Fingerstick (in house) Reviewed date:10/02/2024 07:19:47 PM Interpretation: Performing Lab: Notes/Report: wbc 5.4 3.5 - 10 lym 27.6 15 - 50 mid 7.5 2 - 15 gran 64.9 35 - 80 rbc 4.96 3.5 - 5.5 hgb 15.2 11.5 - 16.5 hct 45.7 35 - 55 mcv 92.1 75 - 100 mch 30.7 25 - 35 mchc 33.4 31 - 38 plat 171 100 - 400 REASON FOR VISIT 4 month f/u, Needs PSA Medications Medication SIG (Take, Route, Frequency, Duration) Notes Start Date End Date Status Aspirin 81 MG 1 tab(s) orally every other day Active Tamsulosin HCl 0.4 MG TAKE 1 CAPSULE BY MOUTH ONCE DAILY AT BEDTIME FOR 90 DAYS Active Sulindac 200 MG 1 tab(s) orally 2 times a day Active Lidocaine-Hydrocortison e Chester 3-2.5 % apply rectally 2 times a day 01/05/2021 Active Loratadine 10 MG 1 tablet Orally Once a day Active Irbesartan 150 MG 1 tab(s) orally once a day; Duration: 90 days Active Voquezna 10 MG 1 tablet Orally Once a day; Duration: 30 days has failed PPI Active Tadalafil 5 MG 1 tablet as needed Orally Once a day Active Esomeprazole Magnesium 40 MG 1 capsule 1/2 to 1 hour before morning meal Orally Once a day; Duration: 30 days 06/08/2024 Active oxyBUTYnin Chloride ER 10 MG 1 tablet Orally Once a day Active Problems Problem Type SNOMED Code ICD Code Onset Dates Problem Status W/U Status Risk Notes Problem Environmental allergy (846381018) Environmental allergies (Z91.048) Active confirmed Problem Body mass index 30+ - obesity (956282575) BMI 30.0-30.9,adult (Z68.30) Active confirmed Vital Signs Weight 247 lbs 10/02/2024 Blood pressure systolic 130 mm Hg 10/03/19 25 Blood pressure diastolic 76 mm Hg 025 Heart Rate 64 /min 10/02/2024 Height 75.50 in 10/02/2024 BMI 30.46 kg/m2 10/02/2024 Encounters Encounter Location Date Provider Diagnosis [facility] [address] [facility] [address] [place], [place] [phone] 10/02/2024 Beverley Franz Gastroesophageal ref lux disease without esophagitis K21.9 ; Environmental allergies Z91.048 ; Reflux K21.9 ; Acute diarrhea R19.7 ; Lesion of skin of nose L98.9 and BMI 30.0-30.9,adult Z68.30 Assessments Encounter Date Diagnosis (ICD Code) Assessment Notes Treatment Notes Treatment Clinical Notes Section Notes 10/02/2024 Gastroesophageal reflux disease without esophagitis (ICD-10 - K21.9) will try RX to see about cost; will also do without for [id number] to see if cough returns 10/02/2024 Environmental allergies (ICD-10 - Z91.048) to add OTC Flonase daily; has been taking claritin QOD and will take daily 10/02/2024 Reflux (ICD-10 - K21.9) will do GI consult 10/02/2024 Acute diarrhea (ICD-10 - R19.7) encouraged bland diet until diarrhea ceases 10/02/2024 Lesion of skin of nose (ICD-10 - L98.9) has derm appt 12/2024 ; reinforced use of sun screen; he does play alot of golf 10/02/2024 BMI 30.0-30.9,adult (ICD-10 - Z68.30) Plan Of Treatment Medication Medication Name Sig Start Date Stop Date Notes Loratadine 10 MG 1 tablet Orally Once a day Voquezna 10 MG 1 tablet Orally Once a day; Duration: 30 days has failed PPI Treatment Notes Assessment Notes Gastroesophageal reflux dise ase without esophagitis will try RX to see about cost; will also do without for zohei2nysh to see if cough returns Environmental allergies to add OTC Flona se daily; has been taking claritin QOD and will take daily Reflux will do GI consult Acute diarrhea encouraged bland t until diarrhea ceases Lesion of skin of nose has derm appt 2024 ; reinforced use of sun screen; he does play alot of golf Next Appt Details Follow Up: 6 Months,and prn, Reason: Provider Name:Issa daigle, 03/22/2025 02:15:00 PM, [address] [facility] [address] [facility], [address], [place], [place], [phone], Provider Name:Beverley elena, 04/08/2025 10:00:00 AM, [address] [facility] [address] [facility], [address], [place], [place], [phone], Progress Notes * Lawrence CARRDOB:07/1954 (70 yo M)Acc No.[id number]:10/02/2024 Progress Notes Patient: Pk EDWARDSmond Provider: TARIQ Arguelles :1955 A ge:69 Y S ex:Male Date:10/02/2024 Address:[address] [facility] [address] [facility] [address], [id number] Pcp:Ap Singleton Subjective: * Chief Complaints: * 1 . 4 month f/u. 2. Needs PSA. * HPI: H PI: Patient is here today for P t here for a f/u. Pt is fasting. Pt states he has been having diarrhea for 3 days. Pt has a spot on his right side of his nose. Pt states not sure what it is. Pt states it does not hurt. * ROS: A LLERGY: Runny nose y es. S cratchy throat y es. I tchy eyes yes. S inus congestion y es. R ESPIRATORY: no S hortness of breath. n o C hest pain. ? C ARDIOLOGY: no D izziness. n o C hest pain. C ONSTITUTIONAL: Loss of appetite y es. n o F ever. F atigue? yes. E NDOCRINOLOGY: Fatigue y es. E NT: Cold y es. S ore throat y es. n o R inging in ears. S inus pain yes. G ASTROENTEROLOGY: no N ausea. n o V omiting. D iarrhea y es,?He describes stools as being loose; 1-2 stools per day; no blood or black stools. ? U ROLOGY: Positive for H as been seen by Dr. Vargas and was started on Oxybutynin which has resolved his nocturia. n o D ifficulty urinating. n o B lood in urine. l esion on right side of nose. * Medical History: H ypertension, Esophageal reflux, [...] Hospitalization/Major Diagno stic Procedure: D iverticulitis 12-17-09, [facility] ER-right arm pain 09/16/18. * Family [...] ,Years: , Determination:. * Medications: T aking Loratadine 10 MG Tablet 1 tablet Orally Once a day , Taking Tadalafil 5 MG Tablet 1 tablet as needed Orally Once a day , Taking Lidocaine-Hydrocortisone Chester 3-2.5 % Kit apply rectally 2 times a day , Taking Aspirin 81 MG Tablet Delayed Release 1 tab(s) orally every other day , Taking Tamsulosin HCl 0.4 MG Capsule TAKE 1 CAPSULE BY MOUTH ONCE DAILY AT BEDTIME FOR 90 DAYS , Taking Sulindac 200 MG Tablet 1 tab(s) orally 2 times a day , Taking oxyBUTYnin Chloride ER 10 MG Tablet Extended Release 24 Hour 1 tablet Orally Once a day , Taking Esomeprazole Magnesium 40 MG Capsule Delayed Release 1 capsule 1/2 to 1 hour before morning meal Orally Once a day , Taking Irbesartan 150 MG Tablet 1 tab(s) orally once a day , Discontinued Omeprazole 40 MG Capsule Delayed Release take 1 capsule by mouth once daily 30 minutes before morning meal Orally Once a day , Discontinued Voquezna 10 MG Tablet 1 tablet Orally Once a day , Discontinued HYDROcodone Bit-Homatrop MBr 5-1.5 MG/5ML Solution 5 ml as needed Orally four times a day as needed , Medication List reviewed and reconciled with the patient * Allergies: E rythromycin, Atorvastatin. Objective: * Vitals: W t: 247, Temp: 97.9, BP: 130/76, HR: 64, Nurse: pe, Ht: 75.50, BMI:30.46. * Examination: G eneral Examination: General Appearance: N AD, alert, pleasant. H EENT: P ERRLA, EOM's with normal ROM. H eart: R RR, no murmurs. L ungs: n ormal, clear to auscultation. A bdomen: n ormal, bowel sounds present. N eurologic Exam: a lert and oriented. S kin: b rown slightly raised spot on right bridge of the nose; dry. P eripheral pulses: n ormal (2+) bilaterally. E xtremities: n ormal, no leg edema. N fariha, Thyroid : n o thyromegaly. E NT/Respiratory: Eyes: b oth eyes injected. E ars: R TM dull, diminished light reflex. O ral cavity : e rythema without exudate on pharynx. N fariha : n o cervical lymphadenopathy. Assessment: * Assessment: 1. E nvironmental allergies - Z91.048 (Primary) 2 . G astroesophageal reflux disease without esophagitis - K21.9 3 . R eflux - K21.9 4 .?Acute diarrhea - R19.7 5 . L esion of skin of nose - L98.9 6 . B CA 30.0-30.9,adult - Z68.30 Plan: * Treatment: Value Reference Range w bc 5.4 3.5 - 10 * l ym 27.6 15 - 50 * m id 7.5 2 - 15 * g ran 64.9 35 - 80 * r bc 4.96 3.5 - 5.5 * h gb 15.2 11.5 - 16.5 * h ct 45.7 35 - 55 * m cv 92.1 75 - 100 * m ch 30.7 25 - 35 * m chc 33.4 31 - 38 * p lat 171 100 - 400 * Henrietta Donohue 10/02/2024 11 :02:49 AM EDT > Provider reviewed results while patient in office.Beverley Franz 10/02/2024 07:19:42 PM EDT > Notes: to add OTC Flonase daily; has been taking claritin QOD and will take daily??2.?Gastroesophageal reflux disease without esophagitis? Start Voquezna Tablet, 10 MG, 1 tablet, Orally, Once a day, 30 days, 30 Tablet, Refills 5, Notes toPharmacist: has failed PPI.?? Notes: will try RX to see about cost; will also do without for [id number] to see if cough returns ?3.?Reflux? Notes: will do GI consult??4.?Acute diarrhea? Notes: encouraged bland diet until diarrhea ceases??5.?Lesion of skin of nose? Notes: has derm appt 12/2024 ; reinforced use of sun screen; he does play alot of golf?? * Procedure Codes: G 2211 Complex e/[place], [address] CAPILLARY BLOOD DRAW, 28606 CBC WITH AUTO DIFF, 1036F TOBACCO NON-USER, G8420 BMI<30 AND >=22 CALC & DOCU, G8783 BP SCR PRFRM RCMDD DEFIND SCR INTVL, G8752 MOST RECENT SYSTOLIC BP < 140MM HG, G8754 MOST RECENT DIASTOLIC BP < 90MM HG * Follow Up: 6 Months,and prn * Images: Billing Information: * Visit Code: 96953 Office Visit, Est Pt., Level 3. * Procedure Codes: G2211 Complex e/[place]. [address] CAPILLARY BLOOD DRAW. 50718 CBC WITH AUTO DIFF. 1036F TOBACCO NON-USER. G8420 BMI<30 AND >=22 CALC & DOCU. G8783 BP SCR PRFRM RCMDD DEFIND SCR INTVL. G8752 MOST RECENT SYSTOLIC BP < 140MM HG. G8754 MOST RECENT DIASTOLIC BP < 90MM HG. * Electronic signature of Wen Franz APRN on 03/22/2025 at 02:17 PM EST Sign off status: Pending * Provider: TARIQ Arguelles Date: 0 10/02/2024 Generated for Dutch potter/Denis/Aleishaitting on: 1 05/23/2024 02:17 PM EST History and Physical Notes * HPI (History of Present Illness) Category Sub-Category Detail Notes Category Not es HPI Patient is here today for Pt her e for a f/u. Pt is fasting. Pt states he has been having diarrhea for 3 days. Pt has a spot on his right side of his nose. Pt states not sure what it is. Pt states it does not hurt Examination Category Sub-Category Detail Notes Category Not es ENT/Respiratory Oral cavity : erythema without exudate on pharynx Ears: R TM dull, diminishe d light reflex Neck : no cervical lymphade nopathy Eyes: both eyes injected General Examination HEENT: PERRLA, EOM's with no rmal ROM Neck, Thyroid : no thyromegaly Heart: RRR, no murmurs Lungs: normal, clear to aus cultation Abdomen: normal, bowel sounds present Extremities: normal, no leg edema General Appearance: NAD, alert, pleasant Skin: brown slightly raise d spot on right bridge of the nose; dry Neurologic Exam: alert and oriented Peripheral pulses: normal (2+) bilatera lly
--- OUTSIDE RECORDS SUMMARY | 2024-10-03 10:00 | XMS_ITS ---
Author Organization [facility] Address [address] [place] [id number] Care Team Providers Care Housing Case Manager Name Role Phone Ap Singleton Primary Care Provider [phone] Reena Spears Unavailable [phone] Allergies Allergen (clinical drug ingredient) Drug/Non Drug Allergy documented on EMR Reaction Allergy Type Onset Date Status erythromycin Erythromycin Unknown Drug Allergy A ctive atorvastatin Atorvastatin Unknown Drug Allergy A ctive Results Component Value Reference Range Notes TEN-stool panel Reviewed date:10/08/2024 12:04:04 PM Interpretation:C. Coli and C. Jejuni Performing Lab: Notes/Report: C. Coli and C. Jejuni X ray : Hand, left Reviewed date:10/04/2024 01:45:04 PM Interpretation: Performing Lab: Notes/Report: X ray : Orbits, bilateral Reviewed date:10/04/2024 01:45:04 PM Interpretation: Performing Lab: Notes/Report: X ray : Wrist, left Reviewed date:10/04/2024 01:45:04 PM Interpretation: Performing Lab: Notes/Report: REASON FOR VISIT fell last night Medications Medication SIG (Take, Route, Frequency, Duration) Notes Start Date End Date Status Tadalafil 5 MG 1 tablet as needed Orally Once a day Active Lidocaine-Hydrocortisone [place] 3-2.5 % apply rectally 2 times a day 01/05/2021 Active Loratadine 10 MG 1 tablet Orally Once a day Active Cyclobenzaprine HCl 5 MG 1 tablet at bed time as needed Orally Once a day; Duration: 30 days 10/03/2024 Active Aspirin 81 MG 1 tab(s) orally every other day Active Irbesartan 150 MG 1 tab(s) orally once a day; Duration: 90 days Active Voquezna 10 MG 1 tablet Orally Once a day; Duration: 30 days has failed PPI Active oxyBUTYnin Chloride ER 10 MG 1 tablet Orally Once a day Active Esomeprazole Magnesium 40 MG 1 capsule 1/2 to 1 hour before morning meal Orally Once a day; Duration: 30 days 06/08/2024 Active Sulindac 200 MG 1 tab(s) orally 2 times a day Active Tamsulosin HCl 0.4 MG TAKE 1 CAPSULE BY MOUTH ONCE DAILY AT BEDTIME FOR 90 DAYS Active Vital Signs Weight 247.8 lbs 10/03/2024 Blood pressure systolic 132 mm Hg 10/04/19 25 Blood pressure diastolic 86 mm Hg 025 Heart Rate 67 /min 10/03/2024 Height 75.50 in 10/03/2024 BMI 30.56 kg/m2 10/03/2024 Encounters Encounter Location Date Provider Diagnosis [facility] [address] [facility] [address] [facility] [address] [place] [id number] 10/03/2024 Reena Spears Diarrhea of presumed infectious origin R19.7 ; Injury of left hand, initial encounter S69.92XA ; Left orbit trauma, initial encounter S05.92XA and Muscle spasms of neck M62.838 Assessments Encounter Date Diagnosis (ICD Code) Assessment Notes Treatment Notes Treatment Clinical Notes Section Notes 10/03/2024 Diarrhea of presumed infectious origin (ICD-10 - R19.7) 10/03/2024 Injury of left hand, initial encounter (ICD-10 - S69.92XA) 10/03/2024 Left orbit trauma, initial encounter (ICD-10 - S05.92XA) 10/03/2024 Muscle spasms of neck (ICD-10 - M62.838) Plan Of Treatment Medication Medication Name Sig Start Date Stop Date Notes Cyclobenzaprine HCl 5 MG 1 tablet at bed time as needed Orally Once a day; Duration: 30 days 10/03/2024 Next Appt Details Follow Up: via phone to repo rt test results, Reason: Provider Name:Issa daigle, 03/22/2025 02:15:00 PM, [address] [facility] [address] [facility], [address], [place], [id number], Provider Name:Beverley elena, 04/08/2025 10:00:00 AM, [address], [address], [place], [place], [id number], Progress Notes * Lawrence CARRDOB:07/1954 (70 yo M)Acc No.[id number]:10/03/2024 Progress Notes Patient: Lawrence EDWARDS Provider: YANCI Caro :1955 A ge:69 Y S ex:Male Date:10/03/2024 Address:[address] [place], [id number] Pcp:Ap Singleton Subjective: * Chief Complaints: * 1 . Fell last night. * HPI: P ain: Pt states he fell last night playing pickleball. Pt states that he tried caching himself with his left arm and now his left hand and wrist hurt. Pt states that his upper back hurts as well. Pt states he did hit his face. Pt states he been icing his hand and arm today and its been better. G astroenterology: c/o Diarrhea H as had watery diarrhea for 4-5 days. Denies : Abdominal Pain. D enies : Vomiting. * ROS: D ERMATOLOGY: no R shahnaz. [...] Hospitalization/Major Diagno stic Procedure: D iverticulitis 12-17-09, [facility] ER-right arm pain 09/16/18. * [...] ,Years: , Determination:. * Medications: T aking Tadalafil 5 MG Tablet 1 tablet as [...] tab(s) orally once a day , Taking Voquezna 10 MG Tablet 1 tablet Orally Once a day , Notes to Pharmacist: has failed PPI, Taking Loratadine 10 MG Tablet 1 tablet Orally Once a day , Medication List reviewed and reconciled with the patient * Allergies: E rythromycin, Atorvastatin. Objective: * Vitals: W t: 247.8, Temp: 000, BP: 132/86, HR: 67, Nurse: pe, Ht: 75.50, BMI:30.56. * Examination: G eneral Examination: General Appearance: N AD. H EENT: s clera and conjunctiva clear, PERRLA, TM's normal, translucent, EOM's with normal ROM, left orbit with ecchymosis and tenderness along the bottom. O ral cavity: n o lesions, mucosa moist and WNL, no erythema. Neck: s upple, no lymphadenopathy. C hest: n ormal shape and expansion. H eart: R SR. L ungs: c lear to auscultation. A bdomen: b owel sounds present, soft and nontender. N eurologic Exam: I ntact, gait normal. S kin: n ormal, no rash. P eripheral pulses: n ormal (2+) bilaterally. B ack: n o spinal tenderness, there is ttp along the thoracic paraspinal muscles with spasm present. E xtremities: n o leg edema, there is tenderness along the left wrist and last 2 metacarpal bones, pain with flexion and extension of the wrist, no ttp along the elbow or shoulder. Assessment: * Assessment: 1. D iarrhea of presumed infectious origin - R19.7 (Primary) 2 . I njury of left hand, initial encounter - S69.92XA 3 . L eft orbit trauma, initial encounter - S05.92XA 4 . M uscle spasms of neck - M62.838 Plan: * Treatment: 2.?Injury of left hand, initial encounter?Imaging: X ray : Hand, left (Performed Date - 10/03/2024)* Reena Spears 10/04/2024 0 1:44:56 PM EDT >see TE ?Imaging: X ray : Wrist, left (Performed Date - 10/03/2024)* Reena Spears 10/04/2024 0 1:44:56 PM EDT >see TE 3.?Left orbit trauma, initial encounter?Imaging: X ray : Orbits, bilateral (Performed Date - 10/03/2024)* Reena Spears 10/04/2024 0 1:44:56 PM EDT >see TE 4.?Muscle spasms of neck? Start Cyclobenzaprine HCl Tablet, 5 MG, 1 tablet at bedtime as needed, Orally, Once a day, 30 days,30, Refills 0.?? * Procedure Codes: G 2211 Complex e/m visit add on, 1036F TOBACCO NON-USER, G4068 BP SCR PRFRM RCMDD DEFIND SCR INTVL, G8752 MOST RECENT SYSTOLIC BP < 140MM HG, G8754 MOST RECENT DIASTOLIC BP < 90MM HG * Follow Up: v ia phone to report test results * Images: Billing Information: * Visit Code: 37658 Office Visit, Est Pt., Level 4. * Procedure Codes: G2211 Complex e/m visit add on. 1036F TOBACCO NON-USER. G8783 BP SCR PRFRM RCMDD DEFIND SCR INTVL. G8752 MOST RECENT SYSTOLIC BP < 140MM HG. G8754 MOST RECENT DIASTOLIC BP < 90MM HG. * Electronic signature of YANCI Dixon on 03/22/2025 at 02:18 PM EST Sign off status: Pending * Provider: YANCI Caro Date: 0 10/03/2024 Generated for TELiBrahmai ng/Fagelaciog/eTransmitting on: 1 05/23/2024 02:18 PM EST History and Physical Notes * HPI (History of Present Illness) Category Sub-Category Detail Notes Category Not es Gastroenterology Vomiting Abdominal Pain Diarrhea Has had watery diarr hea for 4-5 days Pain Pt states he fe ll last night playing pickleball. Pt states that he tried caching himself with his left arm and now his left hand and wrist hurt. Pt states that his upper back hurts as well. Pt states he did hit his face. Pt states he been icing his hand and arm today and its been better Examination Category Sub-Category Detail Notes Category Not es General Examination HEENT: sclera and c onjunctiva clear, PERRLA, TM's normal, translucent, EOM's with normal ROM, left orbit with ecchymosis and tenderness along the bottom Heart: RSR Lungs: clear to auscultatio n Abdomen: bowel sounds present , soft and nontender Extremities: no leg edema, there is tenderness along the left wrist and last 2 metacarpal bones, pain with flexion and extension of the wrist, no ttp along the elbow or shoulder General Appearance: NAD Skin: normal, no rash Neurologic Exam: Intact, gait normal Neck: supple, no lymphaden opathy Oral cavity: no lesions, mucosa m oist and WNL, no erythema Peripheral pulses: normal (2+) bilatera lly Back: no spinal tenderness , there is ttp along the thoracic paraspinal muscles with spasm present Chest: normal shape and exp ansion
--- OUTSIDE RECORDS SUMMARY | 2024-10-04 05:00 | XMS_ITS ---
Author Organization [facility] Address [address] [facility] [address] [facility] [address] [place] [id number] Care Team Providers Care Replenishment Specialist Name Role Phone Ap Singleton Primary Care Provider Reena Spears [phone] REASON FOR VISIT stool sample Medications Medication SIG (Take, Route, Frequency, Duration) Notes Start Date End Date Status Esomeprazole Magnesium 40 MG 1 capsule 1/2 to 1 hour before morning meal Orally Once a day; Duration: 30 days 06/08/2024 Active Cyclobenzaprine HCl 5 MG 1 tablet at bed time as needed Orally Once a day; Duration: 30 days 10/03/2024 Active Loratadine 10 MG 1 tablet Orally [...] tab(s) orally 2 times a day Active Lidocaine-Hydrocortisone [place] 3-2.5 % apply rectally 2 times a day 01/05/2021 Active Aspirin 81 MG 1 tab(s) orally every other day Active Tadalafil 5 MG 1 tablet as needed Orally Once a day Active Encounters Encounter Location Date Provider Diagnosis [facility] [address] [facility] [address] [place] [id number] 10/04/2024 Reena Spears Plan Of Treatment Next Appt Details Provider Name:Issa Segundo ry, 03/22/2025 02:15:00 PM, [address] [facility] [address], [place], [phone], Provider Name:Beverley elena, 04/08/2025 10:00:00 AM, [address] [facility] [address], [place], [phone], Progress Notes * Lawrence CARRDOB:07/1954 (70 yo M)Acc No.[id number]:10/04/2024 Patient: Julieta Lawrence MEJIA Provider: YANCI Caro :1955 A ge:69 Y S ex:Male Date:10/04/2024 Address:[address] [place] [address] [address] , [facility] Pcp:Ap Singleton Subjective: * Chief Complaints: * 1 . Stool sample. * Medical History: * Medications: T aking Tadalafil 5 MG [...] tablet Orally Once a day , Taking Cyclobenzaprine HCl 5 MG Tablet 1 tablet at bedtime as needed Orally Once a day , Medication List reviewed and reconciled with the patient Objective: * Vitals: Assessment: Plan: * Treatment: * Images: Billing Information: * Visit Code: * Procedure Codes: * Electronic signature of YANCI Dixon on 03/22/2025 at 02:17 PM EST Sign off status: Pending * Provider: YANCI Caro Date: 0 10/04/2024 Generated for Dutch potter/Denis/Joan on: 1 05/23/2024 02:17 PM EST
--- OUTSIDE RECORDS SUMMARY | 2024-12-26 05:30 | XMS_ITS ---
Author Organization [facility] Address [address] [place] [id number] Care Team Providers Care Storekeeper Helper Name Role Phone Ap Singleton Primary Care Provider Reena Spears Unavailable [phone] Allergies Allergen (clinical drug ingredient) Drug/Non Drug Allergy documented on EMR Reaction Allergy Type Onset Date Status erythromycin Erythromycin Unknown Drug Allergy A ctive atorvastatin Atorvastatin Unknown Drug Allergy A ctive Reason For Referral Diagnosis 1 Ganglion cyst (M67.4 0) Referral Organization [facility] Referring Provider First Name Reena Referring Provider Last Name Regan Referring Provider Speciality Physician Segmental Paving Supervisor Referred Provider Specialty Orthopedic S urgery General Notes Reena Spears 03/2024 11:11:16 AM >Needs an appt with Alix Rowland Brynn 12/26/2024 11:24:52 AM > faxed to [facility] Referral Priority Routine Diagnosis 1 Ptosis, bilateral (H 02.403) Referral Organization [facility] Referring Provider First Name Reena Referring Provider Last Name Regan Referring Provider Speciality Physician Segmental Paving Supervisor Referred Provider Specialty Ophthalmolog y General Notes Reena Spears 03/2024 01:32:09 PM >Needs to see someone in [facility] 12/26/2024 02:07:06 PM > faxed to [facility] Referral Priority Routine REASON FOR VISIT lump on rt wrist, tendon behind LT knee Medications Medication SIG (Take, Route, Frequency, Duration) Notes Start Date End Date Status Sulindac 200 MG Take 1 tablet by kvng th twice daily; Duration: 90 Active Irbesartan 150 MG 1 tab(s) orally once a day; Duration: 90 days Active Loratadine 10 MG 1 tablet Orally Once a day Active Esomeprazole Magnesium 40 MG 1 capsule 1/2 to 1 hour before morning meal Orally Once a day; Duration: 30 days 06/08/2024 Active Tamsulosin HCl 0.4 MG TAKE 1 CAPSULE BY MOUTH ONCE DAILY AT BEDTIME FOR 90 DAYS Active Aspirin 81 MG 1 tab(s) orally ever y other day Active Tadalafil 5 MG 1 tablet as needed O rally Once a day Active Immunizations Vaccine Route Administration Date Status Comme nts Fluzone High Dose (65yr and older) IM Intramuscular 12/26/2024 Administered Vital Signs Weight 243.8 lbs 12/26/2024 Blood pressure systolic 110 mm Hg 12/27/19 25 Blood pressure diastolic 60 mm Hg 025 Heart Rate 70 /min 12/26/2024 Height 75.50 in 12/26/2024 BMI 30.07 kg/m2 12/26/2024 Encounters Encounter Location Date Provider Diagnosis [facility] [address] [facility] [address] [place], [place] [id number] 12/26/2024 Reena Crowdy Ganglion cyst M67.40 ; Dry mouth R68.2 ; Ptosis, bilateral H02.403 and Encounter for immunization Z23 Assessments Encounter Date Diagnosis (ICD Code) Assessment Notes Treatment Notes Treatment Clinical Notes Section Notes 12/26/2024 Ganglion cyst (ICD-10 - M67.40) 12/26/2024 Dry mouth (ICD-10 - R68.2) This was due to his oxybutynin and he stopped it. He will call his urologist to see what his next recommendations would be. 12/26/2024 Ptosis, bilateral (ICD-10 - H02.403) 12/26/2024 Encounter for immunization (ICD-10 - Z23) Plan Of Treatment Treatment Notes Assessment Notes Dry mouth This was due to his oxybutynin and he stopped it. He will call his urologist to see what his next recommendations would be. Referrals Referral Date Details 12/26/2024 12/26/2024 12/26/2024 12/26/2024 Next Appt Details Follow Up: With specialists, Reason: Provider Name:Issa daigle, 03/22/2025 02:15:00 PM, [address], [address], [place], [place], [id number], Provider Name:Beverley elena, 04/08/2025 10:00:00 AM, [address], [address], [place], [place], [id number], Progress Notes * Lawrence CARRDOB:07/1954 (70 yo M)Acc No.[id number]:12/26/2024 Progress Notes Patient: Lawrence EDWARDS Provider: YANCI Caro :1955 A ge:69 Y S ex:Male Date:12/26/2024 Address:[address] [place] [address] [address] , [id number] Pcp:Ap Singleton Subjective: * Chief Complaints: * 1 . lump on rt wrist, tendon behind LT knee. * HPI: D ermatology: He also has had issues with his upper eyelids. He feels like he cannot get them open in the am. He has seen an eye doctor and they gave him drops but it doesn't help. Dr. Singleton did check for neurologic disorders and this was negative. 69 year old male presents with c/o knot P t states he has a knot on his right wrist. Pt states it does hurt at times but not always. H PI: Patient is here today for P t states he wants his flu shot.? * ROS: D ERMATOLOGY: no R shahnaz. n o H tiara. G ASTROENTEROLOGY: no N ausea. n o V omiting. n o D iarrhea.? U ROLOGY: no B lood in urine. n o F requent urination. ? * Medical History: H ypertension, Esophageal reflux, [...] Hospitalization/Major Diagno stic Procedure: D iverticulitis 12-17-09, [facility] ER-right arm pain 09/16/18. * Family [...] needed Orally Once a day , Taking Aspirin 81 MG Tablet Delayed Release 1 tab(s) orally every other day , Taking Tamsulosin HCl 0.4 MG Capsule TAKE 1 CAPSULE BY MOUTH ONCE DAILY AT BEDTIME FOR 90 DAYS , Taking Esomeprazole Magnesium 40 MG Capsule Delayed Release 1 capsule 1/2 to 1 hour before morning meal Orally Once a day , Taking Loratadine 10 MG Tablet 1 tablet Orally Once a day , Taking Irbesartan 150 MG Tablet 1 tab(s) orally once a day , Taking Sulindac 200 MG Tablet Take 1 tablet by mouth twice daily , Discontinued Lidocaine-Hydrocortisone [place] 3-2.5 % Kit apply rectally 2 times a day , Discontinued oxyBUTYnin Chloride ER 10 MG Tablet Extended Release 24 Hour 1 tablet Orally Once a day , Discontinued Voquezna 10 MG Tablet 1 tablet Orally Once a day , Notes to Pharmacist: has failed PPI, Discontinued Cyclobenzaprine HCl 5 MG Tablet 1 tablet at bedtime as needed Orally Once a day , Discontinued levoFLOXacin 750 MG Tablet 1 tablet Orally Once a day , Medication List reviewed and reconciled with the patient * Allergies: E rythromycin, Atorvastatin. Objective: * Vitals: W t: 243.8, Temp: 97.7, BP: 110/60, HR: 70, Nurse: pe, Ht: 75.50, BMI:30.07. * Examination: G eneral Examination: General Appearance: N AD. H EENT: s clera and conjunctiva clear, PERRLA, TM's normal, translucent, EOM's with normal ROM. O ral cavity: n o lesions, mucosa moist and WNL, no erythema. N fariha: s upple, no lymphadenopathy. C hest: normal shape and expansion. H eart: R SR. L ungs: c lear to auscultation. A bdomen: b owel sounds present, soft and nontender. N eurologic Exam: I ntact, gait normal. S kin: n ormal, no rash. P eripheral pulses: n ormal (2+) bilaterally. E xtremities: n o leg edema, right volar aspect of the wrist with a tender ganglion cyst. ? Assessment: * Assessment: 1. G anglion cyst - M67.40 (Primary) S pecify :right wrist 2 . D ry mouth - R68.2 3 . P tosis, bilateral - H02.403? 4. E ncounter for immunization - Z23 Plan: * Treatment: 2. D ry mouth Notes: This was due to his oxybutynin and he stopped it. He will call his urologist to see what his next recommendations would be. 3. P tosis, bilateral Referral To:Ophthalmology Reason: * Immunizations: Fluzone High Dose (65yr and older) : 0.5 mL (Route: Intramuscular) given by VELIA Martin , Mine Shifter on Left Deltoid (Encounter for immunization) * Procedure Codes: G 2211 Complex e/m visit add on * Follow Up: [facility] * Images: Billing Information: * Visit Code: 07967 Office Visit, Est Pt., Level 4. * Procedure Codes: G2211 Complex e/m visit add on. * Electronic signature of YANCI Dixon on 03/22/2025 at 02:17 PM EST Sign off status: Pending * Provider: YANCI Caro Date: Generated for Dutch potter/Denis/Aleishaitting on: 05/23/2024 02:17 PM EST History and Physical Notes * HPI (History of Present Illness) Category Sub-Category Detail Notes Category Not es Dermatology knot Pt states he has a knot on his right wrist. Pt states it does hurt at times but not always HPI Patient is here today for Pt states he wa nts his flu shot Examination Category Sub-Category Detail Notes Category Not es General Examination HEENT: sclera and c onjunctiva clear, PERRLA, TM's normal, translucent, EOM's with normal ROM Heart: RSR Lungs: clear to auscultatio n Abdomen: bowel sounds present , soft and nontender Extremities: no leg edema, right volar aspect of the wrist with a tender ganglion cyst General Appearance: NAD Skin: normal, no rash Neurologic Exam: Intact, gait normal Neck: supple, no lymphaden opathy Oral cavity: no lesions, mucosa m oist and WNL, no erythema Peripheral pulses: normal (2+) bilatera lly Chest: normal shape and exp ansion Consultation Request Notes Referral Date Referring Provider Referred Provider Not es 12/26/2024 Reena Spears , 12/26/2024 Reena Spears ,
[2025-03-22] VITALS (13 sets, daily range): BP systolic 150–210; BP diastolic 88–112; PULSE 64–85; RESP 13–20; TEMP 36.7–37; O2SAT 96–100; BMI 31.2
--- NOTE | 2025-03-22 14:14 | ECG_ITS ---
APPROVED REPORT Exam: Resting ECG HR:80 bpm ECG Measurements Heart Rate 80 AXES CA 169 P 56 QRSd 97 QRS 38 QT 383 T 53 QTc 418 Conclusion SINUS RHYTHM NORMAL ECG Electronically signed by : CAROL PARTIDA, 03/23/2025 09:31:41
--- OUTSIDE RECORDS SUMMARY | 2025-03-22 14:17 | XMS_ITS | Continuity of Care Document ---
Author Organization [facility], OPHTHALMOLOGY [facility]AST Address [address] [place] [address] Care Team Providers Care Pipe Out Worker Name Role Phone KORY ANTHONY Primary Care Provider DOT VEGA Referring Provider Assessment No assessment recorded. Plan of Treatment Reminders Order Date Submit Date Provider Last Modified By Organization Details Last Modified Time Details Appointments POST OP GLOBAL 2025 10:00A M KRYSTA BARBOUR PA-C Not available Not available Not available RECHECK 2025 10:00A M KRISTOPHER MOSLEY MD Not available Not available Not available Lab None recorded . Referral None recorded . Procedures None recorded . Surgeries None recorded . Imaging None recorded . Medication Orders None recorded . Patient TargetsNo targets recorded. Patient InstructionsNo instructions recorded. Reason for Referral None Reported. Results Created Date Observation Date Name Description Value Unit Range Abnormal Flag Note LastModifiedBy Organization Detail LastModifiedTime 02/15/2002/20/2025 ACETY LCHL REC AB, BIND acetylchl rec Ab, bind <0.30 nmol/ L normal Refer ence Range s for Acety lchol ine Marine Equipment Sales Engineer tor María ng Antib jimmy: Negat harrison: < or =0.30 nmol/ L Equiv ocal: 0.31- 0.49 nmol/ L Posit harrison: > or =0.50 nmol/ L Not Available [facility] [address] [place], [address], 02/20/2025 02:18:38 02/15/2002/20/2025 STRIA ANNA MUSCL E AB, REFLE X TITER striated muscle Ab, reflex titer NEGATI VE negati ve normal This test was devel oped and its emily tical perfo rmanc e kristian cteri stics have been deter mined by [facility]. It has not been clear ed or appro desmond by the FDA. This assay has been valid ated pursu ant to the CLIA regul ation s and is used for clini ania purpo ses. 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 Recei desmond in forma luzma label ed with the pascual nt's name and desig nated righ t volar carpa l gangl ion cyst is a 1.1 x 0.8 x 0.4 cm kennedy-w jaylen fibro us soft tissu e fragm ent. Secti oning revea ls a cysti c cut surfa ce with no indwe lling debri s. Entir khushboo submi tted in a singl e casse tte label ed A1. MT 02/28 03:01 PM Micro scopi c Descr iptio n: A micro scopi c exami natio n has been perfo rmed and the resul t(s) are as noted above . WARD HUDSON IEArtemio-Alfie GONZALEZ MD Echo d Out Date: 03/01 12:54 Page 1 of 1 Not Available [facility] [address] [place], [address], 03/01/2025 12:54:54 02/16/2002/08/2025 XR, wrist , 3 or more view [facility] [address] [place] [address] [phone] Patigeraldo t Name: LUDA salazar : 956 Patigeraldo t Orderi ng Provid er: GREGORIO KELLY Y EXAM DATE: 2024 EXAM: XR RT WRIST COMPLE TE HISTOR Y: Previo us histor y of cysts. COMPAR ELISEO: None. FINDIN GS: There are mild degene rative change s at the first MCP joint and minima l degene rative change at the trisca phe joint and radioc arpal joint. IMPRES LIVAN: Minima l to mild degene rative change s as descri bed. Interp reted By: Christine de la torre MD Electr onical ly Signed By: Christine de la torre MD on 2024 8:41 AM [facility] [address] [place], [address], 02/15/2025 09:47:49 Result Notes None recorded. 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 Procedures Surgical History Date Name Laterality Status Provider Name and Address Organization Details Recorded Time 02/29/20 25 Op Note completed PRISCILA BOWSER MD [address] [place] [address], [phone], [facility] 02/28/2025 09:52:33 01/10/20 25 Aspiration Ganglion Cyst completed PRISCILA BOWSER MD [address] [place] [address], [address], [facility] 01/09/2025 15:36:18 03/28/19 24 YAG laser posterior capsulotomy completed Mayra Stewart [facility] 02/14/2025 08:24:53 03/28/19 23 cataract extraction and implantation of intraocular lens completed Mayra Stewart [facility] 02/14/2025 08:23:26 procedure on shoulder completed Antonieta Kelly [facility] 06/29/2024 12:21:53 Imaging Results None recorded. Procedure Notes None recorded. Medical Equipment None Reported. Allergies Allergen ID Allergen Name Allergen Category Reaction Reaction Severity Criticality Documentation Date Start Date Code Code System Note Provider Name and Address Organization Details Recorded Time 714465 E-Mycin medicatio n Not available Not available Not available 02/20/2016201460 8 RxNorm Comme nt: Olegario ed By: Aubree schrader Date: 2014 9:49: 34 AM; Not Available [facility] 6 08:11:38 915526 erythromy kyle medicatio n Not available Not available Not available 02/08/2025 4053 RxNorm Not Available [facility] [place] - External Data Service - prod 09:24:18 936389 atorvasta tin medicatio n Not available Not available Not available 02/08/2025 00821 RxNorm muscl e/leg cramp s Mayra Stewart [facility] 5 08:31:02 Medications Name Sig Start Date Stop Date Status Note LastModified by Organization Details LastModified Time hydrocodo ne 5 mg-acetam inophen 325 mg tablet TAKE 1 TAB PO Q 6 HRS PRN FOR SEVERE POST SURGICAL PAIN 03/13 completed Not Available Not Available Not Available omeprazol e 40 mg capsule,d elayed release Take 1 capsule every day by oral route. active Not Available Not Available No t Available tamsulosi n 0.4 mg capsule Take 1 capsule twice a day by oral route. 2024 active Not Available Not Available Not Avai lable Neurontin 100 mg capsule TAKE 1 CAPSULE PO QHS FOR 1 WEEK 03/13 completed Not Available Not Available Not Available irbesarta n 150 mg tablet Take 1 tablet every day by oral route. active Not Available Not Available No t Available cefuroxim e axetil 500 mg tablet Take 1 tablet every 12 hours by oral route. 2024 active not taking Not Available Not Available Not Available sulindac 200 mg tablet Take 1 tablet twice a day by oral route. active sometime s takes once daily Not Available Not Available Not Available TobraDex 0.3 %-0.1 % eye drops,michael pension INSTILL 1 DROP INTO AFFECTED EYE(S) BY OPHTHALM IC ROUTE 4x per day for two weeks, then stop 2024 active Not Available Not Available Not Avai lable valsartan 40 mg tablet 01/09 completed Medicati on Descript ion: valsarta n; refills: 0 Not Available Not Available Not Available tadalafil 5 mg tablet Take 1 tablet every day by oral route. 2024 active Not Available Not Available Not Avai lable loratadin e 01/09 completed Medicati on Descript ion: loratadi ne; refills: 0 Not Available Not Available Not Available magnesium citrate active Not Available Not Available Not Available aspirin active 81 mg aspirin qod Not Available Not Available Not Available Vitamin D3 active Not Available Not Available Not Available lansopraz ole 01/09 completed Medicati on Descript ion: lansopra zole; refills: 0 Not Available Not Available Not Available oxybutyni n 01/09 completed Not Available Not Available Not Available tadalafil active Not Available Not Erika ilable Not Available Systane Nighttime 94 %-3 % eye ointment Use every night in both eyes active Not Available Not Available No t Available loratadin e 10 mg capsule Take by oral route. active Not Available Not Available No t Available mirabegro n ER 50 mg tablet,ex tended release 24 hr Take 1 tablet every day by oral route. 2024 active Not Available Not Available Not Avai lable Gemtesa 75 mg tablet Take by oral route for 90 days. 2024 active Not Available Not Available Not Avai lable Vitals Date Recorded Body height Provider Name an d Address Organization Details Last Updated DateTime 03/12/2025 190.5 cm Madiha Driver [facility] 10:03:08 Social History Question Answer Notes LastModified by [employer] Details LastModified Time Tobacco Smoking Status Never Smoker Ysabel nicole, [facility] 06/29/2024 10:55:36 What Is Your Relationship Status? [email or web address] Information not available 06/29/2024 Sex: Unknown Functional Status Question Answer Note LastModified by [employer] Details LastModified Time How many times per week do you consume alcohol? Less than 1 time per week [email or web address] Information not available 06/29/2024 Do you or have you ever used any other forms of tobacco or nicotine? No [email or web address] Information not available 06/29/2024 What is your level of alcohol consumption? Occasional [email or web address] Information not available 06/29/2024 Are you currently employed? No Information not available 06/29/2024 Mental Status None recorded. Family History Relationship Description Onset Age of this Age Resolved Age Notes LastModified by Organization Details LastModified Time Brother Kidney stone [email or web address] Not av ailable 06/29/2024 10:55:36 Sister Kidney stone [email or web address] Not erika ilable 06/29/2024 10:55:36 Medical History Condition Response Erectile Dysfunction Y Acid Reflux (GERD) Y BPH Y Cancer Y Arthritis Y Seasonal Allergies Y Immunizations Vaccine Type Date Status Note Provider Nam e and Address Organization Details Recorded Time Influenza, split virus, quadrivalent, preservative 9 completed Sudha Glass [facility] 02/08/2025 09:44:34 Influenza, split virus, quadrivalent, preservative 1 completed Sudha Glass [facility] 02/08/2025 09:44:34 Influenza, split virus, quadrivalent, preservative 0 completed Seadriftashley Glass [facility] 02/08/2025 09:44:34 zoster recombinant 4 completed Sudha Glass [facility] 02/08/2025 09:44:34 zoster recombinant 3 completed Sudha Glass [facility] 02/08/2025 09:44:34 COVID-19, mRNA, LNP-S, PF, 100 mcg/0.5mL dose or 50 mcg/0.25mL dose 1 [facility] 09:44:34 COVID-19, mRNA, LNP-S, PF, 100 mcg/0.5mL dose or 50 mcg/0.25mL dose 1 completed Sudha Glass [facility] 02/08/2025 09:44:34 COVID-19, mRNA, LNP-S, PF, 100 mcg/0.5mL dose or 50 mcg/0.25mL dose 2 completed Sudha Glass [facility] 02/08/2025 09:44:34 COVID-19, mRNA, LNP-S, PF, 100 mcg/0.5mL dose or 50 mcg/0.25mL dose 1 [facility] 09:44:34 Pneumococcal conjugate PCV20, polysaccharide SMA568 conjugate, adjuvant, PF 2 completed [facility] 02/08/2025 09:44:34 COVID-19, mRNA, LNP-S, bivalent, PF, 50 mcg/0.5 mL or 25mcg/0.25 mL dose 3 completed [facility] 02/08/2025 09:44:34 COVID-19, mRNA, LNP-S, PF, 50 mcg/0.5 mL 3 completed Seadrift [facility] 02/08/2025 09:44:34 pneumococcal polysaccharide PPV23 7 completed [facility] 02/08/2025 09:44:34 Tdap 8 completed [facility] 02/08/2025 09:44:34 Influenza, split virus, quadrivalent, PF 7 completed [facility] 02/08/2025 09:44:34 Influenza, split virus, quadrivalent, PF 6 completed [facility] 02/08/2025 09:44:34 Influenza, recombinant, trivalent, PF 8 completed [facility] 02/08/2025 09:44:34 Influenza, high-dose, quadrivalent, PF 5 completed Not Available [facility] 03/12/2025 09:59:29 Past Encounters Encounter ID Performer Location Encounter Start Date Encounter Closed Date Diagnosis/Indication Diagnosis SNOMED-CT Code Diagnosis ICD10 Code Diagnosis IMO Codes Diagnosis Note [id number] AMANDEEP TRIPP MD OPHTHALMO LOGY [address] [place] [address] 02/14/2025 07:46:43 02/14/2025 09:20:33 Presbyopia 12358569 H52.4 9453245 - c/w OTC readers as needed Bilateral pseudophakia 0194014960 1518269 Z96.1 9873697 - s/p YAG OU- monitor Tear film insufficiency 37296392 H04.123 12293222 - using: systane ointment qhs OU- possibly contributi ng to difficulty opening eyes symptoms- c/w systane 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 I discussed the patient monitoring for increasing flashes/fl oater/white ge in vision and to call immediatel y for any change in the vision.- Monitor with yearly dilated exam Blephariti s of upper and lower eyelids of bilateral eyes 7099845836 618105 H01.00A H01.00B 30623642 - start lid scrubs- start tobradex QID for 2 weeks then stop Paresis of extraocular muscles 71462192 H05.823 76365305 - difficulty opening eyes at night for past few months- occasional difficulty with swallowing - obtain myasthenia panel- could consider neuro eval in future Bilateral dermatochalasis of upper eyelids 9560583071 7214842 H02.831 H02.834 81929506 - moderate, possibly contributi ng to patient's feeling he cannot open eyes- also component of brow ptosis- treatment of dry eye / blephariti s as above first; obtain myasthenia panel. Consider oculoplast ics referral in future [id number] PRISCILA BOWSER MD SURGERY SCHEDULE [address] [place] [address] 02/28/2025 07:01:33 02/28/2025 07:01:44 [id number] AMANDEEP TRIPP MD OPHTHALMO LOGY [address] [place] [address] 03/12/2025 09:56:50 03/12/2025 10:50:47 Paresis of extraocular muscles 33148547 H05.823 62058022 - difficulty opening eyes at night for past few months- negative myasthenia panel- improved slightly with tobradex regimen: suspect related to combo of dry eye and dermato- monitor for now Tear film insufficiency 86537129 H04.123 78627399 - using: systane ointment qhs OU- contributi ng to difficulty opening eyes symptoms- c/w systane- samples of Restasis, Tyrvaya and Blink omega 3s provided today; patient to sample and call back with what he prefers Blephariti s of upper and lower eyelids of bilateral eyes 0211738858 565828 H01.00A H01.00B 80528087 - improved with tobradex for 2 weeks- stop tobradex- c/w lid scrubs Bilateral dermatochalasis of upper eyelids 8906447237 6714677 H02.831 H02.834 35277566 - moderate, contributi ng to patient's feeling he cannot open eyes- also component of brow ptosis- discussed oculoplast ics referral; pt elects to treat dry eye for now, monitor Bilateral pseudophakia 9966177963 6715785 Z96.1 0712092 - s/p YAG OU- monitor Health Concerns Section Related Observation LastModified by Organization Detai ls LastModified Time None Recorded Concern Status LastModified by Organization Details LastModified Time None Recorded Payers Encounter Date Sequence Insurance Name Policy Number Policy Serna Covered Member ID Serna Member ID Guarantor Name 03/12/2025 1 [place]ICARE[place] Lawrence Walsh [id number] Lawrence Walsh 03/12/2025 2 [facility] Lawrence Walsh [id number] Lawrence Walsh Notes Date Note Type Note Provider Name and Address Organization Details Recorded Time 03/12/2025 text/html ROS as noted in the HPI Eyes are slightly betterStill having some trouble opening eyes at night AMANDEEP TRIPP MD [address] [place], [address], [facility] 03/12/2025 10:41:08
--- OUTSIDE RECORDS SUMMARY | 2025-03-22 14:17 | XMS_ITS | Continuity of Care Document ---
Author Organization [facility], ORTHOPEDICS [address] [place] [address] Care Team Providers Care Greens Tier Name Role Phone ANTHONY HORN Primary Care Provider [phone] DOT VEGA Referring Provider Assessment No assessment [...] recorded . Patient TargetsNo targets recorded. Patient Instructions Encounter Date Encounter Id Patient Instructions Last Modified By Organization Details Last Modified Time 03/13/2025 [id number] Steri-Strips edgar l be placed to help reinforce the incision as it continues to heal. He is encouraged to work on range of motion, still observed no lifting, gripping, pushing, or pulling more than 5 pounds with that hand by itself. He will follow-up in 4 weeks for repeat evaluation. I would like the Steri-Strips to be in place for a period of 3 days, if they are still there after 3 days he can remove them. lucila Not available 03/13/2025 17:28:49 Reason for Referral None Reported. Results Created Date Observation Date Name Description Value Unit Range Abnormal Flag Note LastModifiedBy Organization Detail LastModifiedTime 02/15/20 25 02/20/2025 ACETY LCHL REC AB, BIND acetylchl rec Ab, bind <0.30 nmol/ L normal Refer ence Range s for Acety lchol ine Patient Ombudsperson tor María ng Antib jimmy: Negat harrison: < or =0.30 nmol/ L Equiv ocal: 0.31- 0.49 nmol/ L Posit harrison: > or =0.50 nmol/ L Not Available [facility] [address] [place], [address], 02/20/2025 02:18:38 02/15/2002/20/2025 STRIA ANNA MUSCL E AB, REFLE X TITER striated muscle Ab, reflex titer NEGATI VE negati ve normal This test was devel oped and its emily tical perfo rmanc e kristian cteri stics have been deter mined by [facility] ostjuan josé s. It has not been clear ed or appro desmond by the FDA. This assay has been valid ated pursu ant to the CLIA regul ation s and is used for clini ania purpo ses. Not Available [facility] [address] [place], [address], 02/20/2025 12:30:28 02/29/20 25 02/28/2025 SURGI ANIA surgical SEE BELOW normal Surgi [...] GANGL ION CYST Gross Descr iptio n: Lucero nt name and date of verif ied. Recei desmond in forma luzma label ed with the martíneze nt's name and desig nated righ t volar carpa l gangl ion cyst is a 1.1 x 0.8 x 0.4 cm kennedy-w jaylen fibro us soft tissu e fragm ent. Secti oning revea ls a cysti c cut surfa ce with no indwe lling debri s. Entir khushboo submi tted in a singl ladan limone tte label ed A1. MT 02/28 03:01 PM Micro scopi c Descr iptio n: A micro scopi c exami natio n has been perfo rmed and the resul t(s) are as noted above . WARD ROGERS Marianne GONZALEZ MD Echo d Out Date: 03/01 12:54 Page 1 of 1 Not Available [facility] [address] [place], [address], 03/01/2025 12:54:54 02/16/2002/08/2025 XR, wrist , 3 or more view [facility] [address] [place] [id number] Patien t Name: LUDA GUZMAN Patien t : [phone] [facility] Clinic er: GREGORIO KELLY Y EXAM DATE: 2024 [...] la torre MD on 2024 8:41 AM jarad [facility] [address] [place], [address], 02/15/2025 09:47:49 Result Notes None recorded. Problems Name Problem SNOMED Code Status Onset Date Resolution Date Notes Provider Name and Address Organization Details Recorded Time Presbyopia 62537570 Active 2024 AMANDEEP TRIPP MD [address] [place], [address], [facility] 08:51:14 Tear film insufficien cy 23145584 Active 2024 AMANDEEP TRIPP MD [address] [place] [address], [address], [facility] 08:51:44 Bilateral posterior vitreous detachment 7195588589237 05 Active 2024 AMANDEEP TRIPP MD [address] [place] [address], [address], [facility] 09:01:30 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 Procedures Surgical History Date Name Laterality Status Provider Name and Address Organization Details Recorded Time 02/29/20 25 Op Note completed PRISCILA BOWSER MD [address] [place] [address], [address], [facility] 02/28/2025 09:52:33 01/10/20 25 Aspiration Ganglion Cyst completed PRISCILA BOWSER MD [address] [place] [address], [address], [facility] 01/09/2025 15:36:18 03/28/19 24 YAG laser posterior capsulotomy completed Mayra Stewart [facility] 02/14/2025 08:24:53 03/28/19 23 cataract extraction and implantation of intraocular lens completed Mayra Stewart [facility] 02/14/2025 08:23:26 procedure on shoulder completed Antonieta Kelly [facility] 06/29/2024 12:21:53 Imaging Results None recorded. Procedure Notes None recorded. Medical Equipment None Reported. Allergies Allergen ID Allergen Name Allergen Category Reaction Reaction Severity Criticality Documentation Date Start Date Code Code System Note Provider Name and Address Organization Details Recorded Time 633089 E-Mycin medicatio n Not available Not available Not available 02/20/2016201460 8 RxNorm Comme nt: Olegario ed By: Aubree schrader Date: 2014 9:49: 34 AM; Not Available [facility] 6 08:11:38 203254 erythromy kyle medicatio n Not available Not available Not available 02/08/2025 4053 RxNorm Not Available [place] - External Data Service - prod 09:24:18 665767 atorvasta tin medicatio n Not available Not available Not available 02/08/2025 54065 RxNorm muscl e/leg cramp s Mayra nicole [facility] 08:31:02 Medications Name Sig Start Date Stop [...] Avai lable Vitals Date Recorded Body height Body mass index (BMI) Body weight Provider Name and Address Organization Details Last Updated DateTime 03/13/2025 190.5 cm 30 kg/m2 654477.17 g Chela Colby [facility] 03/13/2025 13:28:37 Social History Question Answer Notes LastModified by Organizat ion Details LastModified Time Tobacco Smoking Status Never Smoker Ysabel nicole, [facility] 06/29/2024 10:55:36 What Is Your Relationship Status? [email or web address] Information not available 06/29/2024 Sex: Unknown Functional Status Question Answer Note LastModified by Organizat ion Details LastModified Time How many times per week do you consume alcohol? Less than 1 time per week Information not available 06/29/2024 Do you or have you ever used any other forms of tobacco or nicotine? No Information not available 06/29/2024 What is your level of alcohol consumption? Occasional [email or web address] Information not available 06/29/2024 Are you currently employed? No [email or web address] Information not available 06/29/2024 Mental Status None recorded. Family History Relationship Description Onset Age of this Age Resolved Age Notes LastModified by Organization Details LastModified Time Brother Kidney stone [email or web address] Not av ailable 06/29/2024 10:55:36 Sister Kidney stone Not erika ilable 06/29/2024 10:55:36 Medical History Condition Response Erectile Dysfunction Y Acid Reflux (GERD) Y BPH Y Cancer Y Arthritis Y Seasonal Allergies Y Immunizations Vaccine Type Date Status Note Provider Nam e and Address Organization Details Recorded Time Influenza, split virus, quadrivalent, preservative 9 completed Sudha Glass [facility] 02/08/2025 09:44:34 Influenza, split virus, quadrivalent, preservative 1 completed Sudha Glass [facility] 02/08/2025 09:44:34 Influenza, split virus, quadrivalent, preservative 0 completed Sudha Glass [facility] 02/08/2025 09:44:34 zoster recombinant 4 completed Sudha Glass [facility] 02/08/2025 09:44:34 zoster recombinant 3 completed Sudha Glass [facility] 02/08/2025 09:44:34 COVID-19, mRNA, LNP-S, PF, 100 mcg/0.5mL dose or 50 mcg/0.25mL dose 1 completed Sudha Glass [facility] 02/08/2025 09:44:34 COVID-19, mRNA, LNP-S, PF, 100 mcg/0.5mL dose or 50 mcg/0.25mL dose 1 completed Sudha Glass [facility] 02/08/2025 09:44:34 COVID-19, mRNA, LNP-S, PF, 100 mcg/0.5mL dose or 50 mcg/0.25mL dose 2 completed Sudha Glass [facility] 02/08/2025 09:44:34 COVID-19, mRNA, LNP-S, PF, 100 mcg/0.5mL dose or 50 mcg/0.25mL dose 1 completed Sudha Glass [facility] 02/08/2025 09:44:34 Pneumococcal conjugate PCV20, polysaccharide [id number] conjugate, adjuvant, PF 2 completed Sudha Glass [facility] 02/08/2025 09:44:34 COVID-19, mRNA, LNP-S, bivalent, PF, 50 mcg/0.5 mL or 25mcg/0.25 mL dose 3 [facility] 09:44:34 COVID-19, mRNA, LNP-S, PF, 50 mcg/0.5 mL 3 completed Sudha [facility] 02/08/2025 09:44:34 pneumococcal polysaccharide PPV23 7 completed [place] [facility] 02/08/2025 09:44:34 Tdap 8 completed Sudha Glass [facility] 02/08/2025 09:44:34 Influenza, split virus, quadrivalent, PF 7 completed Sudha Glass [facility] 02/08/2025 09:44:34 Influenza, split virus, quadrivalent, PF 6 completed Sudha Glass [facility] 02/08/2025 09:44:34 Influenza, recombinant, trivalent, PF 8 completed Sudha Glass [facility] 02/08/2025 09:44:34 Influenza, high-dose, quadrivalent, PF completed Not Available [facility] 03/12/2025 09:59:29 Past Encounters Encounter ID Performer Location Encounter Start Date Encounter Closed Date Diagnosis/Indication Diagnosis SNOMED-CT Code Diagnosis ICD10 Code Diagnosis IMO Codes Diagnosis Note [id number] AMANDEEP TRIPP MD OPHTH[facility]MO [facility] [address] [place] [address] 02/14/2025 07:46:43 02/14/2025 09:20:33 Presbyopia 89697829 H52.4 0795797 - c/w OTC readers as needed Bilateral pseudophakia 6747866366 2010184 Z96.1 7886574 - s/p YAG OU- monitor Tear film insufficiency 34440581 H04.123 97839765 - using: systane ointment qhs OU- possibly contributi ng to difficulty opening eyes symptoms- c/w systane Bilateral posterior vitreous detachment 3064124261 41140 H43.244 5609400 - Chronic- Discussed the nature of vitreous detachment with the patient. I discussed the patient monitoring for increasing flashes/fl oater/white ge in vision and to call immediatel y for any change in the vision.- Monitor with yearly dilated exam Blephariti s of upper and lower eyelids of bilateral eyes 6686829094 321731 H01.00A H01.00B 72015501 - start lid scrubs- start tobradex QID for 2 weeks then stop Paresis of extraocular muscles 63287048 H05.823 60888226 - difficulty opening eyes at night for past few months- occasional difficulty with swallowing - obtain myasthenia panel- could consider neuro eval in future Bilateral dermatochalasis of upper eyelids 8579912529 6547430 H02.831 H02.834 97490713 - moderate, possibly contributi ng to patient's feeling he cannot open eyes- also component of brow ptosis- treatment of dry eye / blephariti s as above first; obtain myasthenia panel. Consider oculoplast ics referral in future [id number] PRISCILA BOSWER MD SURGERY SCHEDULE [address] [place] [address] 02/28/2025 07:01:33 02/28/2025 07:01:44 [id number] AMANDEEP TRIPP MD [facility]MO [facility] [address] [place] [address] ,[address] [place] [address] 03/12/2025 09:56:50 03/12/2025 10:50:47 Paresis of extraocular muscles 11751026 H05.823 53821864 - difficulty opening eyes at night for past few months- negative myasthenia panel- improved slightly with tobradex regimen: suspect related to combo of dry eye and dermato- monitor for now Tear film insufficiency 97302407 H04.123 27638610 - using: systane ointment qhs OU- contributi ng to difficulty opening eyes symptoms- c/w systane- samples of Restasis, Tyrvaya and Blink omega 3s provided today; patient to sample and call back with what he prefers Blephariti s of upper and lower eyelids of bilateral eyes 9506071853 619888 H01.00A H01.00B 14750561 - improved with tobradex for 2 weeks- stop tobradex- c/w lid scrubs Bilateral dermatochalasis of upper eyelids 1587804603 1741803 H02.831 H02.834 20517396 - moderate, contributi ng to patient's feeling he cannot open eyes- also component of brow ptosis- discussed oculoplast ics referral; pt elects to treat dry eye for now, monitor Bilateral pseudophakia 4524893591 6636477 Z96.1 1758071 - s/p YAG OU- monitor [id number] KRYSTA BARBOUR PA-C ORTHOPEDI [address] [place] [address] 03/13/2025 13:15:36 03/13/2025 14:33:08 Ganglion cyst of volar wrist 5269318291 18298 M67.439 6512960552 Doing well status post excision of a right volar carpal ganglion cyst Health Concerns Section Related Observation LastModified by Organization Detai ls LastModified Time None Recorded Concern Status LastModified by Organization Details LastModified Time None Recorded Payers Encounter Date Sequence Insurance Name Policy Number Policy Serna Covered Member ID Serna Member ID Guarantor Name 03/13/2025 1 [place]ARE[place]ICARE[place] Lawrence Walsh [id number] Lawrence Walsh 03/13/2025 2 AAR Lawrence Walsh [id number] Lawrence Walsh Notes Date Note Type Note Provider Name and Address Organization Details Recorded Time 03/13/2025 text/html The patient is here for a routine scheduled postoperative follow-up visit status post excision right volar carpal ganglion cyst. Patient reports minimal pain. He does have some tenderness directly around the incision. POST OP GLOBAL VISIT Date Of Surgery: 02/28/2025 Time Post Surgery: 13 Days Surgery: Excision right volar carpal ganglion cyst Pre-Op Symptoms: Improving Average Pain level: Overall Assessment:Stanislav morales Patient arrived in: light dressing taken off? Yes during intake Other Recent upper Extremity Surgeries: n/a New Symptoms/Questions: Mr. Walsh is here for a post op visit. He says he is doing well but has some tenderness on the wrist area. Employment Status: Retired KRYSTA BARBOUR PA-C [address] [place], [address], [facility] 03/13/2025 17:29:01
--- OUTSIDE RECORDS SUMMARY | 2025-03-22 14:17 | XMS_ITS | Data Portability ---
Author Organization [facility] CHAS Farnsworth NAKINA CLOSED Address [address] [facility] [address] [place] [address] Care Team Providers Care Glass Bulb Silverer Name Role Phone ANATOLIY HORN Primary Care Provider [phone] DOT VEGA Referring Provider Assessment No assessment recorded. Plan of Treatment Reminders Order Date Submit Date Provider Last Modified By Organization Details Last Modified Time Details Appointments POST OP GLOBAL 2025 10:00A M KRYSTA BARBOUR PA-C Not available Not available Not available RECHECK 2025 10:00A M KRISTOPHER MOSLEY MD Not available Not available Not available Lab striated muscle Ab, titer, serum 2024 025 [facility], [address] [place] [address], [phone], 02/20/2025 12:30:28 acetylcho line receptor- binding Ab, serum 2024 025 [facility], [address] [place] [address], [address], 02/20/2025 02:18:38 Referral None recorded. Procedures None recorded. Surgeries None recorded. Imaging None recorded. Medication Orders TobraDex 0.3 %-0.1 % eye drops,michael pension 2024 025 [facility] 591, [address], [address], 02/14/2025 09:13:16 Patient TargetsNo targets recorded. Patient Instructions Encounter Date Encounter Id Patient Instructions Last Modified By Organization Details Last Modified Time 02/14/2025 [id number] Start tobradex drops 4x per day for two weeks, then stop Add lid scrubs few times per week Continue systane gel at night Please obtain the blood test for myasthenia gravis [email or web address] Not available 02/14/2025 09:17:56 03/13/2025 [id number] Steri-Strips edgar l be placed to help [...] ence Range s for Acety lchol ine [employer] tor María ng Antib jimmy: Negat harrison: < or =0.30 nmol/ L Equiv ocal: 0.31- 0.49 nmol/ L Posit harrison: > or =0.50 nmol/ L Not Available [facility] [address] [place] [address], [address], 02/20/2025 02:18:38 02/15/2002/20/2025 STRIA ANNA MUSCL E AB, REFLE X TITER striated muscle Ab, reflex titer NEGATI VE negati ve normal This test was donita painter and its emily tical perfo rmanc e kristian cteri stics have been deter mined by [facility]. It has not been clear ed or appro desmond by the FDA. This assay has been valid ated pursu ant to the CLIA regul ation s and is used for clini ania purpo ses. Not Available [facility] [address] [place], [address], 02/20/2025 12:30:28 02/29/2002/28/2025 SURGI ANIA surgical SEE BELOW normal Surgi ania Patho logy Danielle t NAME: ALVARO CABAN ND PATH: SS-25 [...] are as noted above . WARD HUDSON IEL-P MD Echo GONZALEZ Out Date: 03/01 12:54 Page 1 of 1 Not Available [facility] [address] [place], [address], 03/01/2025 12:54:54 02/16/2002/08/2025 XR, wrist , 3 or more view [facility] [address] [place] [address] Patigeraldo t Name: LUDA Cuevageraldo t : 956 Patigeraldo t Orderi ng Provid [...] la torre MD on 2024 8:41 AM [facility] [address] [place], [address], 02/15/2025 09:47:49 Result Notes Documentation Provider Name and Address Organization Details Recorded Time Xr, Wrist, 3 Or More View : [facility] [address] [place] [address] Patient Name: LAWRENCE CARR Patient : [id number] Patient Ordering Provider: PRISCILA WITT EXAM DATE: 02/08/2025 EXAM: XR RT WRIST COMPLETE HISTORY: Previous history of cysts. COMPARISON: None. FINDINGS: There are mild degenerative changes at the first MCP joint and minimal degenerative change at the triscaphe joint and radiocarpal joint. IMPRESSION: Minimal to mild degenerative changes as described. Interpreted By: Christine Luciano MD CILA WITT MD [address] [place], [address], [facility] 02/15/2025 09:47:49 Problems Name Problem SNOMED Code Status Onset Date Resolution Date Notes Provider Name and Address Organization Details Recorded Time Presbyopia 55106042 Active 2024 AMANDEEP TRIPP MD [address] [place], [address], [facility] 08:51:14 Tear film insufficien cy 46484442 Active 2024 AMANDEEP TRIPP MD [address] [place] [address], [address], [facility] 08:51:44 Bilateral posterior vitreous detachment 1473208732594 05 Active 2024 AMANDEEP TRIPP MD [address] [place] [address], [address], [facility] 09:01:30 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 Procedures Surgical History Date Name Laterality Status Provider Name and Address Organization Details Recorded Time 02/29/20 25 Op Note completed PRISCILA WITT MD [address] [place] [address], [address], [facility] 02/28/2025 09:52:33 01/10/20 25 Aspiration Ganglion Cyst completed PRISCILA WITT MD [address] [place] [address], [address], [facility] 01/09/2025 15:36:18 03/28/19 24 YAG laser posterior capsulotomy completed Mayra Stewart [facility] 02/14/2025 08:24:53 03/28/19 23 cataract extraction and implantation of intraocular lens completed Mayra Stewart [facility] 02/14/2025 08:23:26 procedure on shoulder completed Antonieta Kelly [facility] 06/29/2024 12:21:53 Imaging Results None recorded. Procedure Notes None recorded. Medical Equipment None Reported. Allergies Allergen ID Allergen Name Allergen Category Reaction Reaction Severity Criticality Documentation Date Start Date Code Code System Note Provider Name and Address Organization Details Recorded Time 148581 E-Mycin medicatio n Not available Not available Not available 02/20/20162014 42666 8 RxNorm Comme nt: Olegario ed By: Aubree schrader Date: 2014 9:49: 34 AM; Not Available [facility] 6 08:11:38 395333 erythromy kyle medicatio n Not available Not available Not available 02/08/2025 4053 RxNorm Not Available bridgett - External Data Service - prod 5 09:24:18 167213 atorvasta tin medicatio n Not available Not available Not available 02/08/2025 11275 RxNorm muscl e/leg cramp s Mayra Stewart [facility] 5 08:31:02 Medications Name Sig Start Date [...] and Address Organization Details Last Updated DateTime 02/08/2025 190.5 cm 30 kg/m2 834445.17 g Sudha Glass [facility] 02/08/2025 09:46:43 Date Recorded Body height Provider Name an d Address Organization Details Last Updated DateTime 02/14/2025 190.5 cm Mayra Stewart [facility] 1 04/16/2024 08:30:28 Date Recorded Body height Provider Name an d Address Organization Details Last Updated DateTime 03/12/2025 190.5 cm Madiha Driver [facility] 10:03:08 Date Recorded Body height Body mass index (BMI) Body weight Provider Name and Address Organization Details Last Updated DateTime 03/13/2025 190.5 cm 30 kg/m2 640079.17 g Chela Colby [facility] 03/13/2025 13:28:37 Social History Question Answer Notes LastModified by [employer] Details LastModified Time Tobacco Smoking Status Never [facility] 06/29/2024 10:55:36 What Is Your Relationship Status? [email or web address] Information not available 06/29/2024 Sex: Unknown Functional Status Question Answer Note LastModified by [employer] Details LastModified Time How many times per week do you consume alcohol? Less than 1 time per week Information not available 06/29/2024 Do you or have you ever used any other forms of tobacco or nicotine? No [email or web address] Information not available 06/29/2024 What is your level of alcohol consumption? Occasional [email or web address] Information not available 06/29/2024 Are you currently employed? No Information not available 06/29/2024 Mental Status None recorded. Family History Relationship Description Onset Age of this Age Resolved Age Notes LastModified by Organization Details LastModified Time Brother Kidney stone [email or web address] Not av ailable 06/29/2024 10:55:36 Sister Kidney stone [email or web address] Not erika ilable 06/29/2024 10:55:36 Medical History Condition Response Erectile Dysfunction Y BPH Y Acid Reflux (GERD) Y Cancer Y Arthritis Y Seasonal Allergies Y Immunizations Vaccine Type Date Status Note Provider Nam e and Address Organization Details Recorded Time Influenza, split virus, quadrivalent, preservative 9 completed Sudha Glass [facility] 02/08/2025 09:44:34 Influenza, split virus, quadrivalent, preservative 1 completed Sudha Glass [facility] 02/08/2025 09:44:34 Influenza, split virus, quadrivalent, preservative 0 completed Sudha Glass [facility] 02/08/2025 09:44:34 zoster recombinant 4 completed Sudha Glass [facility] 02/08/2025 09:44:34 zoster recombinant 3 completed Sudha Glass [facility] 02/08/2025 09:44:34 COVID-19, mRNA, LNP-S, PF, 100 mcg/0.5mL dose or 50 mcg/0.25mL dose 1 completed Sudha Glass [facility] 02/08/2025 09:44:34 COVID-19, mRNA, LNP-S, PF, 100 mcg/0.5mL dose or 50 mcg/0.25mL dose 1 completed Sudha Glass [facility] 02/08/2025 09:44:34 COVID-19, mRNA, LNP-S, PF, 100 mcg/0.5mL dose or 50 mcg/0.25mL dose 2 completed Sudha Glass [facility] 02/08/2025 09:44:34 COVID-19, mRNA, LNP-S, PF, 100 mcg/0.5mL dose or 50 mcg/0.25mL dose 1 completed Sudha Glass [facility] 02/08/2025 09:44:34 Pneumococcal conjugate PCV20, polysaccharide [id number] conjugate, adjuvant, PF 2 completed Sudha Glass [facility] 02/08/2025 09:44:34 COVID-19, mRNA, LNP-S, bivalent, PF, 50 mcg/0.5 mL or 25mcg/0.25 mL dose 3 completed Sudha Glass [facility] 02/08/2025 09:44:34 COVID-19, mRNA, LNP-S, PF, 50 mcg/0.5 mL 3 completed Sudha Glass [facility] 02/08/2025 09:44:34 pneumococcal polysaccharide PPV23 7 completed Sudha Glass [facility] 02/08/2025 09:44:34 Tdap 8 completed Sudha Glass [facility] 02/08/2025 09:44:34 Influenza, split virus, quadrivalent, PF 7 completed Sudha Glass [facility] 02/08/2025 09:44:34 Influenza, split virus, quadrivalent, PF 6 completed Sudha Glass [facility] 02/08/2025 09:44:34 Influenza, recombinant, trivalent, PF 8 completed [facility] 02/08/2025 09:44:34 Influenza, high-dose, quadrivalent, PF 5 completed Not Available [facility] 03/12/2025 09:59:29 Past Encounters Encounter ID Performer Location Encounter Start Date Encounter Closed Date Diagnosis/Indication Diagnosis SNOMED-CT Code Diagnosis ICD10 Code Diagnosis IMO Codes Diagnosis Note [id number] MD CASANDRA PENA [facility] [address] [place] [id number] 06/29/2024 10:47:53 06/29/2024 12:49:24 Benign prostatic hyperplasia with outflow obstruction 358358578 N40.1 Primary er ectile dysfunction 016762313 N52.9 We will readdress this at follow-up in 4 to 6 weeks Acute urin deyvi tract infection 947508972 N39.0 [id number] MD CASANDRA PENA [facility] [address] [place] [id number] 09/03/2024 14:01:49 09/03/2024 15:23:03 Benign prostatic hyperplasia with outflow obstruction 089868523 N40.1 N13.8 05574469 Follow-up 6 months, he will decrease his tamsulosin to once per day Primary er ectile dysfunction 605607021 N52.9 [id number] As above [id number] PRISCILA WITT MD [facility] [address] [place] [address] 01/09/2025 14:46:54 01/09/2025 15:37:37 Ganglion cyst of volar wrist 4640010818 73260 M67.439 [id number] Aspirated to provide some diagnostic and therapeuti c purposes. Consider excision if he gets enough symptomati c relief from the pain. If the pain persists then follow-up with x-rays AP lateral and hyperprona anna view of the wrist [id number] PRISCILA WITT MD [facility] [address] [place] [address] 02/08/2025 09:23:00 02/08/2025 10:18:45 Ganglion cyst of volar wrist 1792316675 26141 M67.439 [id number] Recurrent after aspiration , the cyst is tender, the STT joint is nontender. X-rays show minimal arthritic change. It is my opinion thus that removal of the cyst should provide relief from the pain, the pain feels like it restrains his motion in flexion which is more along the lines of the cyst. After review of clinical exam and x-rays today I recommend excision right volar carpal ganglion cyst [id number] AMANDEEP TRIPP MD [facility] [address] [address] 02/14/2025 07:46:43 02/14/2025 09:20:33 Presbyopia 13714809 H52.4 1921594 - c/w OTC readers as needed Bilateral pseudophakia 8639453058 8290399 Z96.1 8117710 - s/p YAG OU- monitor Tear film insufficiency 02256763 H04.123 18825974 - using: systane ointment qhs OU- possibly contributi ng to difficulty opening eyes symptoms- c/w systane Bilateral posterior vitreous detachment 2696901041 57850 H43.778 9924635 - Chronic- Discussed the nature of vitreous detachment with the patient. I discussed the patient monitoring for increasing flashes/fl oater/white ge in vision and to call immediatel y for any change in the vision.- Monitor with yearly dilated exam Blephariti s of upper and lower eyelids of bilateral eyes 2213100265 027509 H01.00A H01.00B 25973455 - start lid scrubs- start tobradex QID for 2 weeks then stop Paresis of extraocular muscles 75963350 H05.823 48377804 - difficulty opening eyes at night for past few months- occasional difficulty with swallowing - obtain myasthenia panel- could consider neuro eval in future Bilateral dermatochalasis of upper eyelids 8696878366 7836306 H02.831 H02.834 81550783 - moderate, possibly contributi ng to patient's feeling he cannot open eyes- also component of brow ptosis- treatment of dry eye / blephariti s as above first; obtain myasthenia panel. Consider oculoplast ics referral in future [id number] PRISCILA WITT MD SURGERY SCHEDULE [address] [place] [address] 02/28/2025 07:01:33 02/28/2025 07:01:44 [id number] AMANDEEP TRIPP MD [facility] [address] [address] 03/12/2025 09:56:50 03/12/2025 10:50:47 Paresis of extraocular muscles 79305962 H05.823 95794537 - difficulty opening eyes at night for past few months- negative myasthenia panel- improved slightly with tobradex regimen: suspect related to combo of dry eye and dermato- monitor for now Tear film insufficiency 36816335 H04.123 75726165 - using: systane ointment qhs OU- contributi ng to difficulty opening eyes symptoms- c/w systane- samples of Restasis, Tyrvaya and Blink omega 3s provided today; patient to sample and call back with what he prefers Blephariti s of upper and lower eyelids of bilateral eyes 2461625530 104888 H01.00A H01.00B 77222976 - improved with tobradex for 2 weeks- stop tobradex- c/w lid scrubs Bilateral dermatochalasis of upper eyelids 4600899304 9749042 H02.831 H02.834 91211568 - moderate, contributi ng to patient's feeling he cannot open eyes- also component of brow ptosis- discussed oculoplast ics referral; pt elects to treat dry eye for now, monitor Bilateral pseudophakia 7750870692 1993616 Z96.1 3417538 - s/p YAG OU- monitor [id number] CRISTINAO LOPEZC [facility] [address] [place] [address] 03/13/2025 13:15:36 03/13/2025 14:33:08 Ganglion cyst of volar wrist 9034081559 24177 M67.439 [id number] Doing well status post excision of a right volar carpal ganglion cyst Health Concerns Section Related Observation LastModified by Organization Detai ls LastModified Time None Recorded Concern Status LastModified by Organization Details LastModified Time None Recorded Advance Directives Directive None Recorded Payers Insurance Date Sequence Insurance Name Policy Number Policy Serna Covered Member ID Serna Member ID Guarantor Name 03/15/2025 2 [facility] Lawrence Carr [id number] Lawrence Carr 03/12/2025 1 [place] Lawrence Carr [id number] Lawrence Carr Notes Date Note Type Note Provider Name and Address Organization Details Recorded Time 02/08/2025 text/html Consult requested by: Dot Juarez Care Physician: Anatoliy Horn MD Hand dominance: RightLocation: Right Wrist Average Pain level: 4 /10 Time Since Onset/Injury: 9 weeks Recent upper extremity Surgery: NoProcedure:Date of surgery:Duration: Recent Major surgeryN/AProcedure:D ate of surgery:Surgeon: In office procedure? Yes -aspiration of the right wrist ganglion cyst: 01/09/2025 Previous upper extremity surgery? YesProcedure: Excision squamous cell carcinoma right handApproximate date of surgery: 11/21/2014Surgeon (if known): Dr. Witt Have you or any of your immediate family members been seen by our hand surgeons before? Yes -Pt had surgery with Dr. Witt in 2014 Employment Status: retired Patient arrived in: N/A Left In Place? N/A Taken Off? N/A N/A Operations Advisor Strength: Mr. Carr is here for a recheck of rt wrist. XOA. He had a cyst aspirated on his rt wrist at last visit, but pt states it returned after ~1 week. He states he feels pressure/pain with movement. PRISCILA WITT MD [facility] [place], [address], [facility] 02/08/2025 10:02:09 02/14/2025 text/html ROS as noted in the HPI Difficulty opening eyes at night for the past few months AMANDEEP TRIPP MD [address] [place] [address], [address], [facility] 02/14/2025 13:30:04 03/12/2025 text/html ROS as noted in the HPI Eyes are slightly betterStill having some trouble opening eyes at night AMANDEEP TRIPP MD [address] [place] [address], [address], [facility] 03/12/2025 10:41:08 03/13/2025 text/html The patient is here for a routine scheduled postoperative follow-up visit status post excision right volar carpal ganglion cyst. Patient reports minimal pain. He does have some tenderness directly around the incision. POST OP GLOBAL VISIT Date Of Surgery: 02/28/2025 Time Post Surgery: 13 Days Surgery: Excision right volar carpal ganglion cyst Pre-Op Symptoms: Improving Average Pain level: Overall Assessment:Improving Patient arrived in: light dressing taken off? Yes during intake Other Recent upper Extremity Surgeries: n/a New Symptoms/Questions: Mr. Carr is here for a post op visit. He says he is doing well but has some tenderness on the wrist area. Employment Status: Retired KRYSTA BARBOUR PA-C [address] [place] [address], [address], [facility] 03/13/2025 17:29:01
--- OUTSIDE RECORDS SUMMARY | 2025-03-22 14:17 | XMS_ITS | Continuity of Care Document ---
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 Plan of Treatment Reminders Order Date Submit Date Provider Last Modified By Organization Details Last Modified Time Details Appointments POST OP GLOBAL 2025 10:00A M KRYSTA BARBOUR PA-C Not available Not available Not available RECHECK 2025 10:00A M KRISTOPHER MOSLEY MD Not available Not available Not available Lab striated muscle Ab, titer, serum 2024 025 [facility], [address] [place] [address], [phone], 02/20/2025 12:30:28 acetylcho line receptor- binding Ab, serum 2024 025 [facility], [address] [place] [address], [phone], 02/20/2025 02:18:38 Referral None recorded. Procedures None recorded. Surgeries None recorded. Imaging None recorded. Medication Orders TobraDex 0.3 %-0.1 % eye drops,michael pension 2024 025 [facility] 591, [address], [address], 02/14/2025 09:13:16 Patient TargetsNo targets recorded. Patient Instructions Encounter Date Encounter Id Patient Instructions Last Modified By Organization Details Last Modified Time 02/14/2025 [id number] Start tobradex drops 4x per day for two weeks, then stop Add lid scrubs few times per week Continue systane gel at night Please obtain the blood test for myasthenia gravis [email or web address] Not available 02/14/2025 09:17:56 Reason for Referral None Reported. Results Created Date Observation Date Name Description Value Unit Range Abnormal Flag Note LastModifiedBy Organization Detail LastModifiedTime 02/15/2002/20/2025 ACETY LCHL REC AB, BIND acetylchl rec Ab, bind <0.30 nmol/ L normal Refer ence Range s for Acety lchol ine Tree Trimming Line Technician tor María ng Antib jimmy: Negat harrison: < or =0.30 nmol/ L Equiv ocal: 0.31- 0.49 nmol/ L Posit harrison: > or =0.50 nmol/ L Not Available [facility] [address] [place] [address], [phone], 02/20/2025 02:18:38 02/15/2002/20/2025 STRIA NANA MUSCL E AB, REFLE X TITER striated muscle Ab, reflex titer NEGATI VE negati ve normal This test was devel oped and its emily tical perfo rmanc e kristian cteri stics have been deter mined by [facility] wilbert s. It has not been clear ed or appro desmond by the FDA. This assay has been valid ated pursu ant to the CLIA regul ation s and is used for clini ania purpo ses. Not Available [facility] [address] [place], [address], 02/20/2025 12:30:28 02/16/2002/08/2025 XR, wrist , 3 or more view [facility] [address] [place], [place] [id number] Coby martin Name: LUDA salazar : 956 Coby salazar Orderi ng Provid er: GREGORIO Price EXAM DATE: 2024 EXAM: XR RT WRIST [...] la torre MD on 2024 8:41 AM [facility] [address] [place], [address], 02/15/2025 09:47:49 Result Notes None recorded. 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 Procedures Surgical History Date Name Laterality Status Provider Name and Address Organization Details Recorded Time 02/29/20 25 Op Note completed PRISCILA BOWSER MD [address] [place] [address], [phone], [facility] 02/28/2025 09:52:33 01/10/20 25 Aspiration Ganglion Cyst completed PRISCILA BOWSER MD [address] [place] [address], [phone], [facility] 01/09/2025 15:36:18 03/28/19 24 YAG laser posterior capsulotomy completed Mayra Stewart [facility] 02/14/2025 08:24:53 03/28/19 23 cataract extraction and implantation of intraocular lens completed Mayra Stewart [facility] 02/14/2025 08:23:26 procedure on shoulder completed Antonieta Kelly [facility] 06/29/2024 12:21:53 Imaging Results None recorded. Procedure Notes None recorded. Medical Equipment None Reported. Allergies Allergen ID Allergen Name Allergen Category Reaction Reaction Severity Criticality Documentation Date Start Date Code Code System Note Provider Name and Address Organization Details Recorded Time 360805 E-Mycin medicatio n Not available Not available Not available 02/20/20162014 73723 8 RxNorm Comme nt: Olegario ed By: Aubree schrader Date: 2014 9:49: 34 AM; Not Available [facility] 6 08:11:38 465882 erythromy kyle medicatio n Not available Not available Not available 02/08/2025 4053 RxNorm Not Available bridgett - External Data Service - prod 09:24:18 536997 atorvasta tin medicatio n Not available Not available Not available 02/08/2025 84764 RxNorm muscl e/leg cramp s Mayra Stewart [facility] 08:31:02 Medications Name Sig Start Date Stop [...] Updated DateTime 02/14/2025 190.5 cm Mayra Stewart [facility] 1 04/16/2024 08:30:28 Social History Question Answer Notes LastModified by [employer] Details LastModified Time Tobacco Smoking Status Never Smoker Ysabel nicole, [facility] 06/29/2024 10:55:36 What Is Your Relationship Status? Information not available 06/29/2024 Sex: Unknown Functional Status Question Answer Note LastModified by [employer] Details LastModified Time How many times per week do you consume alcohol? Less than 1 time per week [email or web address] Information not available 06/29/2024 Do you or have you ever used any other forms of tobacco or nicotine? No Information not available 06/29/2024 What is your level of alcohol consumption? Occasional [email or web address] Information not available 06/29/2024 Are you currently employed? No [email or web address] Information not available 06/29/2024 Mental Status None recorded. Family History Relationship Description Onset Age of this Age Resolved Age Notes LastModified by Organization Details LastModified Time Brother Kidney stone [email or web address] Not av ailable 06/29/2024 10:55:36 Sister Kidney stone [email or web address] Not erika ilable 06/29/2024 10:55:36 Medical History Condition Response Erectile Dysfunction Y Acid Reflux (GERD) Y BPH Y Cancer Y Arthritis Y Seasonal Allergies Y Immunizations Vaccine Type Date Status Note Provider Nam ladan and Address Organization Details Recorded Time Influenza, split virus, quadrivalent, preservative 9 [facility] 09:44:34 Influenza, split virus, quadrivalent, preservative 1 completed [facility] 02/08/2025 09:44:34 Influenza, split virus, quadrivalent, preservative 0 completed [facility] 02/08/2025 09:44:34 zoster recombinant 4 [facility] 02/08/2025 09:44:34 zoster recombinant 3 completed Sudha Maria Luisa [facility] 02/08/2025 09:44:34 COVID-19, mRNA, LNP-S, PF, 100 mcg/0.5mL dose or 50 mcg/0.25mL dose 1 completed Sudha Glass [facility] 02/08/2025 09:44:34 COVID-19, mRNA, LNP-S, PF, 100 mcg/0.5mL dose or 50 mcg/0.25mL dose 1 [facility] 02/08/2025 09:44:34 COVID-19, mRNA, LNP-S, PF, 100 mcg/0.5mL dose or 50 mcg/0.25mL dose 2 completed Sudha [facility] 02/08/2025 09:44:34 COVID-19, mRNA, LNP-S, PF, 100 mcg/0.5mL dose or 50 mcg/0.25mL dose 1 completed Sudha Glass [facility] 02/08/2025 09:44:34 Pneumococcal conjugate PCV20, polysaccharide [id number] conjugate, adjuvant, PF 2 completed Sudha Glass [facility] 02/08/2025 09:44:34 COVID-19, mRNA, LNP-S, bivalent, PF, 50 mcg/0.5 mL or 25mcg/0.25 mL dose 3 completed Sudha [facility] 02/08/2025 09:44:34 COVID-19, mRNA, LNP-S, PF, 50 mcg/0.5 mL 3 completed [facility] 02/08/2025 09:44:34 pneumococcal polysaccharide PPV23 7 completed [facility] 02/08/2025 09:44:34 Tdap 8 completed [facility] 02/08/2025 09:44:34 Influenza, split virus, quadrivalent, PF 7 completed [facility] 02/08/2025 09:44:34 Influenza, split virus, quadrivalent, PF 6 completed [facility] 02/08/2025 09:44:34 Influenza, recombinant, trivalent, PF 8 completed [facility] 02/08/2025 09:44:34 Influenza, high-dose, quadrivalent, PF 5 completed Not Available [facility] 03/12/2025 09:59:29 Past Encounters Encounter ID Performer Location Encounter Start Date Encounter Closed Date Diagnosis/Indication Diagnosis SNOMED-CT Code Diagnosis ICD10 Code Diagnosis IMO Codes Diagnosis Note [id number] PRISCILA BOWSER MD ORTHOPEDI [address] [place] [address] 02/08/2025 09:23:00 02/08/2025 10:18:45 Ganglion cyst of volar wrist 0620344050 63910 M67.439 [id number] Recurrent after aspiration , the cyst is [...] recommend excision right volar carpal ganglion cyst [id number] AMANDEEP TRIPP MD OPHTHALMO [address] ,[address] [place] [address] 02/14/2025 07:46:43 02/14/2025 09:20:33 Presbyopia 17094823 H52.4 0733905 - c/w OTC readers as needed Bilateral pseudophakia 0417477481 4224418 Z96.1 5670586 - s/p YAG OU- monitor Tear film insufficiency 79447602 H04.123 97338542 - using: systane ointment qhs OU- possibly contributi ng to difficulty opening eyes symptoms- c/w systane Bilateral posterior vitreous detachment 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 I discussed the patient monitoring for increasing flashes/fl oater/white ge in vision and to call immediatel y for any change in the vision.- Monitor with yearly dilated exam Blephariti s of upper and lower eyelids of bilateral eyes 2545539186 927591 H01.00A H01.00B 74933591 - start lid scrubs- start tobradex QID for 2 weeks then stop Paresis of extraocular muscles 66737453 H05.823 32662026 - difficulty opening eyes at night for past few months- occasional difficulty with swallowing - obtain myasthenia panel- could consider neuro eval in future Bilateral dermatochalasis of upper eyelids 7975046479 3636273 H02.831 H02.834 61339436 - moderate, possibly contributi ng to patient's feeling he cannot open eyes- also component of brow ptosis- treatment of dry eye / blephariti s as above first; obtain myasthenia panel. Consider oculoplast ics referral in future Health Concerns Section Related Observation LastModified by Organization Detai ls LastModified Time None Recorded Concern Status LastModified by Organization Details LastModified Time None Recorded Payers Encounter Date Sequence Insurance Name Policy Number Policy Serna Covered Member ID Serna Member ID Guarantor Name 02/14/2025 1 [place]ARE[place] ([place]ICARE[place] Lawrence Walsh [id number] Lawrence Walsh 02/14/2025 2 [facility] Lawrence Walsh [id number] Lawrence Walsh Notes Date Note Type Note Provider Name and Address Organization Details Recorded Time 02/14/2025 text/html ROS as noted in the HPI Difficulty opening eyes at night for the past few months AMANDEEP TRIPP MD [address] [place], [address], [facility] 02/14/2025 13:30:04
--- OUTSIDE RECORDS SUMMARY | 2025-03-22 14:17 | XMS_ITS | Continuity of Care Document ---
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 Problems Name Problem SNOMED Code Status Onset Date Resolution Date Notes Provider Name and Address Organization Details Recorded Time Presbyopia 07528167 Active 2024 AMANDEEP TRIPP MD [address] [place] [address], [address] , [facility] 08:51:14 Tear film insufficien cy 73161967 Active 2024 AMANDEEP TRIPP MD [address] [place] [address], [address] , [facility] 08:51:44 Bilateral posterior vitreous detachment 6335854873131 05 Active 2024 AMANDEEP TRIPP MD [address] [place] [address], [address] , [facility] 09:01:30 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 Procedures Surgical History Date Name Laterality Status Provider Name and Address Organization Details Recorded Time 02/29/20 25 Op Note completed PRISCILA WITT MD [facility] [place], [address], [facility] 02/28/2025 09:52:33 01/10/20 25 Aspiration Ganglion Cyst completed PRISCILA WITT MD [address] [place], [address], [facility] 01/09/2025 15:36:18 03/28/19 24 YAG laser posterior capsulotomy completed Mayra Stewart [facility] 02/14/2025 08:24:53 03/28/19 23 cataract extraction and implantation of intraocular lens completed Mayra Stewart [facility] 02/14/2025 08:23:26 procedure on shoulder completed Antonieta Kelly [facility] 06/29/2024 12:21:53 Imaging Results None recorded. Procedure Notes None recorded. Medical Equipment None Reported. Allergies Allergen ID Allergen Name Allergen Category Reaction Reaction Severity Criticality Documentation Date Start Date Code Code System Note Provider Name and Address Organization Details Recorded Time 064983 E-Mycin medicatio n Not available Not available Not available 02/20/2016201460 8 RxNorm Comme nt: Olegario ed By: Aubree schrader Date: 2014 9:49: 34 AM; Not Available [facility] 6 08:11:38 995057 erythromy kyle medicatio n Not available Not available Not available 02/08/2025 4053 RxNorm Not Available bridgett - External Data Service - prod 5 09:24:18 173879 atorvasta tin medicatio n Not available Not available Not available 02/08/2025 67317 RxNorm muscl e/leg cramp s Mayra Stewart [facility] 5 08:31:02 Medications Name Sig Start [...] Updated DateTime 02/08/2025 190.5 cm 30 kg/m2 781663.17 g Sudha Glass [facility] 02/08/2025 09:46:43 Social History Question Answer Notes LastModified by [employer] Details LastModified Time Tobacco Smoking Status [facility]/29[facility] 10:55:36 What Is Your Relationship Status? [email or web address] Information not available 06/29/2024 Sex: Unknown Functional Status Question Answer Note LastModified by [employer] Details LastModified Time How many times per week do you consume alcohol? Less than 1 time per week [email or web address] Information not available 06/29/2024 Do you or have you ever used any other forms of tobacco or nicotine? No [email or web address] Information not available 06/29/2024 What is your level of alcohol consumption? Occasional [email or web address] Information not available 06/29/2024 Are you currently employed? No [email or web address] Information not available 06/29/2024 Mental Status None recorded. Family History Relationship Description Onset Age of this Age Resolved Age Notes LastModified by Organization Details LastModified Time Brother Kidney stone [email or web address] Not av ailable 06/29/2024 10:55:36 Sister Kidney stone [email or web address] Not erika ilable 06/29/2024 10:55:36 Medical History Condition Response Erectile Dysfunction Y Seasonal Allergies Y Arthritis Y Acid Reflux (GERD) Y BPH Y Cancer Y Immunizations Vaccine Type Date Status Note Provider Nam e and Address Organization Details Recorded Time Influenza, split virus, quadrivalent, preservative 9 completed Sudha Glass [facility] 02/08/2025 09:44:34 Influenza, split virus, quadrivalent, preservative 1 completed Sudha Glass [facility] 02/08/2025 09:44:34 Influenza, split virus, quadrivalent, preservative 0 completed Sudha Glass [facility] 02/08/2025 09:44:34 zoster recombinant 4 completed Sudha Glass [facility] 02/08/2025 09:44:34 zoster recombinant 3 completed Sudha Glass [facility] 02/08/2025 09:44:34 COVID-19, mRNA, LNP-S, PF, 100 mcg/0.5mL dose or 50 mcg/0.25mL dose 1 completed Sudha Glass [facility] 02/08/2025 09:44:34 COVID-19, mRNA, LNP-S, PF, 100 mcg/0.5mL dose or 50 mcg/0.25mL dose 1 completed Sudha Glass [facility] 02/08/2025 09:44:34 COVID-19, mRNA, LNP-S, PF, 100 mcg/0.5mL dose or 50 mcg/0.25mL dose 2 completed Sudha Glass [facility] 02/08/2025 09:44:34 COVID-19, mRNA, LNP-S, PF, 100 mcg/0.5mL dose or 50 mcg/0.25mL dose 1 completed Sudha Glass [facility] 02/08/2025 09:44:34 Pneumococcal conjugate PCV20, polysaccharide [id number] conjugate, adjuvant, PF 2 completed Sudha Glass [facility] 02/08/2025 09:44:34 COVID-19, mRNA, LNP-S, bivalent, PF, 50 mcg/0.5 mL or 25mcg/0.25 mL dose 3 completed Sudha Glass [facility] 02/08/2025 09:44:34 COVID-19, mRNA, LNP-S, PF, 50 mcg/0.5 mL 3 completed Sudha Glass [facility] 02/08/2025 09:44:34 pneumococcal polysaccharide PPV23 7 completed [facility] 02/08/2025 09:44:34 Tdap 8 [facility] 02/08/2025 09:44:34 Influenza, split virus, quadrivalent, PF 7 completed Sudha Glass [facility] 02/08/2025 09:44:34 Influenza, split virus, quadrivalent, PF 6 completed Sudha Martinezlin [facility] 02/08/2025 09:44:34 Influenza, recombinant, trivalent, PF 8 completed [facility] 02/08/2025 09:44:34 Influenza, high-dose, quadrivalent, PF 5 completed Not Available [facility] 03/12/2025 09:59:29 Past Encounters Encounter ID Performer Location Encounter Start Date Encounter Closed Date Diagnosis/Indication Diagnosis SNOMED-CT Code Diagnosis ICD10 Code Diagnosis IMO Codes Diagnosis Note [id number] PRISCILA WITT MD ORTHOPEDI [facility] [address] [place] [address] 01/09/2025 14:46:54 01/09/2025 15:37:37 Ganglion cyst of volar wrist 0155858131 02554 M67.439 [id number] Aspirated to provide some diagnostic and therapeuti c purposes. Consider excision if he gets enough symptomati c relief from the pain. If the pain persists then follow-up with x-rays AP lateral and hyperprona macrina view of the wrist [id number] PRISCILA WITT MD [facility]TH[facility] [address] [place] [address] 02/08/2025 09:23:00 02/08/2025 10:18:45 Ganglion cyst of volar wrist 1762307265 51274 M67.439 [id number] Recurrent after aspiration , the cyst is [...] recommend excision right volar carpal ganglion cyst Health Concerns Section Related Observation LastModified by Organization Detai ls LastModified Time None Recorded Concern Status LastModified by Organization Details LastModified Time None Recorded Payers Encounter Date Sequence Insurance Name Policy Number Policy Serna Covered Member ID Serna Member ID Guarantor Name 02/08/2025 1 [place] Lawrence Walsh [id number] Lawrence Walsh 02/08/2025 2 [facility] Lawrence Walsh [id number] Lawrence Walsh Notes Date Note Type Note [...] In Place? N/A Taken Off? N/A N/A [employer]visor [employer]: Mr. Walsh is here for a recheck of rt wrist. XOA. He had a cyst aspirated on his rt wrist at last visit, but pt states it returned after ~1 week. He states he feels pressure/pain with movement. PRISCILA WITT [facility] [place], [address], [facility] 02/08/2025 10:02:09
--- OUTSIDE RECORDS SUMMARY | 2025-03-22 14:18 | XMS_ITS | Continuity of Care Document ---
Author Organization [facility], ORTHOPEDICS [address] [place] [id number] Care Team Providers Care Mechanical Designer Name Role Phone ANATOLIY HORN Primary Care Provider DOT SPEARS Referring Provider Assessment No assessment recorded. Plan [...] XR, wrist , 3 or more view [facility] [address] [facility] [place] [address] Patien t Name: LUDA Tenorio t : [...] la torre MD on 2024 8:41 AM [facility] [address] [place], [address], 02/15/2025 09:47:49 Result Notes None recorded. 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 Procedures Surgical History Date Name Laterality Status Provider Name and Address Organization Details Recorded Time 02/29/20 25 Op Note completed PRISCILA WITT MD [facility] [place], [address], [facility] 02/28/2025 09:52:33 01/10/20 25 Aspiration Ganglion Cyst completed PRISCILA WITT MD [address] [place], [address], [facility] 01/09/2025 15:36:18 03/28/19 24 YAG laser posterior [...] Name and Address Organization Details Recorded Time 501075 E-Mycin medicatio n Not available Not available Not available 02/20/2016201460 8 RxNorm Comme nt: Olegario ed By: Aubree schrader Date: 2014 9:49: 34 AM; Not Available [facility] 6 08:11:38 257956 erythromy kyle medicatio n Not available Not available Not available 02/08/2025 4053 RxNorm Not Available bridgett - External Data Service - prod 5 09:24:18 160332 atorvasta tin medicatio n Not available Not available Not available 02/08/2025 74299 RxNorm muscl e/leg cramp s Mayra Stewart [facility] 5 08:31:02 Medications Name Sig Start [...] and Address Organization Details Last Updated DateTime 01/09/2025 190.5 cm 30 kg/m2 190355.17 g Anabela Lal [facility] 01/09/2025 15:07:02 Social History Question Answer Notes LastModified by [facility] Details LastModified Time Tobacco Smoking Status [facility] 06/29/2024 10:55:36 What Is Your Relationship Status? [email or web address] Information not available 06/29/2024 Sex: Unknown Functional Status Question Answer Note LastModified by [facility] Details LastModified Time How many times per week do you consume alcohol? Less than 1 time per week [email or web address] Information not available 06/29/2024 Do you or have you ever used any other forms of tobacco or nicotine? No [email or web address] Information not available 06/29/2024 What is your level of alcohol consumption? Occasional Information not available 06/29/2024 Are you currently employed? No [email or web address] Information not available 06/29/2024 Mental Status None recorded. Family History Relationship Description Onset Age of this Age Resolved Age Notes LastModified by Organization Details LastModified Time Brother Kidney stone [email or web address] Not av ailable 06/29/2024 10:55:36 Sister Kidney stone [email or web address] Not erika ilable 06/29/2024 10:55:36 Medical History Condition Response Erectile Dysfunction Y BPH Y Acid Reflux (GERD) Y Cancer Y Arthritis Y Seasonal Allergies Y Immunizations Vaccine Type Date Status Note Provider Nam e and Address Organization Details Recorded Time Influenza, split virus, quadrivalent, preservative 9 completed Sudha Glass [facility] 02/08/2025 09:44:34 Influenza, split virus, quadrivalent, preservative 1 completed Sudha Glass [facility] 02/08/2025 09:44:34 Influenza, split virus, quadrivalent, preservative 0 completed Sudha Glass [facility] 02/08/2025 09:44:34 zoster recombinant 4 completed Sudha Glass [facility] 02/08/2025 09:44:34 zoster recombinant 3 completed Sudha Glass [facility] 02/08/2025 09:44:34 COVID-19, mRNA, LNP-S, PF, 100 mcg/0.5mL dose or 50 mcg/0.25mL dose 1 completed Sudha Glass [facility] 02/08/2025 09:44:34 COVID-19, mRNA, LNP-S, PF, 100 mcg/0.5mL dose or 50 mcg/0.25mL dose 1 completed Sudha Glass [facility] 02/08/2025 09:44:34 COVID-19, mRNA, LNP-S, PF, 100 mcg/0.5mL dose or 50 mcg/0.25mL dose 2 completed Sudha Glass [facility] 02/08/2025 09:44:34 COVID-19, mRNA, LNP-S, PF, 100 mcg/0.5mL dose or 50 mcg/0.25mL dose 1 completed Sudha Glass [facility] 02/08/2025 09:44:34 Pneumococcal conjugate PCV20, polysaccharide EZE004 conjugate, adjuvant, PF 2 completed Sudha Glsas [facility] 02/08/2025 09:44:34 COVID-19, mRNA, LNP-S, bivalent, PF, 50 mcg/0.5 mL or 25mcg/0.25 mL dose 3 completed Sudha Glass [facility] 02/08/2025 09:44:34 COVID-19, mRNA, LNP-S, PF, 50 mcg/0.5 mL 3 completed Sudha Glass [facility] 02/08/2025 09:44:34 pneumococcal polysaccharide PPV23 7 [facility] 09:44:34 Tdap 8 completed [facility] 02/08/2025 09:44:34 Influenza, split virus, quadrivalent, PF 7 completed Sudha Glass [facility] 02/08/2025 09:44:34 Influenza, split virus, quadrivalent, PF 6 completed Stoutashley Martinezlin [facility] 02/08/2025 09:44:34 Influenza, recombinant, trivalent, PF 8 completed [facility] 02/08/2025 09:44:34 Influenza, high-dose, quadrivalent, PF 5 completed Not Available [facility] 03/12/2025 09:59:29 Past Encounters Encounter ID Performer Location Encounter Start Date Encounter Closed Date Diagnosis/Indication Diagnosis SNOMED-CT Code Diagnosis ICD10 Code Diagnosis IMO Codes Diagnosis Note [id number] PRISCILA WITT MD [facility] [address] [place] [address] 01/09/2025 14:46:54 01/09/2025 15:37:37 Ganglion cyst of volar wrist [id number] 74407 M67.439 [id number] Aspirated to provide some diagnostic and therapeuti c purposes. Consider excision if he gets enough symptomati c relief from the pain. If the pain persists then follow-up with x-rays AP lateral and hyperprona macrina view of the wrist Health Concerns Section Related Observation LastModified by Organization Detai ls LastModified Time None Recorded Concern Status LastModified by Organization Details LastModified Time None Recorded Payers Encounter Date Sequence Insurance Name Policy Number Policy Serna Covered Member ID Serna Member ID Guarantor Name 01/09/2025 1 [place] Lawrence Walsh [id number] Lawrence Walsh 01/09/2025 2 [facility] Lawrence Walsh [id number] Lawrence Walsh Notes Date Note Type Note Provider Name and Address Organization Details Recorded Time 01/09/2025 text/html Consult [facility] Physician: Anatoliy Horn MD Hand dominance: RightLocation: Right Wrist Average Pain level: 2 /10 Time Since Onset/Injury: 5 weeks Recent upper extremity Surgery: NoProcedure:Date of surgery:Duration: Recent Major surgeryN/AProcedure:D ate of surgery:Surgeon: In office procedure? No Previous upper extremity surgery? YesProcedure: Excision squamous cell carcinoma right handApproximate date of surgery: 11/21/2014Surgeon (if known): Dr. Witt Have you or any of your immediate family members been seen by our hand surgeons before? Yes -Pt had surgery with Dr. Witt in 2014 Employment Status: retiredEmployer:Occup ation: Is this injury associated with a Workers Compensation claim? No Patient arrived in: N/A Left In Place? N/A Taken Off? N/A N/A Residential Sales Rep Strength: OPNP: Mr. Walsh is here regarding knot on volar rt wrist x 5 weeks. He reports that the last two weeks knot has increased in size. He has more discomfort with the bending of his wrist. PRISCILA WITT MD [address] [place], [address], [facility] 01/09/2025 15:37:22
--- OUTSIDE RECORDS SUMMARY | 2025-03-22 14:18 | XMS_ITS | Patient Health Record ---
Author Organization [facility] Address [address] [place] [id number] Care Team Providers Care Lab Animal Technologist Name Role Phone Ap Singleton Primary Care Provider [phone] Issa Lindsey Unavailable [phone] Beverley Franz Unavailable [phone] Reena Spears Unavailable [phone] Allergies Allergen (clinical drug ingredient) Drug/Non Drug [...] Interpretation:Negative Performing Lab: Notes/Report: Negative Result: neg CBC Fingerstick (in house) Reviewed date:05/15/2024 07:36:10 [...] 02:27:19 PM Interpretation:Negative Performing Lab: Notes/Report: Negative Glycohemoglobin A1c (in hous e) Reviewed date:05/28/2024 02:42:12 PM Interpretation: Performing Lab: Notes/Report: P-Lipid Panel Reviewed date:06/05/2024 02:28:07 PM Interpretation:LDL 141;HDL 47;TG 109 Performing Lab: Notes/Report: Test performed by [facility] , [address], [place] [address] Delmar Jaramillo MD, [employer] CLIA: [id number] Cholesterol 210 <200 mg/dL Triglycerides 109 <150 [...] +11% Glycohemoglobin A1c (in hous e) Reviewed date:06/05/2024 02:27:41 PM Interpretation:5.2 Performing Lab: Notes/Report: 5.2 glycohemoglobin 5.2% 5 - 6.5 % P-Comprehensive Metabolic Pa caleb (CMP) Reviewed date:06/06/2024 04:33:36 PM Interpretation:Normal Performing Lab: Notes/Report: Test performed by [facility] [address] [place] [address] , [address] , [place] [address] Delmar Jaramillo MD, [employer] CLIA: [id number] Sodium 140 135-145 mmol/L Potassium 4.3 3.5-5.3 [...] - 38 plat 171 100 - 400 TEN-stool panel Reviewed date:10/08/2024 12:04:04 PM Interpretation:C. Coli and C. Jejuni Performing Lab: Notes/Report: C. Coli and C. Jejuni X ray : Hand, left Reviewed date:10/04/2024 01:45:04 PM Interpretation: Performing Lab: Notes/Report: X ray : Orbits, bilateral Reviewed date:10/04/2024 01:45:04 PM Interpretation: Performing Lab: Notes/Report: X ray : Wrist, left Reviewed date:10/04/2024 01:45:04 PM Interpretation: Performing Lab: Notes/Report: Medications Medication SIG (Take, Route, Fr equency, Duration) Notes Start Date End Date Status Omeprazole 40 MG 1 capsule 1/2 to 1 h our before morning meal Orally Once a day; Duration: 90 days 02/11/2025 Active Sulindac 200 MG Take 1 tablet by kvng th twice daily; Duration: 90 Active Irbesartan 150 MG 1 tab(s) orally once a day; Duration: 90 days Active Loratadine 10 MG 1 tablet Orally Once a day Active Tamsulosin HCl 0.4 MG TAKE 1 CAPSULE BY MOUTH ONCE DAILY AT BEDTIME FOR 90 DAYS Act harrison Aspirin 81 MG 1 tab(s) orally ever [...] and older) IM Intramuscular 12/20/2023 Administered Fluzone High Dose (65yr and older) IM Intramuscular 12/26/2024 Administered Fluzone PF Quad (6-35 months) Unknown [...] Status Risk Notes Problem Gastroesophageal reflux disease (740989824) GERD (gastroesophageal reflux disease) (K21.9) Active confirmed Problem Tear film insufficiency (90556392) Dry eyes, bilateral (H04.123) Active confirmed Problem Hyperglycemia (59155992) Hyperglycemia (R73.9) Active confirmed Problem Hypertension (65178758) HTN (hypertension) (I10) Active confirmed Problem Essential hypertension (38750132) Essential hypertension (I10) Active confirmed Problem Diverticulitis (77292406) Diverticulitis (K57.92) Active confirmed Problem Environmental allerg y (992482351) Environmental allergies (Z91.048) Active confirmed Problem Gastroesophageal reflux disease (675432451) Reflux (K21.9) Active confirmed Problem Mixed anxiety and depressive disorder (799742606) Depression with anxiety (F41.8) Active confirmed Problem Body mass index 30+ - obesity (829203769) BMI 30.0-30.9,adult (Z68.30) Active confirmed Problem Chronic pain (93239234) Other chronic pain (G89.29) Active confirmed Problem Conductive hearing loss, bilateral (667767089) Conductive hearing loss, bilateral (H90.0) Active confirmed Problem Tinnitus of left ear (5736038189336) Tinnitus, left ear (H93.12) Active confirmed Problem Diverticulitis of colon (680848177) Diverticulitis of large intestine without perforation or abscess without bleeding (K57.32) Active confirmed Problem Male erectile disorder (273968593) Male erectile disorder (N52.9) Active confirmed Problem Sciatica (51992864) Sciatica of right side (M54.31) Active confirmed Problem Gastroesophageal reflux disease without esophagitis (008083120) Gastroesophageal reflux disease without esophagitis (K21.9) Active confirmed Problem New daily persistent headache (406572341619424) New daily persistent headache (G44.52) Active confirmed Problem Carpal tunnel syndrome of right wrist (524463455312976) Carpal tunnel syndrome of right wrist (G56.01) Active confirmed Problem Osteoarthritis of knee (409906514) Primary osteoarthritis of both knees (M17.0) Active confirmed Problem Hemorrhoids without complication (85935450) Hemorrhoids, unspecified hemorrhoid type (K64.9) Active confirmed Problem Carpal tunnel syndrome of left wrist (198215766453324) Carpal tunnel syndrome of left wrist (G56.02) Active confirmed Problem Body mass index 30.0 0 to 34.99 (425902962851826) BMI 31.0-31.9,adult (Z68.31) Active confirmed Problem Pure hypercholesterolemia (481333783) Pure hypercholesterolemia (E78.00) Active confirmed Problem Benign prostatic hypertrophy without outflow obstruction (755110473) Benign prostatic hyperplasia without lower urinary tract symptoms (N40.0) Active confirmed Problem Prostate nodule (459757886191616) Prostate nodule (N40.2) Active confirmed Problem Tinnitus (50594135) Tinnitus, un specified laterality (H93.19) Active confirmed Problem Somatic dysfunction of right sacroiliac joint (finding) (73876816881906633) Sacroiliac joint dysfunction of right side (M53.3) Active confirmed Problem Personality change (787349934) Personality change (F68.8) Active confirmed Vital Signs Heart Rate 75 /min 03/22/2025 Blood pressure diastolic 102 mm Hg 03/22/2025 Height 75.50 in 03/22/2025 Blood pressure systolic 172 mm Hg 03/22/2025 Weight 258.6 lbs 03/22/2025 BMI 31.89 kg/m2 03/22/2025 Encounters Encounter Location Date Provider Diagnosis [facility] [address] [place] [id number] 04/27/2024 Ap Singleton Acute URI J06.9 and Acute cough R05.[address] [facility] [address] [place] [id number] 05/15/2024 Beverley Franz Adult general medical examination Z00.00 ; Cough R05.9 ; Reflux K21.9 ; Prostate nodule N40.2 ; Lipid screening Z13.220 ; HTN (hypertension) I10 ; Diverticulitis of large intestine without perforation or abscess without bleeding K57.32 ; Pure hypercholesterolemia E78.00 ; Other chronic pain G89.29 ; Primary osteoarthritis of both knees M17.0 ; Frequent urination R35.0 and BMI 31.0-31.9,adult Z68.[address] [facility] [address] [place] [id number] 05/18/2024 Beverleyyousuf Franz Pure hypercholesterolemia E78.00 ; Hyperglycemia R73.9 and Essential hypertension I10 [facility] [address] [place] [id number] 05/22/2024 Beverley Osei Hyperglycemia R73.9 [facility] [address] [place] [id number] 06/05/2024 Beverleyyousuf Franz Gastroesophageal reflux disease without esophagitis K21.9 ; Essential hypertension I10 and Pure hypercholesterolemia E78.00 [facility] [address] [place] [id number] 10/02/2024 Beverley Franz Gastroesophageal reflux disease without esophagitis K21.9 ; Environmental allergies Z91.048 ; Reflux K21.9 ; Acute diarrhea R19.7 ; Lesion of skin of nose L98.9 and BMI 30.0-30.9,adult Z68.30 [facility] [address] [place] [id number] 10/03/2024 Reena Crowdy Diarrhea of presumed infectious origin R19.7 ; Injury of left hand, initial encounter S69.92XA ; Left orbit trauma, initial encounter S05.92XA and Muscle spasms of neck M62.838 [facility] [address] [place], [place] [id number] 10/04/2024 Reena Spears [facility] [address] [place], [place] [id number] 12/26/2024 Reena Spears Ganglion cyst M67.40 ; Dry mouth R68.2 ; Ptosis, bilateral H02.403 and Encounter for immunization Z23 [facility] [address] [place], [place] [id number] 03/22/2025 Issa [place] Chest pain, unspecif ied type R07.9 [facility] [address] [place], [place] [id number] 06/05/2024 Ap Singleton [facility] [address] [place], [place] [id number] 07/05/2024 Ap Singleton [facility] [address] [place] [id number] 10/02/2024 Ap Singleton [facility] [address] [place] [id number] 10/03/2024 Ap Singleton [facility] [address] [place], [place] [id number] 10/04/2024 Reenadelmy Spears [facility] [address] [place], [place] [id number] 02/11/2025 Ap Singleton Assessments Encounter Date Diagnosis (ICD [...] about cost; will also do without for [id number] to see if cough returns 10/02/2024 Environmental allerg ies (ICD-10 - Z91.048) to add OTC Flonase daily; has been taking claritin QOD and will take daily 10/02/2024 Gastroesophageal ref lux disease without esophagitis (ICD-10 - K21.9) will try RX to see about cost; will also do without for [id number] to see if cough returns 10/03/2024 Injury of left hand, initial encounter (ICD-10 - S69.92XA) 10/03/2024 Diarrhea of presumed infectious origin (ICD-10 - R19.7) 12/26/2024 Ganglion cyst (ICD-1 0 - M67.40) 12/26/2024 Dry mouth (ICD-10 - R68.2) This was due to his oxybutynin and he stopped it. He will call his urologist to see what his next recommendations would be. 03/22/2025 Chest pain, unspecif ied type (ICD-10 - R07.9) Sent patient to [facility] ER for further evaluation 12/26/2024 Ptosis, bilateral (ICD-10 - H02.403) 10/03/2024 Left orbit trauma, initial encounter (ICD-10 [...] R19.7) encouraged bland diet until diarrhea ceases 12/26/2024 Encounter for immunization (ICD-10 - Z23) 10/03/2024 Muscle spasms of nec k (ICD-10 - M62.838) 10/02/2024 Lesion of skin of no se (ICD-10 - L98.9) has derm appt 12/2024 ; reinforced use of sun screen; he does play alot of golf 05/15/2024 Lipid screening (ICD -10 - Z13.220) will RTC for fasting Lipids 10/02/2024 BMI 30.0-30.9,adult (ICD-10 - Z68.30) 05/15/2024 HTN (hypertension) (ICD-10 - I10) 05/15/2024 [...] P-Magnesium 05/18/2024 Next Appt Details Provider Name:Issa Segundo ry, 03/22/2025 02:15:00 PM, [address], [place], [id number], Provider Name:Beverley elena, 04/08/2025 10:00:00 AM, [address], [address], [place], [id number], Insurance Providers Payer Name Payer Address Payer Phone Subscriber Number Group Number Insured Name Patient Relationship to Insured Coverage Start Date Coverage End Date MEDICARE PART B [address] [address] [place] [id number] [phone] [id number] Lawrence Wang Self - patient is the insured [facility] [facility] [address] [place] [id number] Lawrence Wang Self - patient is the insured Medications [...] Dr. Khan 01/15/2020 Hospitalization History Reason Date(Month/Year) [facility] ER-right arm pain 09/16/18 Diverticulitis 12-17-09
--- OUTSIDE RECORDS SUMMARY | 2025-03-22 14:18 | XMS_ITS | Continuity of Care Document ---
Author Organization [facility], SURGERY SCHEDULE Address [address] [place] [address] Care Team Providers Care Hand Pleater Name Role Phone ANTHONY HORN Primary Care Provider GARYDOT Referring Provider [phone] Assessment No assessment recorded. Plan of [...] ence Range s for Acety lchol ine Science Editor tor María ng Antib jimmy: Negat harrison: < or =0.30 nmol/ L Equiv ocal: 0.31- 0.49 nmol/ L Posit harrison: > or =0.50 nmol/ L Not Available [facility] [address] [place] [address], [address], 02/20/2025 02:18:38 02/15/2002/20/2025 STRIA ANNA MUSCL E [...] for clini ania purpo ses. Not Available [facility] [address] [place], [address], 02/20/2025 12:30:28 02/29/2002/28/2025 SURGI ANIA surgical SEE [...] noted above . WARD HUDSON IEL-P MD LISA Echo d Out Date: 03/01 12:54 Page 1 of 1 Not Available [facility] [address] [place], [address], 03/01/2025 12:54:54 02/16/2002/08/2025 XR, wrist , 3 or more view [facility] [address] [place], [place] [id number] [phone] Patigeraldo t Name: LUDA salazar : [phone] [...] la torre MD on 2024 8:41 AM [facility] [address] [place], [address], 02/15/2025 09:47:49 Result Notes None recorded. 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 Procedures Surgical History Date Name Laterality Status Provider Name and Address Organization Details Recorded Time 02/29/20 25 Op Note completed PRISCILA BOWSER MD [address] [place] [address], [phone], [facility] 02/28/2025 09:52:33 01/10/20 25 Aspiration Ganglion Cyst completed PRISCILA BOWSER MD [address] [place] [address], [address], [facility] 01/09/2025 15:36:18 03/28/19 24 YAG laser posterior capsulotomy completed Mayra Stewart [facility] 02/14/2025 08:24:53 03/28/19 23 cataract extraction and implantation of intraocular lens completed Mayra Stewart [facility] 02/14/2025 08:23:26 procedure on shoulder completed Antonieta Kelly [facility] 06/29/2024 12:21:53 Imaging Results None recorded. Procedure Notes None recorded. Medical Equipment None Reported. Allergies Allergen ID Allergen Name Allergen Category Reaction Reaction Severity Criticality Documentation Date Start Date Code Code System Note Provider Name and Address Organization Details Recorded Time 312511 E-Mycin medicatio n Not available Not available Not available 02/20/2016201460 8 RxNorm Comme nt: Olegario ed By: Aubree schrader Date: 2014 9:49: 34 AM; Not Available [facility] 6 08:11:38 482848 erythromy kyle medicatio n Not available Not available Not available 02/08/2025 4053 RxNorm Not Available bridgett - External Data Service - prod 5 09:24:18 501823 atorvasta tin medicatio n Not available Not available Not available 02/08/2025 20957 RxNorm muscl e/leg cramp s Mayra Stewart [facility], [facility] 5 08:31:02 Medications Name Sig Start [...] Available Not Available Not Avai lable Vitals None Recorded Social History Question Answer Notes LastModified by Organizat ion Details LastModified Time Tobacco Smoking Status Never Smoker Ysabel Baca [facility] 06/29/2024 10:55:36 What Is Your Relationship Status? [email or web address] Information not available 06/29/2024 Sex: Unknown Functional Status Question Answer Note LastModified by Organizat ion Details LastModified Time How many times per week do you consume alcohol? Less than 1 time per week [email or web address] Information not available 06/29/2024 Do you or have you ever used any other forms of tobacco or nicotine? No Information not available 06/29/2024 What is your level of alcohol consumption? Occasional [email or web address] Information not available 06/29/2024 Are you currently employed? No Information not available 06/29/2024 Mental Status None recorded. Family History Relationship Description Onset Age of this Age Resolved Age Notes LastModified by Organization Details LastModified Time Brother Kidney stone [email or web address] Not av ailable 06/29/2024 10:55:36 Sister Kidney stone [email or web address] Not erika ilable 06/29/2024 10:55:36 Medical History Condition Response Erectile Dysfunction Y Acid Reflux (GERD) Y BPH Y Cancer Y Arthritis Y Seasonal Allergies Y Immunizations Vaccine Type Date Status Note Provider Nam e and Address Organization Details Recorded Time Influenza, split virus, quadrivalent, preservative 9 completed [facility] 02/08/2025 09:44:34 Influenza, split virus, quadrivalent, preservative 1 [facility] 09:44:34 Influenza, split virus, quadrivalent, preservative 0 completed Purmelaashley Glass [facility] 02/08/2025 09:44:34 zoster recombinant 4 completed Sudha Glass [facility] 02/08/2025 09:44:34 zoster recombinant 3 completed Sudha Glass [facility] 02/08/2025 09:44:34 COVID-19, mRNA, LNP-S, PF, 100 mcg/0.5mL dose or 50 mcg/0.25mL dose 1 completed Sudha Glass [facility] 02/08/2025 09:44:34 COVID-19, mRNA, LNP-S, PF, 100 mcg/0.5mL dose or 50 mcg/0.25mL dose 1 completed Sudha Glass [facility] 02/08/2025 09:44:34 COVID-19, mRNA, LNP-S, PF, 100 mcg/0.5mL dose or 50 mcg/0.25mL dose 2 completed Sudha Glass [facility] 02/08/2025 09:44:34 COVID-19, mRNA, LNP-S, PF, 100 mcg/0.5mL dose or 50 mcg/0.25mL dose 1 completed Sudha Glass [facility] 02/08/2025 09:44:34 Pneumococcal conjugate PCV20, polysaccharide [id number] conjugate, adjuvant, PF 2 completed Sudha Glass [facility] 02/08/2025 09:44:34 COVID-19, mRNA, LNP-S, bivalent, PF, 50 mcg/0.5 mL or 25mcg/0.25 mL dose 3 completed [facility] 02/08/2025 09:44:34 COVID-19, mRNA, LNP-S, PF, 50 mcg/0.5 mL 3 completed [facility] 02/08/2025 09:44:34 pneumococcal polysaccharide PPV23 7 completed [facility] 02/08/2025 09:44:34 Tdap 8 completed [facility] 02/08/2025 09:44:34 Influenza, split virus, quadrivalent, PF 7 completed [facility] 02/08/2025 09:44:34 Influenza, split virus, quadrivalent, PF 6 completed [facility] 02/08/2025 09:44:34 Influenza, recombinant, trivalent, PF 8 completed [facility] 02/08/2025 09:44:34 Influenza, high-dose, quadrivalent, PF 5 completed Not Available [facility] 03/12/2025 09:59:29 Past Encounters Encounter ID Performer Location Encounter Start Date Encounter Closed Date Diagnosis/Indication Diagnosis SNOMED-CT Code Diagnosis ICD10 Code Diagnosis IMO Codes Diagnosis Note [id number] PRISCILA BOWSER MD [facility]TH[facility] [address] [place] [address] 02/08/2025 09:23:00 02/08/2025 10:18:45 Ganglion cyst of volar wrist [id number] 75728 M67.439 [id number] Recurrent after aspiration , the cyst is [...] recommend excision right volar carpal ganglion cyst [id number] AMANDEEP TRIPP MD [facility] [address] [place] [address],[address] [place] [address] 02/14/2025 07:46:43 02/14/2025 09:20:33 Presbyopia 30636390 H52.4 4551839 - c/w OTC readers as needed Bilateral pseudophakia 0617726466 5573317 Z96.1 7468665 - s/p YAG OU- monitor Tear film insufficiency 08720934 H04.123 66119337 - using: systane ointment qhs OU- possibly contributi ng to difficulty opening eyes symptoms- c/w systane Bilateral posterior vitreous detachment 9304691109 73052 H43.161 9388391 - Chronic- Discussed the nature of vitreous detachment with the patient. I discussed the patient monitoring for increasing flashes/fl oater/white ge in vision and to call immediatel y for any change in the vision.- Monitor with yearly dilated exam Blephariti s of upper and lower eyelids of bilateral eyes 0962422504 825238 H01.00A H01.00B 72809889 - start lid scrubs- start tobradex QID for 2 weeks then stop Paresis of extraocular muscles 56250131 H05.823 02596100 - difficulty opening eyes at night for past few months- occasional difficulty with swallowing - obtain myasthenia panel- could consider neuro eval in future Bilateral dermatochalasis of upper eyelids 2431966700 6570855 H02.831 H02.834 20831266 - moderate, possibly contributi ng to patient's feeling he cannot open eyes- also component of brow ptosis- treatment of dry eye / blephariti s as above first; obtain myasthenia panel. Consider oculoplast ics referral in future [id number] PRISCILA BOWSER MD SURGERY SCHEDULE [address] [place] [address] 02/28/2025 07:01:33 02/28/2025 07:01:44 Health Concerns Section Related Observation LastModified by Organization Detai ls LastModified Time None Recorded Concern Status LastModified by Organization Details LastModified Time None Recorded Payers Encounter Date Sequence Insurance Name Policy Number Policy Serna Covered Member ID Serna Member ID Guarantor Name 02/28/2025 1 [employer]MED[place]ARE[place] Lawrence Walsh [id number] Lawrence Walsh 02/28/2025 2 [facility] Lawrence Walsh [id number] Lawrence Walsh
--- NOTE | 2025-03-22 14:24 | PC.NURSE ---
FSBS 108
--- NOTE | 2025-03-22 14:28 | PC.NURSE ---
fsbs 108 and manual blood pressure to R upper arm was 204/96
--- NOTE | 2025-03-22 14:29 | CT_ITS ---
FINAL REPORT TECHNIQUE: Noncontrast exam This study was performed with techniques to keep radiation doses as low as reasonably achievable, (ALARA). Individualized dose reduction techniques using automated exposure control or adjustment of mA and/or kV according to the patient's size were employed. CLINICAL HISTORY: Confusion, HTN COMPARISON: 11/28/2020 FINDINGS: CT HEAD: No abnormal density is seen. Ventricles are normal. There is no hemorrhage. No mass effect is seen. Bone windows show no evidence of fracture. IMPRESSION: No acute findings Reviewed, Interpreted and Dictated by Christopher Jaramillo MD Transcribed by Radha Sparks Authenticated and [facility]
--- NOTE | 2025-03-22 14:29 | CT_ITS ---
FINAL REPORT CLINICAL HISTORY: Confusion, right arm tingling COMPARISON: None FINDINGS: CT NECK ANGIO, WITHOUT AND WITH CONTRAST TECHNIQUE: Thin section axial CT with contrast with multiplanar 3D MIP reconstruction. This study was performed with techniques to keep radiation doses as low as reasonably achievable, (ALARA). Individualized dose reduction techniques using automated exposure control or adjustment of mA and/or kV according to the patient's size were employed. NASCET criteria and technique was utilized during interpretation. FINDINGS: Aortic arch: Arch shows no significant narrowing. Great vessel origins are widely patent. Right carotid: There is mild plaque disease at the carotid bifurcation without measurable stenosis. Left carotid: There is mild plaque disease at the carotid bifurcation without measurable stenosis. Vertebrals: Left vertebral artery is dominant. No significant stenosis is present. IMPRESSION: No significant stenosis of the cervical carotid arteries This study was performed using automated techniques to achieve radiation exposure as low as reasonably Reviewed, Interpreted and Dictated by Christopher Jaramillo MD Transcribed by Radha Sparks Authenticated and [facility]
--- NOTE | 2025-03-22 14:29 | CT_ITS ---
FINAL REPORT TECHNIQUE: Thin section axial CT with contrast with multiplanar reconstruction This study was performed with techniques to keep radiation doses as low as reasonably achievable, (ALARA). Individualized dose reduction techniques using automated exposure control or adjustment of mA and/or kV according to the patient's size were employed. CLINICAL HISTORY: Chest pain, shortness of breath, hypertension FINDINGS: Pulmonary vessels enhance in normal fashion without evidence of embolism. 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 The aortic sinus measures 45 mm in diameter. The descending aorta is borderline aneurysmal, measuring 30 mm in diameter. There is no evidence of aortic dissection or significant aortic plaque. No pulmonary mass or infiltrate is present. There is no significant pleural effusion. There is no significant pericardial effusion. No mediastinal or hilar adenopathy is present. IMPRESSION: 1. No evidence of pulmonary embolism 2. Mild fusiform aneurysm mid ascending aorta as described above, with a descending aneurysmal component, borderline in size, measuring 30 mm. Reviewed, Interpreted and Dictated by Christopher Jaramillo MD Transcribed by Radha Sparks Authenticated and . [facility]
--- NOTE | 2025-03-22 14:29 | CT_ITS ---
FINAL REPORT CLINICAL HISTORY: Confusion, right arm tingling, hypertension COMPARISON: None FINDINGS: CTA HEAD TECHNIQUE: Thin section axial CT with contrast with 3D MIP reconstruction This study was performed with techniques to keep radiation doses as low as reasonably achievable, (ALARA). Individualized dose reduction techniques using automated exposure control or adjustment of mA and/or kV according to the patient's size were employed. FINDINGS: No aneurysm is seen. Major intracranial vessels are patent without significant stenosis. There are mild stenoses of the proximal bilateral posterior cerebral arteries. IMPRESSION: Major intracranial vessels are patent without significant stenosis. This study was performed using automated techniques to achieve radiation exposure as low as reasonably achievable Reviewed, Interpreted and Dictated by Christopher Jaramillo MD Transcribed by Radha Sparks Authenticated and [facility]
[2025-03-22 14:34] LABS: Coronavirus 19, PCR Not Detected (NotDetected); Influenza A, PCR Not Detected (NotDetected); Influenza B, PCR Not Detected (NotDetected)
--- NOTE | 2025-03-22 14:35 | ED_ITS ---
Discharge Plan Disposition Patient Disposition: Home, Self-Care Prescriptions Prescriptions: No Action omeprazole 40 mg capsule,delayed release(DR/EC) 40 mg PO DAILY Patient Comments: TAKE 1 CAPSULE BY MOUTH ONCE DAILY 30 MINUTES BEFORE MORNING MEAL oxybutynin chloride 10 mg tablet extended release 24hr 10 mg PO DAILY 90 Days Qty: 90 1RF tamsulosin [Flomax] 0.4 mg capsule 0.4 mg PO DAILY 90 Days Qty: 90 1RF lansoprazole 30 MG capsule,delayed release(DR/EC) 30 mg PO DAILY irbesartan 150 MG tablet 150 mg PO DAILY loratadine 10 MG tablet 10 mg PO DAILY aspirin 81 mg tablet,delayed release (DR/EC) 81 mg PO DAILY sulindac 200 MG tablet 200 mg PO BID Referrals Follow up/Referrals: Christopher Singleton MD [Primary Care Provider, Medical] - See instructions Activity Restrictions/Add. Instructions Additional Instructions/Restrictions: The radiologist read regarding your ascending aorta is below. There is a mild dilatation of your aorta technically a mild aneurysm. This needs to be closely followed. No evidence of any dissection or suspicion at the moment that this is the cause of your symptoms. No emergent medical condition identified regarding your dyspnea. No evidence of a blood clot pneumonia heart failure etc. I recommend you closely follow-up with cardiology to keep an eye on this aneurysm. Also recommend you keep a daily blood pressure log morning afternoon and night to discuss titration of your blood pressure medications at home with your crane hooker or your primary care doctor. 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 The aortic sinus measures 45 mm in diameter. The descending aorta is borderline aneurysmal, measuring 30 mm in diameter. Clinical Impressions Clinical Impression: Hypertension, Dyspnea, Aortic aneurysm Print Language Print Language: Portuguese Discharge ED Provider: Vinh Leo [facility] <Vinh Leo MD - Last Filed: 03/22/25 15:04> General Chief Complaint: Shortness of Breath/Dyspnea Stated Complaint: Chest pain Time Seen by Provider: 03/22/25 14:10 Mode of Arrival: Wheelchair Source of Information: Patient Description of Symptoms (Recalled from ER Triage Doc. by RN): pt presents to the er via wheelchair from dr lopez's office for shortness of breath, states it started today around 3am, states it woke him up and he was unable to go back to sleep until 7:30 then woke up again at 8:15 and was still very short of breath and nauseous, also reports chest pressure, has been very bloated but got some relief after having bm at 10am, states he has had a cough and congestion since this am as well, had a headache yesterday, denies one today, also felt like pins and needles were poking his left leg this am but denies that now, pt is able to answer questions appropriately but is repeating himself some, states he feels slightly confused History of Present Illness HPI narrative: Lawrence Walsh is a 70-year-old male with a past medical history of hypertension, enlarged prostate who presents to the emergency department for complaints of chest discomfort and shortness of breath. Patient states that over the last 3 days, he has had shortness of breath while resting. He notes that he has to get up frequently at night due to frequent urination and his shortness of breath is worse in when he gets up. Typically he is able to go back to sleep but states over the last 3 days and especially last night, he felt like his heart was racing/pounding. He reports worsening shortness of breath over that time as well. He denies any history of heart attacks or heart failure. He was seen by his primary care doctor today who noted that he was hypertensive and sent him to the emergency department for further cardiac workup. Patient reports a discomfort and heaviness in his chest. He also reports some tingling in his right wrist at this time but notes that he had a ganglion cyst removed at the beginning of this month but states that this tingling is new. He reports that this morning he felt some tingling in his left foot but that resolved. Subjectively he feels mildly confused. Related Data Home Medications ?Medication ?Instructions ?Recorded ?Confirmed irbesartan 150 mg tablet 150 mg PO DAILY . 09/16/18 0 10/15/24 lansoprazole 30 mg capsule,delayed 30 mg PO DAILY . 10/15/24 release loratadine 10 mg tablet 10 mg PO DAILY allergies 10/15/24 sulindac 200 mg tablet 200 mg PO BID Arthritis 03/2810/15/24 omeprazole 40 mg capsule,delayed 40 mg PO DAILY 12/30/ 24 07/21/25 release aspirin 81 mg tablet,delayed 81 mg PO DAILY heart heal th 06/26/24 10/15/24 release Previous Rx's ?Medication ?Instructions ?Recorded oxybutynin chloride 10 mg 10 mg PO DAILY 90 days #90 t abs 05/14/24 tablet,extended release 24 hr tamsulosin 0.4 mg capsule (Flomax) 0.4 mg PO DAILY 90 days #90 caps 05/14/24 Allergies Allergy/AdvReac Type Severity Reaction Status Date / Time erythromycin base Allergy Unknown Rash Verified 10/15/24 06:58 (ERYTHROMYCIN BASE) PENDING SALE TO [facility] <Vinh Leo MD - Last Filed: 03/22/25 15:04> PENDING SALE TO [facility] Disclaimer: The information contained in this section may have been updated after the patient was seen, as this information can be updated by other users. Medical History Torn rotator cuff Surgical History History of colonoscopy Family History Grandfather Cancer Father Diabetes Hypertension Stroke Mother Hypertension Stroke Social History (Updated 10/15/24 @ 07:00 by Sammi Moe RN) Smoking Status: Never smoker alcohol intake: never substance use type: other current occupational status: retired Travel in the last 8 weeks?: None household members: spouse housing: house caffeine: No Have you lived/traveled outside [place] in past 30 days?: No Contact w/someone who lives/traveled outside US past 30 days?: No Exposure to someone with infectious disease in past 14 days?: No Do you have a fever (greater than 100.4 F or 38 C)?: No Have you tested positive for COVID-19?: No Exposed to someone with COVID-19 in past 14 days?: No Do you have a sore throat?: No Do you have a cough?: No Do you have any weakness?: No Do you have any diarrhea?: No Are you experiencing any unusual bleeding?: No Do you have any muscle aches/pain?: No Do you have any abdominal pain?: No Are you experiencing loss of taste or smell?: No Other Medical History Have you received the Flu Vaccine for this season: Yes Have you received the Pneumonia Vaccine: Yes <Vinh Leo MD - Last Filed: 03/22/25 15:04> ROS Obtained: Yes Systems reviewed as appropriate & no additional complaints except as documented Physical Exam <Vinh Leo MD - Last Filed: 03/22/25 15:04> General General appearance: alert and anxious Comment: appears uncomfortable Head Head exam: atraumatic Eye Eye exam: Present normal appearance ENT ENT exam: Present normal external ear exam Neck Neck exam: Present full ROM Chest Chest inspection: Present symmetric chest wall rise Respiratory Respiratory exam: Present normal lung sounds bilaterally and respiratory distress (mild increased work with breathing); Absent wheezes or stridor Cardiovascular Cardiovascular exam: Present regular rate and normal rhythm Abdominal Exam Abdominal exam: Present soft; Absent tenderness or guarding exam: Present deferred Extremities Exam Extremities exam: Present normal inspection Back Exam Back exam: Present normal inspection Neurological Exam Neurological exam: Present alert and oriented X3 Psychiatric Psychiatric exam: Present normal affect Skin Skin exam: Present warm and dry HEART Score <Vinh Leo MD - Last Filed: 03/22/25 15:04> HEART Score HEART Score assessment performed?: No Critical Care <Vinh Leo MD - Last Filed: 03/22/25 15:04> Critical Care Time Critical Care Time: Yes Attestation: On 03/22/25, the high probability of a clinically significant, sudden or life threatening deterioration of the following system(s) required my full and direct attention, intervention and personal management. The time I documented below is in addition to time spent performing reported procedures but includes the following listed in this critical care notation. Total Time Total Critical Care Time: 35 Medical Decision Making <Vinh Leo MD - Last Filed: 03/22/25 15:04> Chapo Inquiry Pt receiving controlled substance: No Vital Signs Vital Signs: 03/22/25 14:17 03/22/25 14:20 03/22/25 14:28 Temperature 98.6 F Temperature Source Oral Pulse Rate 83 64 Pulse Rate [Left Radial] 82 Respiratory Rate 14 14 20 Blood Pressure 203/112 H 158/92 H Blood Pressure [Right Arm] 210/106 H Blood Pressure Mean Blood Pressure Mean [Right Arm] 140 Blood Pressure Source [Right Arm] Automatic Cuff Blood Pressure Position [Right Arm] Sitting 02 Sat by Pulse Oximetry 100 100 98 Oxygen Delivery Method Room Air Room Air Room Air 03/22/25 14:29 03/22/25 14:30 03/22/25 14:41 Temperature Temperature Source Pulse Rate 68 85 Pulse Rate [Left Radial] Respiratory Rate 14 17 Blood Pressure 180/98 H 189/96 H Blood Pressure [Right Arm] Blood Pressure Mean Blood Pressure Mean [Right Arm] Blood Pressure Source [Right Arm] Blood Pressure Position [Right Arm] 02 Sat by Pulse Oximetry 100 96 97 Oxygen Delivery Method Room Air Room Air Room Air 03/22/25 14:46 03/22/25 15:00 03/22/25 15:15 Temperature Temperature Source Pulse Rate 74 66 69 Pulse Rate [Left Radial] Respiratory Rate 15 13 13 Blood Pressure 166/88 H 158/92 H 150/91 H Blood Pressure [Right Arm] Blood Pressure Mean Blood Pressure Mean [Right Arm] Blood Pressure Source [Right Arm] Blood Pressure Position [Right Arm] 02 Sat by Pulse Oximetry 96 97 96 Oxygen Delivery Method Room Air Room Air Room Air 03/22/25 15:45 03/22/25 16:00 03/22/25 16:30 Temperature Temperature Source Pulse Rate 72 74 72 Pulse Rate [Left Radial] Respiratory Rate 15 14 16 Blood Pressure 176/107 H 168/100 H 157/95 H Blood Pressure [Right Arm] Blood Pressure Mean 128 110 Blood Pressure Mean [Right Arm] Blood Pressure Source [Right Arm] Blood Pressure Position [Right Arm] 02 Sat by Pulse Oximetry 97 98 96 Oxygen Delivery Method Room Air Room Air Room Air Lab Data Labs: Lab Results 03/22/25 14:13: SARS-CoV-2 (PCR) Not detected, Influenza A Untype (PCR) Not detected, Influenza Type B (PCR) Not detected 03/22/25 14:16: WBC 7.8, RBC 5.10, Hgb 15.6, Hct 46.5, MCV 91.2, MCH 30.6, MCHC 33.5, RDW 12.1, Plt Count 192, MPV 9.0, Neut % (Auto) 64.7, Lymph % (Auto) 26.3, [place] % (Auto) 6.7, Eos % (Auto) 1.2, Baso % (Auto) 0.8, Neut # (Auto) 5.0, Lymph # (Auto) 2.0, [place] # (Auto) 0.5, Eos # (Auto) 0.1, Baso # (Auto) 0.1, Sodium 140, Potassium 4.1, Chloride 104, Carbon Dioxide 28, Anion Gap 12.1, BUN 19, Creatinine 1.00, Estimated Creat Clear 112, Estimated GFR 74, Est GFR ( Amer) 90, Glucose 104 H, Calcium 9.6, Total Bilirubin 1.1, AST 34, ALT 28, Alkaline Phosphatase 70, Troponin I < 0.01, C-Reactive Protein 1.1, NT-Pro-B Natriuret Pep 108, Total Protein 8.1, Albumin 4.8, Globulin 3.3 H, Albumin/Globulin Ratio 1.5 03/22/25 14:16 03/22/25 14:16 Response Orders (Tests/Meds): ED MEDICATIONS Generic Name Dose Route Start Last Admin Trade Name Freq PRN Reason Stop Dose Admin Sodium Chloride 10 ml 03/22/25 15:23 03/22/25 15:25 Sodium Chloride 0.9% 10ml Syr (Rad Only) IV 04/21/25 15:22 10 ml NEEDED PRN Administration Maintain IV Site Discontinued Medications Generic Name Dose Route Start Last Admin Trade Name Freq PRN Reason Stop Dose Admin Aspirin 325 mg 03/22/25 14:29 03/22/25 14:38 Aspirin 325mg Tablet PO 03/22/25 14:30 325 mg ONCE ONE Administration Iopamidol 160 ml 03/22/25 15:23 03/22/25 15:25 Iopamidol-370 (76%);100ml Bottle IV 03/22/25 15:24 160 ml ONCE ONE Administration Nitroglycerin 0.4 mg 03/22/25 14:29 03/22/25 14:38 Nitroglycerin 0.4mg Sl Tablet SL 03/22/25 14:30 0.4 mg ONCE ONE Administration Sodium Chloride 100 ml 03/22/25 15:23 03/22/25 15:25 0.9 % Sodium Chloride 50 Ml Vial IV 03/22/25 15:24 100 ml ONCE ONE Administration ORDERS Category Date Time Status CT angio chest - dissection Stat Cat Scan 03/22/25 14:[address] angio head Stat Cat Scan 03/22/25 14:[address] angio neck Stat Cat Scan 03/22/25 14:[address] head/brain wo con Stat Cat Scan 12/26/25 14:29 Completed BNP [NT Pro Brain Natriuretic Pep.] Stat Lab 03/22/25 14:16 Completed CBC w/Auto Diff [Complete Blood Count Auto Diff] Stat Lab 03/22/25 14:16 Completed CMP [Comprehensive Metabolic Panel] Stat Lab 03/22/25 14:16 Completed CRP [C-Reactive Protein] Stat Lab 03/22/25 14:16 Completed Rapid PCR Covid and Flu A/B Stat Lab 03/22/25 14:13 Completed Troponin I Q3H Lab 03/22/25 17:30 Ordered Troponin I Q3H Lab 03/22/25 20:30 Ordered Troponin I Stat Lab 03/22/25 14:16 Completed MDM Narrative Medical Decision Narrative: Lawrence Walsh is a 70-year-old male with a past medical history of hypertension, enlarged prostate who presents to the emergency department for complaints of chest discomfort and shortness of breath. Patient states that over the last 3 days, he has had shortness of breath while resting. He notes that he has to get up frequently at night due to frequent urination and his shortness of breath is worse in when he gets up. Typically he is able to go back to sleep but states over the last 3 days and especially last night, he felt like his heart was racing/pounding. He reports worsening shortness of breath over that time as well. He denies any history of heart attacks or heart failure. He was seen by his primary care doctor today who noted that he was hypertensive and sent him to the emergency department for further cardiac workup. Patient reports a discomfort and heaviness in his chest. He also reports some tingling in his right wrist at this time but notes that he had a ganglion cyst removed at the beginning of this month but states that this tingling is new. He reports that this morning he felt some tingling in his left foot but that resolved. Subjectively he feels mildly confused. On arrival, patient is hypertensive with blood pressure 210/106, heart rate within normal limits, afebrile, breathing comfortably on room air with appropriate oxygen saturation. Physical exam, stated above, revealed nontoxic-appearing male with mild increased work of breathing. He is alert and oriented and answering questions appropriately. He is moving all extremities and following commands appropriately. No focal neurological deficits. Cranial nerves II through XII intact. NIH of 0. Patient denies any blurry vision or double vision. Differential diagnosis includes, but is not limited to: ACS, pulmonary embolism, aortic dissection, hypertensive emergency, among others. The most morbid conditions were considered and workup was based on these. Patient was administered 325 mg of aspirin and 1 sublingual nitroglycerin tablet. EKG interpreted by me personally. Normal sinus rhythm. Very mild ST depression in V4 but no T wave inversions. QTc normal at 418 At this time, patient's workup is pending. Patient's blood pressure has improved to 158/92 at this time. <Ap Kirkland MD - Last Filed: 03/22/25 16:59> Vital Signs Vital Signs: 03/22/25 14:17 03/22/25 14:20 03/22/25 14:28 Temperature 98.6 F Temperature Source Oral Pulse Rate 83 64 Pulse Rate [Left Radial] 82 Respiratory Rate 14 14 20 Blood Pressure 203/112 H 158/92 H Blood Pressure [Right Arm] 210/106 H Blood Pressure Mean Blood Pressure Mean [Right Arm] 140 Blood Pressure Source [Right Arm] Automatic Cuff Blood Pressure Position [Right Arm] Sitting 02 Sat by Pulse Oximetry 100 100 98 Oxygen Delivery Method Room Air Room Air Room Air 03/22/25 14:29 03/22/25 14:30 03/22/25 14:41 Temperature Temperature Source Pulse Rate 68 85 Pulse Rate [Left Radial] Respiratory Rate 14 17 Blood Pressure 180/98 H 189/96 H Blood Pressure [Right Arm] Blood Pressure Mean Blood Pressure Mean [Right Arm] Blood Pressure Source [Right Arm] Blood Pressure Position [Right Arm] 02 Sat by Pulse Oximetry 100 96 97 Oxygen Delivery Method Room Air Room Air Room Air 03/22/25 14:46 03/22/25 15:00 03/22/25 15:15 Temperature Temperature Source Pulse Rate 74 66 69 Pulse Rate [Left Radial] Respiratory Rate 15 13 13 Blood Pressure 166/88 H 158/92 H 150/91 H Blood Pressure [Right Arm] Blood Pressure Mean Blood Pressure Mean [Right Arm] Blood Pressure Source [Right Arm] Blood Pressure Position [Right Arm] 02 Sat by Pulse Oximetry 96 97 96 Oxygen Delivery Method Room Air Room Air Room Air 03/22/25 15:45 03/22/25 16:00 03/22/25 16:30 Temperature Temperature Source Pulse Rate 72 74 72 Pulse Rate [Left Radial] Respiratory Rate 15 14 16 Blood Pressure 176/107 H 168/100 H 157/95 H Blood Pressure [Right Arm] Blood Pressure Mean 128 110 Blood Pressure Mean [Right Arm] Blood Pressure Source [Right Arm] Blood Pressure Position [Right Arm] 02 Sat by Pulse Oximetry 97 98 96 Oxygen Delivery Method Room Air Room Air Room Air Lab Data Lab results reviewed: Yes I reviewed the patient's lab results. Labs: Lab Results 03/22/25 14:13: SARS-CoV-2 (PCR) Not detected, Influenza A Untype (PCR) Not detected, Influenza Type B (PCR) Not detected 03/22/25 14:16: WBC 7.8, RBC 5.10, Hgb 15.6, Hct 46.5, MCV 91.2, MCH 30.6, MCHC 33.5, RDW 12.1, Plt Count 192, MPV 9.0, Neut % (Auto) 64.7, Lymph % (Auto) 26.3, [place] % (Auto) 6.7, Eos % (Auto) 1.2, Baso % (Auto) 0.8, Neut # (Auto) 5.0, Lymph # (Auto) 2.0, [place] # (Auto) 0.5, Eos # (Auto) 0.1, Baso # (Auto) 0.1, Sodium 140, Potassium 4.1, Chloride 104, Carbon Dioxide 28, Anion Gap 12.1, BUN 19, Creatinine 1.00, Estimated Creat Clear 112, Estimated GFR 74, Est GFR ( Amer) 90, Glucose 104 H, Calcium 9.6, Total Bilirubin 1.1, AST 34, ALT 28, Alkaline Phosphatase 70, Troponin I < 0.01, C-Reactive Protein 1.1, NT-Pro-B Natriuret Pep 108, Total Protein 8.1, Albumin 4.8, Globulin 3.3 H, Albumin/Globulin Ratio 1.5 Response Orders (Tests/Meds): ED MEDICATIONS Generic Name Dose Route Start Last Admin Trade Name Freq PRN Reason Stop Dose Admin Sodium Chloride 10 ml 03/22/25 15:23 03/22/25 15:25 Sodium Chloride 0.9% 10ml Syr (Rad Only) IV 04/21/25 15:22 10 ml NEEDED PRN Administration Maintain IV Site Discontinued Medications Generic Name Dose Route Start Last Admin Trade Name Freq PRN Reason Stop Dose Admin Aspirin 325 mg 03/22/25 14:29 03/22/25 14:38 Aspirin 325mg Tablet PO 03/22/25 14:30 325 mg ONCE ONE Administration Iopamidol 160 ml 03/22/25 15:23 03/22/25 15:25 Iopamidol-370 (76%);100ml Bottle IV 03/22/25 15:24 160 ml ONCE ONE Administration Nitroglycerin 0.4 mg 03/22/25 14:29 03/22/25 14:38 Nitroglycerin 0.4mg Sl Tablet SL 03/22/25 14:30 0.4 mg ONCE ONE Administration Sodium Chloride 100 ml 03/22/25 15:23 03/22/25 15:25 0.9 % Sodium Chloride 50 Ml Vial IV 03/22/25 15:24 100 ml ONCE ONE Administration ORDERS Category Date Time Status CT angio chest - dissection Stat Cat Scan 03/22/25 14:[address] angio head Stat Cat Scan 03/22/25 14:[address] angio neck Stat Cat Scan 03/22/25 14:[address] head/brain wo con Stat Cat Scan 03/22/25 14:29 Completed BNP [NT Pro Brain Natriuretic Pep.] Stat Lab 03/22/25 14:16 Completed CBC w/Auto Diff [Complete Blood Count Auto Diff] Stat Lab 03/22/25 14:16 Completed CMP [Comprehensive Metabolic Panel] Stat Lab 03/22/25 14:16 Completed CRP [C-Reactive Protein] Stat Lab 03/22/25 14:16 Completed Rapid PCR Covid and Flu A/B Stat Lab 03/22/25 14:13 Completed Troponin I Q3H Lab 03/22/25 17:30 Ordered Troponin I Q3H Lab 03/22/25 20:30 Ordered Troponin I Stat Lab 03/22/25 14:16 Completed MDM Narrative Medical Decision Narrative: Lawrence Walsh is a 70-year-old male with a past medical history of hypertension, enlarged prostate who presents to the emergency department for complaints of chest discomfort and shortness of breath. Patient states that over the last 3 days, he has had shortness of breath while resting. He notes that he has to get up frequently at night due to frequent urination and his shortness of breath is worse in when he gets up. Typically he is able to go back to sleep but states over the last 3 days and especially last night, he felt like his heart was racing/pounding. He reports worsening shortness of breath over that time as well. He denies any history of heart attacks or heart failure. He was seen by his primary care doctor today who noted that he was hypertensive and sent him to the emergency department for further cardiac workup. Patient reports a discomfort and heaviness in his chest. He also reports some tingling in his right wrist at this time but notes that he had a ganglion cyst removed at the beginning of this month but states that this tingling is new. He reports that this morning he felt some tingling in his left foot but that resolved. Subjectively he feels mildly confused. On arrival, patient is hypertensive with blood pressure 210/106, heart rate within normal limits, afebrile, breathing comfortably on room air with appropriate oxygen saturation. Physical exam, stated above, revealed nontoxic-appearing male with mild increased work of breathing. He is alert and oriented and answering questions appropriately. He is moving all extremities and following commands appropriately. No focal neurological deficits. Cranial nerves II through XII intact. NIH of 0. Patient denies any blurry vision or double vision. Differential diagnosis includes, but is not limited to: ACS, pulmonary embolism, aortic dissection, hypertensive emergency, among others. The most morbid conditions were considered and workup was based on these. Patient was administered 325 mg of aspirin and 1 sublingual nitroglycerin tablet. EKG interpreted by me personally. Normal sinus rhythm. Very mild ST depression in V4 but no T wave inversions. QTc normal at 418 At this time, patient's workup is pending. Patient's blood pressure has improved to 158/92 at this time. Reassessment this is Dr. Kirkland at 4:58 PM I took over from Dr. Plummer. Patient CT scans performed which I personally interpreted shows no acute emergent medical condition from a cardiovascular standpoint. However patient does have a mild fusiform aneurysm mid ascending aorta measuring 42 mm in diameter the aortic sinuses 45 mm and ascending aorta is borderline aneurysmal at 30 mm. Patient is asymptomatic on my evaluation no definitive explanation for the patient's dyspnea. He has no chest pain at the moment. Blood pressure has spontaneously improved while in the emergency department. Patient's been advised to keep a close blood pressure log and follow-up closely with cardiology to keep an eye on this aneurysm as well as blood pressure management. I do not believe the patient needs emergent cardiothoracic surgical intervention. He has been made aware of this and will follow-up closely with cardiology return precautions emphasized. If he has any persistent chest pain shortness of breath changes in mental status strokelike symptoms etc. he will return.
[2025-03-22 14:38] LABS: Hematocrit 46.5 % (42.0-52.0); Hemoglobin 15.6 g/dL (14.1-18.0); Immature Granulocytes % 0.3 %; Mean Corpuscular HGB Conc 33.5 g/dL (31.8-35.4); Mean Corpuscular Hemoglobin 30.6 pg (27.0-31.2); Mean Corpuscular Volume 91.2 fl (80-94); Nucleated Red Blood Cells % 0 %; Platelet Count 192 K/mm3 (142-424); Red Blood Count 5.10 M/mm3 (4.60-6.20); Red Cell Distribution Width-SD 40.2 fL; White Blood Count 7.8 K/mm3 (4.8-10.8)
[2025-03-22] MEDS: NITROGLYCERIN 0.4MG SL TABLET 0.4 MG SL (14:38)
[2025-03-22] MEDS: ASPIRIN 325MG TABLET 325 MG PO (14:38)
[2025-03-22 15:04] LABS: Alanine Aminotransferase 28 U/L (12-78); Albumin Level 4.8 g/dl (3.5-5.0); Albumin/Globulin Ratio 1.5 (1.1-1.8); Alkaline Phosphatase 70 U/L (38-126); Anion Gap 12.1 mEq/L (5-15); Aspartate Amino Transferase 34 U/L (17-59); Bilirubin,Total 1.1 mg/dl (0.2-1.3); Blood Urea Nitrogen 19 mg/dl (9-20); Calcium 9.6 mg/dl (8.4-10.2); Carbon Dioxide 28 mmol/L (22.0-30.0); Chloride 104 mmol/L (98-107); Creatinine Clearance Estimated 112 mL/min (50-200); Creatinine,Serum 1.00 mg/dl (0.66-1.25); Estimated Glomerular Filt Rate 74 ml/min (>60); GFR (African American) 90 ML/MIN (>60); Globulin 3.3 g/dL (1.3-3.2); Glucose 104 mg/dl (74-100); Potassium 4.1 mmoL/L (3.5-5.1); Sodium 140 mmol/L (136-145); Total Protein,Serum 8.1 g/dl (6.3-8.2)
[2025-03-22 15:18] LABS: NT Pro Brain Natriuretic Pep. 108 pg/mL (0-125)
[2025-03-22 15:21] LABS: C-Reactive Protein 1.1 mg/L (0-4)
[2025-03-22 15:25] LABS: Troponin I < 0.01 ng/ml (0.00-0.034)
[2025-03-22] MEDS: SODIUM CHLORIDE 0.9% 10ML SYR (RAD ONLY) 10 ML IV (15:25)
[2025-03-22] MEDS: 0.9 % SODIUM CHLORIDE 50 ML VIAL 100 ML IV (15:25)
[2025-03-22] MEDS: IOPAMIDOL-370 (76%);100ML BOTTLE 160 ML IV (15:25)
--- NOTE | 2025-03-22 15:37 | PC.NURSE ---
PT RETURNED FROM RADIOLOGY
--- NOTE | 2025-03-22 16:38 | PC.NURSE ---
Pt walked to the bathroom with no issues.
--- NOTE | 2025-03-22 16:47 | PC.NURSE ---
DR HERNANDEZ AT BEDSIDE UPDATING PT AND FAMILY
== END 2025-03-22 17:14 | disposition home or self-care (01) ==
PROVIDERS: Emergency Provider Student in an Organized Health Care Education/Training Program; PCP Family Medicine
DX: R07.9 Chest pain, unspecified (principal); R06.03 Acute respiratory distress; I10 Essential (primary) hypertension; I71.40 Abdominal aortic aneurysm, without rupture, unspecified; R35.0 Frequency of micturition
CPT/HCPCS: 70450; 70496; 70498; 71275; 80053; 83880; 84484; 85025; 86140; 87636; 93005; 99285; Q9967